=== PATIENT | female | born 1975 | race American Indian/Alaskan Native ===

== ENCOUNTER 2016-03-20 13:24 | Emergency (ER) | payer MEDICAID ==
[2016-03-20] MEDS ORDERED: BOOSTRIX IM ONE (21:13)
--- NOTE | 2016-03-20 21:45 | Cat Scan Report ---
FINAL REPORT EXAM: CT CERVICAL SPINE WO CON HISTORY: seziures, hit head on wall, c/o neck pain TECHNIQUE: CT cervical spine without contrast multiplanar reconstructions were obtained PRIORS: None. FINDINGS: There is some reversal of the normal cervical lordosis. There is disc space narrowing C5-C6 with small marginal osteophytes. No acute fracture identified. The facet joints demonstrate normal alignment. Spinous processes are intact. IMPRESSION: Reversal of the normal cervical lordosis which could be secondary to muscle spasm Mild degenerative disc changes at C5-C6.
--- NOTE | 2016-03-20 21:48 | Cat Scan Report ---
FINAL REPORT EXAM: CT HEAD/BRAIN WO CON HISTORY: hit head on concrete wall, concussed, hx of seizur TECHNIQUE: CT head without contrast PRIORS: None. FINDINGS: No acute intra-axial or extra-axial hemorrhage is identified. There is no evidence of midline shift or mass effect. The ventricles and sulci are within normal limits. Humphrey-white matter differentiation is intact. No acute parenchymal abnormalities seen. Bony calvarium is grossly intact. Visualized portions of the mastoids and paranasal sinuses are unremarkable. IMPRESSION: Negative CT head
[2016-03-20] MEDS ORDERED: KEPPRA PO ONE (23:19)
--- NOTE | 2016-03-20 23:21 | Emergency Department Report ---
HPI - General Chief Complaint: Neck Pain/Injury Time Seen by Provider: 03/20/16 20:52 - HPI HPI: 41F PMH epilepsy p/w c/o headache. Patient states she was visiting family member residential yesterday. He is bathroom and residential and as she stood up accidentally caught hair on piece of metal sticking out of concrete wall. Patient states she was startled and lost her balance and hit the front of her scalp against the concrete wall. States she was dazed for several minutes, states that since yesterday she has experienced some stiffness scalp tenderness and feels headache and haziness. Patient awake alert and oriented 3 fully ambulatory without any assistance. Denies any paresthesias in upper or lower extremities states her neck feels stiff and she states that she saw an abrasion in her right upper scalp region just her just above her hairline. ED Past Medical Hx - Past Medical History Previous Medical History?: Yes Hx Hypertension: Yes Hx Heart Attack/AMI: No Hx Congestive Heart Failure: No Hx Diabetes: Yes Hx Deep Vein Thrombosis: No Hx Pulmonary Embolism: No Hx GERD: Yes Hx Liver Disease: No Hx Renal Disease: No Hx Sickle Cell Disease: No Hx Arthritis: Yes Hx Seizures: Yes Hx Asthma: Yes Hx COPD: No Hx Tuberculosis: No Hx Dementia: No Hx HIV: No Additional medical history: neuropathy. fibromyalgia. dupuytren's - Surgical History Hx Coronary Stent: No Hx Pacemaker: No Hx Internal Defibrillator: No Additional Surgical History: heart surgery at . left hip surgery. bilateral feet and leg surgery age 5. left foot surgery, bone removed from toe - Social History Smoking Status: Current Some Day Smoker Substance Use Type: None - Medications Home Medications: Home Medications Medication Instructions Recorded Confirmed Last Taken Type ALPRAZolam [Xanax TAB] 1 mg PO QHS PRN 07/03/13 11/16/15 09/11/13 History Albuterol Sulfate [Proventil HFA] 1 - 2 puff IH Q6H PRN #1 [email or web address] 09/20/13 11/16/15 09/26/14 14:00 Rx Lisinopril [Zestril TAB] 20 mg PO QDAY #60 tablet 09/20/13 11/16/15 09/26/14 07: 00 Rx Gabapentin [Neurontin] 300 mg PO Q8HR #90 capsule 06/10/15 11/16/15 Unknown Rx Morphine Sulfate [Morphine Sulfate 30 mg PO BID 11/16/15 11/16/15 Unknown History ER] Ciprofloxacin HCl [Ciprofloxacin 500 mg PO Q12H #20 tab 11/21/15 Unknown Rx TAB] Insulin Aspart Protam & Aspart 40 unit SQ BID #1 pen 11/21/15 Unknown Rx [NovoLOG Mix 70-30 Flexpen] Sulfamethoxazole/Trimethoprim 1 each PO BID #20 tablet 11/21/15 Unknown Rx [Bactrim DS TAB] Acetaminophen [Acetaminophen TAB] 500 mg PO Q8H PRN #25 tablet 03/20/16 Unknown Rx Neomy/Baci/Polymyx Oint [Triple 10 applic TP BID #1 tube 03/20/16 Unknown Rx Antibiotic] ED Review of Systems ROS: Stated complaint: NECK/HEAD INJURY Other details as noted in HPI Constitutional: denies: chills, fever Eyes: denies: eye pain, eye discharge, vision change ENT: denies: ear pain, throat pain Respiratory: denies: cough, shortness of breath, wheezing Cardiovascular: denies: chest pain, palpitations Endocrine: no symptoms reported Gastrointestinal: denies: abdominal pain, nausea, diarrhea Genitourinary: denies: urgency, dysuria, discharge Musculoskeletal: denies: back pain, joint swelling, arthralgia Skin: denies: rash, lesions Neurological: headache. denies: weakness, paresthesias Psychiatric: denies: anxiety, depression Hematological/Lymphatic: denies: easy bleeding, easy bruising Physical Exam - Physical Exam Vital Signs: Vital Signs 03/20/16 14:24 Temperature 98.4 F Pulse Rate 112 H Blood Pressure 177/122 O2 Sat by Pulse 100 Oximetry General: General: Well appearing, well nourished, in no distress. Oriented x 3, normal mood and affect . Ambulating without difficulty. Skin: Good turgor, no rash, unusual bruising or prominent lesions HEENT: Head: Normocephalic, small 1 cm subdermal hematoma above her right side hairline and scalp forehead, small 1 cm area of abrasion below hair right upper scalp region, no visible or palpable masses, depressions, or scaring. Eyes: Visual acuity intact, conjunctiva clear, sclera non-icteric, EOM intact, PERRLA Ears: EACs clear, TMs translucent & mobile, ossicles nl appearance, hearing intact. Neck: Supple, without lesions, bruits, or adenopathy, thyroid non-enlarged and non-tender Heart: No cardiomegaly or thrills; regular rate and rhythm, no murmur or gallop Lungs: Clear to auscultation and percussion Abdomen: Bowel sounds normal, no tenderness, organomegaly, masses, or hernia Back: Spine normal without deformity or tenderness, no CVA tenderness Musculoskeletal: Normal gait and station. No misalignment, asymmetry, crepitation, defects,tenderness, masses, effusions, decreased range of motion, instability, atrophy or abnormal strength or tone in the head, neck, spine, ribs , pelvis or extremities. Neurologic: CN 2-12 normal. Sensation to pain, touch, and proprioception normal. DTRs normal in upper and lower extremities. No pathologic reflexes. Psychiatric: Oriented X3, intact recent and remote memory, judgment and insight , normal mood and affect. ED Course Vital Signs 03/20/16 14:24 Temperature 98.4 F Pulse Rate 112 H Blood Pressure 177/122 O2 Sat by Pulse 100 Oximetry ED Medical Decision Making - Medical Decision Making A/P: Minor head injury, concussion, scalp abrasion 1-CT head and neck within normal limits. Small abrasion right upper scalp region no need for any closure 2-I updated patient's tetanus today, right deltoid 3-Tylenol when necessary for pain and headache 4-patient to follow up with primary care doctor and neurologist Dr. Wood this week 5- patient's urine appeared cloudy, when I asked patient about any dysuria or increased urinary frequency she stated that she has been on ciprofloxacin this week twice a day 500 mg for UTI diagnosed by her [employer]. Patient states she is a middle of her course of treatment. Already on antibiotics. 6- I rechecked patient's vital signs, BP 137/78, T 98.8 oral, HR 79, o2sat 97% Critical care attestation.: If time is entered above; I have spent that time in minutes in the direct care of this critically ill patient, excluding procedure time. ED Disposition Clinical Impression: Concussion Qualifiers: Encounter type: initial encounter Loss of consciousness presence/duration: without LOC Qualified Code(s): S06.0X0A - Concussion without loss of consciousness, initial encounter Abrasion head Qualifiers: Encounter type: initial encounter Qualified Code(s): S00.91XA - Abrasion of unspecified part of head, initial encounter Disposition: DISCHARGED TO HOME OR SELFCARE Is pt being admited?: No Does the pt Need Aspirin: No Condition: Stable Instructions: Minor Head Injury (ED), Concussion (ED), Post Concussion Syndrome (ED) Prescriptions: Acetaminophen [Acetaminophen TAB] 500 mg PO Q8H PRN #25 tablet PRN Reason: Headache Neomy/Baci/Polymyx Oint [Triple Antibiotic] 10 applic TP BID #1 tube Referrals: PRIMARY CARE, [Primary Care Provider] - 3-5 Days [facility] [Outside] - 3-5 Days FERNANDA BILLINGSLEY MD [Staff Physician] - 3-5 Days EUGENIO WOOD MD [Staff Physician] - 3-5 Days Forms: Work/School Release Form(ED) Time of Disposition: 23:21
[2016-03-21 00:07] LABS: Bacteria,Urine 3+ /HPF (Negative); Bilirubin,Urine NEG (Negative); Blood,Urine MOD (Negative); Ketones,Urine NEG (Negative); Leukocyte Esterase,Urine MOD (Negative); Mucus,Urine FEW /HPF; Nitrite,Urine NEG (Negative); Urobilinogen,Urine < 2.0 mg/dL (<2.0)
[2016-03-21 00:09] LABS: Protein,Urine >500 mg/dL (Negative)
[2016-03-21 03:51] VITALS: BP 132/97
== END 2016-03-20 23:45 | disposition home or self-care (01) ==
LOC: ED 13:24
DX: S06.0X0A Concussion without loss of consciousness, initial encounter (principal); S00.91XA Abrasion of unspecified part of head, initial encounter; I10 Essential (primary) hypertension; E11.9 Type 2 diabetes mellitus without complications; K21.9 Gastro-esophageal reflux disease without esophagitis; J45.909 Unspecified asthma, uncomplicated; F17.200 Nicotine dependence, unspecified, uncomplicated; W22.8XXA Striking against or struck by other objects, initial encounter; Y93.9 Activity, unspecified; Y92.9 Unspecified place or not applicable; Y99.9 Unspecified external cause status
CPT/HCPCS: 70450; 72125; 81001; 81025; 87086; 90471; 90715

== ENCOUNTER 2016-09-09 14:06 | Emergency (ER) | payer MEDICAID | END 2016-09-09 14:07 | disposition left against medical advice (07) | LOC: ED 14:06 | DX: S91.312A Laceration without foreign body, left foot, initial encounter (principal); E11.319 Type 2 diabetes mellitus with unspecified diabetic retinopathy without macular edema; I10 Essential (primary) hypertension; Z72.0 Tobacco use; Z91.048 Other nonmedicinal substance allergy status; Z79.4 Long term (current) use of insulin; X58.XXXA Exposure to other specified factors, initial encounter; Y93.89 Activity, other specified; Y99.9 Unspecified external cause status; Y92.89 Other specified places as the place of occurrence of the external cause; Z53.21 Procedure and treatment not carried out due to patient leaving prior to being seen by health care provider ==

== ENCOUNTER 2016-09-10 08:30 | Inpatient (IN) | payer MEDICAID ==
--- NOTE | 2016-09-10 09:40 | XRay Report ---
LEFT FOOT, 3 views: History: Fall, injury, pain Compared to 07/09/13. The second toe is surgically absent. The second and third metatarsal heads are also absent which is presumably surgical in nature. There is moderate periosteal thickening in the distal third metatarsal. Osteomyelitis is difficult to exclude in this patient. There are degenerative changes in the midfoot and first metatarsophalangeal joint. No displaced fracture is detected. There is diffuse soft tissue swelling. IMPRESSION: No acute fracture is appreciated. Is there clinical concern for osteomyelitis?
[2016-09-10] MEDS ORDERED: NACL 0.9% 1000 ML 1,000 ML IV ONE (11:28)
--- NOTE | 2016-09-10 11:35 | Emergency Department Report ---
ED Extremity Problem HPI - General Chief complaint: Extremity Injury, Lower Stated complaint: LEFT FOOT POSS BROKEN TOE/OPEN WOUND Time Seen by Provider: 09/10/16 11:15 Source: patient Mode of arrival: Ambulatory Limitations: No Limitations - History of Present Illness Initial comments: PT states 4 days ago, she was stepping off of curb and she stepped wrong and her L foot went sideways. PT states she had her L 2nd toe removed due to infection 3 months ago. PT states the surgical site was almost healed until she twisted her foot and the surgical site opened up. PT states she has had drainage from the site. PT reports that she noticed swelling 2 days ago. PT states she has not had pain, but she does have neuropathy. PT states her surgery was in [place]. PT has not followed up with her surgeon since her foot injury. MD Complaint: other (L foot injury ) Onset/Timin -: Sudden, days(s) Location: left, lower extremity Improves with: nothing Worsens with: weight bearing, walking Associated Symptoms: fever (woke up warm, did not take temp). denies: chest pain - Related Data Home Medications Medication Instructions Recorded Confirmed Last Taken ALPRAZolam [Xanax TAB] 1 mg PO QHS PRN 07/03/13 11/16/15 09/11/13 Morphine Sulfate [Morphine Sulfate 30 mg PO BID 11/16/15 11/16/15 Unknown ER] Previous Rx's Medication Instructions Recorded Last Taken Type Albuterol Sulfate [Proventil HFA] 1 - 2 puff IH Q6H PRN #1 [email or web address] 09/20/13 09/26/14 14:00 Rx Lisinopril [Zestril TAB] 20 mg PO QDAY #60 tablet 09/20/13 09/26/14 07:00 Rx Gabapentin [Neurontin] 300 mg PO Q8HR #90 capsule 06/10/15 Unknown Rx Ciprofloxacin HCl [Ciprofloxacin 500 mg PO Q12H #20 tab 11/21/15 Unknown Rx TAB] Insulin Aspart Protam & Aspart 40 unit SQ BID #1 pen 11/21/15 Unknown Rx [NovoLOG Mix 70-30 Flexpen] Sulfamethoxazole/Trimethoprim 1 each PO BID #20 tablet 11/21/15 Unknown Rx [Bactrim DS TAB] Acetaminophen [Acetaminophen TAB] 500 mg PO Q8H PRN #25 tablet 03/20/16 Unknown Rx Neomy/Baci/Polymyx Oint [Triple 10 applic TP BID #1 tube 03/20/16 Unknown Rx Antibiotic] Allergies Allergy/AdvReac Type Severity Reaction Status Date / Time eggplant Allergy Itching Uncoded 08/25/15 15:50 ED Review of Systems ROS: Stated complaint: LEFT FOOT POSS BROKEN TOE/OPEN WOUND Other details as noted in HPI Comment: All other systems reviewed and negative Constitutional: fever (subjective ) Cardiovascular: other (has not taken her bp medication today ) Musculoskeletal: as per HPI, other (L foot swelling 2 days ago ) Skin: other (draining wound ) Neurological: numbness ED Past Medical Hx - Past Medical History Previous Medical History?: Yes Hx Hypertension: Yes Hx Heart Attack/AMI: No Hx Congestive Heart Failure: No Hx Diabetes: Yes Hx Deep Vein Thrombosis: No Hx Pulmonary Embolism: No Hx GERD: Yes Hx Liver Disease: No Hx Renal Disease: No Hx Sickle Cell Disease: No Hx Arthritis: Yes Hx Seizures: Yes Hx Asthma: Yes Hx COPD: No Hx Tuberculosis: No Hx Dementia: No Hx HIV: No Additional medical history: neuropathy. fibromyalgia. dupuytren's - Surgical History Past Surgical History?: Yes Hx Coronary Stent: No Hx Pacemaker: No Hx Internal Defibrillator: No Additional Surgical History: heart surgery at . left hip surgery. bilateral feet and leg surgery age 5. left foot surgery, bone removed from toe - Social History Smoking Status: Current Some Day Smoker Substance Use Type: None - Medications Home Medications: Home Medications Medication Instructions Recorded Confirmed Last Taken Type ALPRAZolam [Xanax TAB] 1 mg PO QHS PRN 07/03/13 11/16/15 09/11/13 History Albuterol Sulfate [Proventil HFA] 1 - 2 puff IH Q6H PRN #1 [email or web address] 09/20/13 11/16/15 09/26/14 14:00 Rx Lisinopril [Zestril TAB] 20 mg PO QDAY #60 tablet 09/20/13 11/16/15 09/26/14 07: 00 Rx Gabapentin [Neurontin] 300 mg PO Q8HR #90 capsule 06/10/15 11/16/15 Unknown Rx Morphine Sulfate [Morphine Sulfate 30 mg PO BID 11/16/15 11/16/15 Unknown History ER] Ciprofloxacin HCl [Ciprofloxacin 500 mg PO Q12H #20 tab 11/21/15 Unknown Rx TAB] Insulin Aspart Protam & Aspart 40 unit SQ BID #1 pen 11/21/15 Unknown Rx [NovoLOG Mix 70-30 Flexpen] Sulfamethoxazole/Trimethoprim 1 each PO BID #20 tablet 11/21/15 Unknown Rx [Bactrim DS TAB] Acetaminophen [Acetaminophen TAB] 500 mg PO Q8H PRN #25 tablet 03/20/16 Unknown Rx Neomy/Baci/Polymyx Oint [Triple 10 applic TP BID #1 tube 03/20/16 Unknown Rx Antibiotic] ED Physical Exam - General Limitations: No Limitations General appearance: alert, in no apparent distress - Head Head exam: Present: atraumatic, normocephalic - Eye Eye exam: Present: normal appearance. Absent: conjunctival injection - ENT ENT exam: Present: normal exam, mucous membranes moist, normal external ear exam - Neck Neck exam: Present: normal inspection, full ROM - Respiratory Respiratory exam: Absent: respiratory distress - Cardiovascular Cardiovascular Exam: Present: tachycardia - Extremities Exam Extremities exam: Present: pedal edema. Absent: calf tenderness - Expanded Lower Extremity Exam Left Lower Leg exam: Absent: normal inspection (rash noted), tenderness, swelling Foot/Toe exam: Present: swelling, laceration (wound dehescence ), ecchymosis ( left 3rd toe appears bruised, hyperpigmented and swollen ), amputation (site with 5 cm linear wound, 1 cm deep ). Absent: normal inspection, tenderness, crepidus Neuro vascular tendon exam: Present: no vascular compromise, sensory deficit ( likely related to pt's neuropathy ). Absent: foot drop - Back Exam Back exam: Present: normal inspection, full ROM - Neurological Exam Neurological exam: Present: alert, oriented X3 - Psychiatric Psychiatric exam: Present: normal affect, normal mood ED Course Vital Signs 09/10/16 09/10/16 09/10/16 08:37 12:00 12:04 Temperature 97.7 F 98.2 F Pulse Rate 126 H 104 H Respiratory 16 20 Rate Blood Pressure 147/109 Blood Pressure 180/124 [Right] O2 Sat by Pulse 100 99 Oximetry 09/10/16 09/10/16 14:07 14:27 Temperature 98.8 F Pulse Rate 109 H 112 H Respiratory 16 Rate Blood Pressure 194/110 Blood Pressure 195/110 [Right] O2 Sat by Pulse 99 Oximetry - Reevaluation(s) Reevaluation #1: 09/10/16 12:27 PT aware of XR results. PT agrees to admission - Consultations Consultation #1: 09/10/16 12:27 Dr Jimenez aware of pt and will admit - Pulse Oximetry Interpretation Digit-Finger Initial Pulse Oximetry Readin Actions Taken: none ED Medical Decision Making - Lab Data Result diagrams: 09/10/16 11:33 09/10/16 11:33 Lab Results 09/10/16 09/10/16 09/10/16 Range/Units 11:33 11:33 11:33 WBC 12.0 H (4.5-11.0) K/mm3 RBC 4.04 (3.65-5.03) M/mm3 Hgb 11.1 (10.1-14.3) gm/dl Hct 34.5 (30.3-42.9) % MCV 85 (79-97) fl MCH 27 L (28-32) pg MCHC 32 (30-34) % RDW 18.0 H (13.2-15.2) % Plt Count 378 (140-440) K/mm3 Lymph % (Auto) 24.7 (13.4-35.0) % Carlton % (Auto) 4.5 (0.0-7.3) % Eos % (Auto) 3.5 (0.0-4.3) % Baso % (Auto) 0.9 (0.0-1.8) % Lymph # 3.0 (1.2-5.4) K/mm3 Carlton # 0.5 (0.0-0.8) K/mm3 Eos # 0.4 (0.0-0.4) K/mm3 Baso # 0.1 (0.0-0.1) K/mm3 Seg Neutrophils % 66.4 (40.0-70.0) % Seg Neutrophils # 8.0 H (1.8-7.7) K/mm3 Sodium 139 (137-145) mmol/L Potassium 4.8 (3.6-5.0) mmol/L Chloride 102.3 (98-107) mmol/L Carbon Dioxide 23 (22-30) mmol/L Anion Gap 19 mmol/L BUN 18 H (7-17) mg/dL Creatinine 1.3 H (0.7-1.2) mg/dL Estimated GFR 55 ml/min BUN/Creatinine Ratio 13.84 % Glucose 157 H (65-100) mg/dL Lactic Acid 1.90 (0.7-2.0) mmol/L Calcium 9.2 (8.4-10.2) mg/dL - Radiology Data Radiology results: report reviewed XR L foot - no fx, possible OM L 3rd toe - Differential Diagnosis fracture, dislocation, dm foot infection, om Critical Care Time: No Critical care attestation.: If time is entered above; I have spent that time in minutes in the direct care of this critically ill patient, excluding procedure time. ED Disposition Clinical Impression: Diabetes Qualifiers: Diabetes mellitus type: type 1 Diabetes mellitus complication status: with skin complications Diabetes mellitus complication detail: with foot ulcer Qualified Code(s): E10.621 - Type 1 diabetes mellitus with foot ulcer Osteomyelitis of ankle or foot, acute Qualifiers: Laterality: left Qualified Code(s): M86.172 - Other acute osteomyelitis, left ankle and foot Disposition: -09 OP ADMIT IP TO THIS HOSP Is pt being admited?: Yes Does the pt Need Aspirin: No Condition: Stable Time of Disposition: 12:27
[2016-09-10 11:55] LABS: Basophils % (Auto) 0.9 % (0.0-1.8); Eosinophils % (Auto) 3.5 % (0.0-4.3); Hematocrit 34.5 % (30.3-42.9); Hemoglobin 11.1 gm/dl (10.1-14.3); Mean Corpuscular HGB Conc 32 % (30-34); Mean Corpuscular Hemoglobin 27 pg (28-32); Mean Corpuscular Volume 85 fl (79-97); Platelet Count 378 K/mm3 (140-440); Red Blood Count 4.04 M/mm3 (3.65-5.03)
[2016-09-10 12:16] LABS: BUN/Creatinine Ratio 13.84; Calcium 9.2 mg/dL (8.4-10.2); Chloride 102.3 mmol/L (98-107); Potassium 4.8 mmol/L (3.6-5.0)
[2016-09-10] MEDS ORDERED: ZOSYN/NS 3.375GM/50ML 3.375 GM/50 ML BAG IV ONE (12:29)
[2016-09-10] MEDS ORDERED: VANCOMYCIN/NS 1 GM/250 ML 1 GM/250 ML BAG IV ONE (12:30)
[2016-09-10] MEDS ORDERED: NORMODYNE IV ONE ×2 (14:11→14:23)
[2016-09-10] MEDS ORDERED: PERCOCET 5/325 ONE (14:31)
[2016-09-10] MEDS: PERCOCET 5/325 PO PRN (14:35)
[2016-09-10] MEDS ORDERED: TYLENOL PO PRN ×3 (14:43→20:09)
[2016-09-10] MEDS ORDERED: PROAIR IH PRN (14:43)
--- NOTE | 2016-09-10 14:43 | History and Physical Report ---
History of Present Illness Date of examination: 09/10/16 Date of admission: 09/10/16 12:30 Chief complaint: L foot infection and drainage of pus for 4 days. History of present illness: JENNIFER:41 y/o female with IDDM HTN Peripheral neuropathy comes in for L foot drainage of pus where her second toe was amputated.This has been happening for Pain minimal because of her lack of sensation in the foot.4 days.She attributes it to twisting her foot 4 days ago while stepping off the curb.Low grade fever present.She did not follow up with surgery in [place] where the 2 nd toe was amputated. Past Medical History Previous Medical History?: Yes Hx Hypertension: Yes Hx Diabetes: Yes Hx GERD: Yes Hx Arthritis: Yes Hx Seizures: Yes Hx Asthma: Yes Additional medical history: neuropathy. fibromyalgia. dupuytren's - Surgical History Past Surgical History?: Yes Additional Surgical History: heart surgery at . left hip surgery. bilateral feet and leg surgery age 5. left foot surgery, Second toe L foot removed recently - Social History Smoking Status: Current Some Day Smoker Substance Use Type: None - Related Data Allergies Allergy/AdvReac Type Severity Reaction Status Date / Time eggplant Allergy Itching Uncoded 08/25/15 15:50 Home Medications: Home Medications Medication Instructions Recorded Confirmed Last Taken Type ALPRAZolam [Xanax TAB] 1 mg PO QHS PRN 07/03/13 11/16/15 09/11/13 History Albuterol Sulfate [Proventil HFA] 1 - 2 puff IH Q6H PRN #1 hfa.aer.ad 09/20/13 11/16/15 09/26/14 14:00 Rx Lisinopril [Zestril TAB] 20 mg PO QDAY #60 tablet 09/20/13 11/16/15 09/26/14 07: 00 Rx Gabapentin [Neurontin] 300 mg PO Q8HR #90 capsule 06/10/15 11/16/15 Unknown Rx Morphine Sulfate [Morphine Sulfate 30 mg PO BID 11/16/15 11/16/15 Unknown History ER] Ciprofloxacin HCl [Ciprofloxacin 500 mg PO Q12H #20 tab 11/21/15 Unknown Rx TAB] Insulin Aspart Protam & Aspart 40 unit SQ BID #1 pen 11/21/15 Unknown Rx [NovoLOG Mix 70-30 Flexpen] Sulfamethoxazole/Trimethoprim 1 each PO BID #20 tablet 11/21/15 Unknown Rx [Bactrim DS TAB] Acetaminophen [Acetaminophen TAB] 500 mg PO Q8H PRN #25 tablet 03/20/16 Unknown Rx Neomy/Baci/Polymyx Oint [Triple 10 applic TP BID #1 tube 03/20/16 Unknown Rx Antibiotic] Medications and Allergies Allergies Allergy/AdvReac Type Severity Reaction Status Date / Time eggplant Allergy Itching Uncoded 08/25/15 15:50 Home Medications Medication Instructions Recorded Confirmed Last Taken Type ALPRAZolam [Xanax TAB] 1 mg PO QHS PRN 07/03/13 11/16/15 09/11/13 History Albuterol Sulfate [Proventil HFA] 1 - 2 puff IH Q6H PRN #1 hfa.aer.ad 09/20/13 11/16/15 09/26/14 14:00 Rx Lisinopril [Zestril TAB] 20 mg PO QDAY #60 tablet 09/20/13 11/16/15 09/26/14 07: 00 Rx Gabapentin [Neurontin] 300 mg PO Q8HR #90 capsule 06/10/15 11/16/15 Unknown Rx Morphine Sulfate [Morphine Sulfate 30 mg PO BID 11/16/15 11/16/15 Unknown History ER] Ciprofloxacin HCl [Ciprofloxacin 500 mg PO Q12H #20 tab 11/21/15 Unknown Rx TAB] Insulin Aspart Protam & Aspart 40 unit SQ BID #1 pen 11/21/15 Unknown Rx [NovoLOG Mix 70-30 Flexpen] Sulfamethoxazole/Trimethoprim 1 each PO BID #20 tablet 11/21/15 Unknown Rx [Bactrim DS TAB] Acetaminophen [Acetaminophen TAB] 500 mg PO Q8H PRN #25 tablet 03/20/16 Unknown Rx Neomy/Baci/Polymyx Oint [Triple 10 applic TP BID #1 tube 03/20/16 Unknown Rx Antibiotic] Active Meds: Active Medications Oxycodone/Acetaminophen (Percocet 5/325) 1 tab PO Q6H PRN PRN Reason: Pain, Moderate (4-6) Last Admin: 09/10/16 14:35 Dose: 1 tab Review of Systems All systems: negative Constitutional: fever, no weight loss, no weight gain, no chills, no sweats, no night sweats Ears, nose, mouth and throat: no nasal congestion, no nasal discharge, no dysphagia, no hoarseness, no sore throat Breasts: deferred Cardiovascular: no chest pain, no orthopnea, no palpitations, no rapid/ irregular heart beat, no edema, no syncope, no lightheadedness, no shortness of breath Respiratory: no cough, no cough with sputum, no excessive sputum, no hemoptysis , no shortness of breath, no dyspnea on exertion Gastrointestinal: no abdominal pain, no nausea, no vomiting, no diarrhea, no constipation, no change in bowel habits, no hematemesis, no coffee ground emesis Menstruation: currently menstrual Musculoskeletal: leg numbness/tingling, prior amputations (L 2nd toe), other (L foor drainage of pus near 2nd toe amputated site), no neck stiffness, no neck pain, no shooting arm pain, no low back pain Exam - Physical Exam Narrative exam: Lying Comfortably in bed - Constitutional Vitals: Temp Pulse Resp BP Pulse Ox 98.8 F 112 H 16 194/110 99 09/10/16 14:07 09/10/16 14:27 09/10/16 14:07 09/10/16 14:27 09/10/16 14:07 General appearance: Present: no acute distress, well-nourished - EENT Eyes: Present: PERRL ENT: hearing intact, clear oral mucosa - Neck Neck: Present: supple, normal ROM - Respiratory Respiratory effort: normal Respiratory: bilateral: CTA - Cardiovascular Heart rate: 76 Rhythm: regular Heart Sounds: Present: S1 & S2. Absent: rub, click - Extremities Extremities: pulses symmetrical, No edema, abnormal (Drainage of small amount of pus and small ulcer near amputated 2nd toe) Peripheral Pulses: within normal limits - Abdominal General gastrointestinal: Present: soft, non-tender, non-distended, normal bowel sounds Female genitourinary: Present: normal - Integumentary Integumentary: Present: clear, warm, dry - Musculoskeletal Musculoskeletal: gait normal, strength equal bilaterally - Psychiatric Psychiatric: appropriate mood/affect, intact judgment & insight - Neurologic Neurologic: CNII-XII intact, moves all extremities Results - Labs CBC & Chem 7: 09/10/16 11:33 09/10/16 11:33 Labs: Laboratory Last Values WBC 12.0 K/mm3 (4.5-11.0) H 09/10/16 11:33 RBC 4.04 M/mm3 (3.65-5.03) 09/10/16 11:33 Hgb 11.1 gm/dl (10.1-14.3) 09/10/16 11:33 Hct 34.5 % (30.3-42.9) 09/10/16 11:33 MCV 85 fl (79-97) 09/10/16 11:33 MCH 27 pg (28-32) L 09/10/16 11:33 MCHC 32 % (30-34) 09/10/16 11:33 RDW 18.0 % (13.2-15.2) H 09/10/16 11:33 Plt Count 378 K/mm3 (140-440) 09/10/16 11:33 Lymph % (Auto) 24.7 % (13.4-35.0) 09/10/16 11:33 Mayes % (Auto) 4.5 % (0.0-7.3) 09/10/16 11:33 Eos % (Auto) 3.5 % (0.0-4.3) 09/10/16 11:33 Baso % (Auto) 0.9 % (0.0-1.8) 09/10/16 11:33 Lymph # 3.0 K/mm3 (1.2-5.4) 09/10/16 11:33 Mayes # 0.5 K/mm3 (0.0-0.8) 09/10/16 11:33 Eos # 0.4 K/mm3 (0.0-0.4) 09/10/16 11:33 Baso # 0.1 K/mm3 (0.0-0.1) 09/10/16 11:33 Seg Neutrophils % 66.4 % (40.0-70.0) 09/10/16 11:33 Seg Neutrophils # 8.0 K/mm3 (1.8-7.7) H 09/10/16 11:33 Sodium 139 mmol/L (137-145) 09/10/16 11:33 Potassium 4.8 mmol/L (3.6-5.0) 09/10/16 11:33 Chloride 102.3 mmol/L (98-107) 09/10/16 11:33 Carbon Dioxide 23 mmol/L (22-30) 09/10/16 11:33 Anion Gap 19 mmol/L 09/10/16 11:33 BUN 18 mg/dL (7-17) H 09/10/16 11:33 Creatinine 1.3 mg/dL (0.7-1.2) H 09/10/16 11:33 Estimated GFR 55 ml/min 09/10/16 11:33 BUN/Creatinine Ratio 13.84 % 09/10/16 11:33 Glucose 157 mg/dL (65-100) H 09/10/16 11:33 Lactic Acid 1.90 mmol/L (0.7-2.0) 09/10/16 11:33 Calcium 9.2 mg/dL (8.4-10.2) 09/10/16 11:33 Short CBC 09/10/16 Range/Units 11:33 WBC 12.0 H (4.5-11.0) K/mm3 Hgb 11.1 (10.1-14.3) gm/dl Hct 34.5 (30.3-42.9) % Plt Count 378 (140-440) K/mm3 [facility] 09/10/16 11:33 Sodium 139 Potassium 4.8 Chloride 102.3 Carbon Dioxide 23 BUN 18 H Creatinine 1.3 H Glucose 157 H Calcium 9.2 - Imaging and Cardiology Imaging and Cardiology: L foot Xray -soft tissue swelling .Low suspicion for Osteomyelitis near metatarsal head of second l Metatasal. Assessment and Plan Assessment and plan: Full code Advance Directives: Yes VTE prophylaxis?: Chemical Plan of care discussed with patient/family: Yes - Patient Problems (1) Cellulitis of foot Current Visit: Yes Status: Acute Plan to address problem: Lfoot near 2nd toe amputation site.Osteomyelitis unlikely even though ED presented to me as Osteomyelitis.Started on Vancomycin and Unasyn for broad spectrum coverage including MRSA.Wound cultures ordered.Ortho consult and vascular surgery /wound consult ordered. Patient mayube discharged on oral ABX after 48 hours of IV abx (2) IDDM (insulin dependent diabetes mellitus) Current Visit: Yes Status: Chronic Plan to address problem: Cont her home insulin which was adjusted and coverage.Check A1C. (3) HTN (hypertension) Current Visit: Yes Status: Chronic Qualifiers: Hypertension type: essential hypertension Qualified Code(s): I10 - Essential (primary) hypertension Plan to address problem: Cont LISINOPRIL (4) Peripheral neuropathy Current Visit: Yes Status: Chronic Qualifiers: Peripheral neuropathy type: polyneuropathy associated with underlying disease Qualified Code(s): G63 - Polyneuropathy in diseases classified elsewhere Plan to address problem: On Gabapentin.Better control of DM (5) DVT prophylaxis Current Visit: Yes Status: Acute (6) Deep vein thrombosis (DVT) prophylaxis not tolerated by patient Current Visit: Yes Status: Acute Plan to address problem: On lovenox (7) Renal insufficiency Current Visit: Yes Status: Acute Plan to address problem: Iv fluids for now.Cr 1.3
[2016-09-10] MEDS ORDERED: INSULIN ASPART PROTAM SQ SCH (14:45)
[2016-09-10] MEDS ORDERED: ASPART SQ SCH (14:45)
[2016-09-10] MEDS ORDERED: NON-FORMULARY (Morphine Sulfate [Morphine Sulfate Er] 30 MG) PO SCH (14:45)
[2016-09-10] MEDS ORDERED: PROVENTIL IH PRN (15:02)
[2016-09-10] MEDS ORDERED: DULCOLAX PR PRN ×2 (15:07→20:09)
[2016-09-10] MEDS ORDERED: MILK OF MAGNESIA PO PRN ×2 (15:07→20:09)
[2016-09-10] MEDS ORDERED: ZOFRAN IV PRN ×2 (15:07→20:09)
[2016-09-10] MEDS ORDERED: NACL 0.45% 1000 ML 1,000 ML IV SCH (16:00)
[2016-09-10] MEDS: PEPCID IV SCH ×2 (18:18→22:00)
[2016-09-10] MEDS: NEURONTIN PO SCH ×2 (18:18→21:56)
[2016-09-10] MEDS: ZESTRIL PO SCH (18:18)
[2016-09-10] MEDS ORDERED: VANCOMYCIN PHARMACY TO DOSE IV SCH (21:00)
[2016-09-10] MEDS ORDERED: VANCOMYCIN 1,500 MG in NACL 0.9% 500 ML 500 ML IV ONE (21:00)
[2016-09-10] MEDS: MS CONTIN ER PO SCH (21:57)
[2016-09-10] MEDS: XANAX PO PRN (21:58)
[2016-09-10] MEDS: HABITROL TD SCH (22:00)
[2016-09-10] MEDS: UNASYN/NS 3 GM/100 ML 3 GM/100 ML BAG IV SCH (22:01)
[2016-09-10] MEDS: NOVOLOG SUB-Q SCH (22:03)
[2016-09-10] MEDS: DILAUDID IV PRN (23:48)
[2016-09-11] MEDS: UNASYN/NS 3 GM/100 ML 3 GM/100 ML BAG IV SCH ×4 (02:03→20:21)
--- NOTE | 2016-09-11 02:06 | Admit Criteria Form ---
Admission Criteria Documentation: OSTEOMYELITIS Clinical Indications for Admission to Inpatient Care (Place 'X' for any and all applicable criteria) Admission is indicated by 1 or more of the following (1)(2)(3)(4)(5)(6): [ ] I. Significant systemic illness indicated by 2 or more of the following: [ ]a) Core (eg rectal) temperature greater or equal [id number](37.8C) in an adult [ ]b) Oral temperature[A] greater than or equal to 99.3 degrees F ( 37.4 degrees C) in an adult [ ]c) Heart rate greater than 90 beats per minute [ ]d) Respiratory rate greater than 20 breaths per minute or PaCO2 less than 32 mm Hg (4.3 kPa) [ ]e) White blood cell count > 12,000/mm3 (12 x109/L) or < 4000/mm3 ( 4 x109/L) or > 10% band cells [ ] II. Hemodynamic instability [ ] III. Severe pain requiring acute inpatient management [ ] IV. Bacteremia [ ] V. Altered Mental status that is severe or persistent [ ] . Limb-threatening infection [ ] VII. Suspected necrotizing soft tissue infection (e.g., gas in tissue) [ ] VIII.Surgical intervention required (e.g., bone or soft tissue debridement, removal of foreign body, or revascularization procedure) not performable in outpatient or emergency department level of care(7) [X ] IX. Appropriate monitoring and therapy (IV antibiotics) cannot be immediately arranged for home or outpatient setting [ ] X. Failure of outpatient treatment [ ] XI. High-risk comorbid condition present including 1 or more of the following: [ ]a) Poorly controlled diabetes (e.g., HbA1c greater than 10% (0.1)) [ ]b) Vascular insufficiency to affected area [ ]c) Cirrhosis [ ]d) Neutropenia [ ]e) Asplenia [ ]f) Immunosuppression (e.g., chronic systemic corticosteroid use) [ ]g) Symptomatic heart failure [ ] XII. Joint involvement (e.g., septic arthritis) suspected [ ] XIII.Vertebral osteomyelitis [ ] XIV. Skull-base osteomyelitis (e.g.,"malignant external otitis")[A](8)(9)(10 ) Extended stay beyond goal length of stay may be needed for(1)(3)(4)(5)(24)(25): [ ]a) Inadequate clinical response to antibiotics (e.g., continued fever, hypotension) [ ]b) Bacteremia [ ]c) Surgical intervention needed (e.g., beyond superficial debridement)(26) [ ]d) Vertebral osteomyelitis with spinal cord compression, abscess formation, or mechanical instability [ ]e) Antibiotic-resistant organism identified (e.g., methicillin-resistant Staphylococcal aureus) [ ]f) Severe concomitant cellulitis [ ]g) Acute metabolic disorder [ ]h) Unstable comorbidities (e.g., heart failure, renal insufficiency, immunosuppressed state)(28) [ ]i) Clinically significant malnutrition [ ]j) Acute renal failure The original [facility] [employer] content created by [facility] has been revised. The portions of the content which have been revised are identified through the use of italic text or in bold, and [facility] has neither reviewed nor approved the modified material. All other unmodified content is copyright [facility].Edition 2016. Admission Criteria Met: Yes
[2016-09-11] MEDS: NEURONTIN PO SCH ×3 (05:54→21:59)
[2016-09-11] MEDS: DILAUDID IV PRN ×3 (06:00→23:21)
[2016-09-11 08:42] LABS: Basophils % (Auto) 0.6 % (0.0-1.8); Eosinophils % (Auto) 5.2 % (0.0-4.3); Hematocrit 30.9 % (30.3-42.9); Hemoglobin 9.8 gm/dl (10.1-14.3); Mean Corpuscular HGB Conc 32 % (30-34); Mean Corpuscular Hemoglobin 27 pg (28-32); Mean Corpuscular Volume 85 fl (79-97); Platelet Count 329 K/mm3 (140-440); Red Blood Count 3.66 M/mm3 (3.65-5.03); Red Cell Distribution Width 17.8 % (13.2-15.2); White Blood Count 10.8 K/mm3 (4.5-11.0)
[2016-09-11] MEDS: NOVOLOG SUB-Q SCH ×3 (08:51→18:42)
[2016-09-11 09:08] LABS: Albumin 2.8 g/dL (3.9-5); Albumin/Globulin Ratio 0.6 %; Alkaline Phosphatase 86 units/L (35-129); Anion Gap 17 mmol/L; BUN/Creatinine Ratio 13.07; Bilirubin,Total < 0.20 mg/dL (0.1-1.2); Blood Urea Nitrogen 17 mg/dL (7-17); Calcium 8.3 mg/dL (8.4-10.2); Carbon Dioxide 20 mmol/L (22-30); Chloride 107.4 mmol/L (98-107); Glucose 182 mg/dL (65-100); Potassium 4.7 mmol/L (3.6-5.0); Sodium 140 mmol/L (137-145); Total Protein 7.2 g/dL (6.3-8.2)
[2016-09-11 09:12] LABS: Alanine Aminotransferase < 5 units/L (7-56)
[2016-09-11] MEDS: MS CONTIN ER PO SCH ×2 (10:16→21:59)
[2016-09-11] MEDS: ZESTRIL PO SCH (10:16)
[2016-09-11] MEDS: VANCOMYCIN/NS 1 GM/250 ML 1 GM/250 ML BAG IV SCH (10:18)
[2016-09-11] MEDS: HABITROL TD SCH (10:28)
[2016-09-11] MEDS: PEPCID IV SCH (10:45)
--- NOTE | 2016-09-11 14:48 | Progress Note ---
Assessment and Plan Assessment and plan: Patient is a 41 y/o female with IDDM HTN Peripheral neuropathy, status post amputation of left second toe comes in for L foot drainage of pus where her second toe was amputated. This created This has been happening for Pain minimal because of her lack of sensation in the foot.4 days.She attributes it to twisting her foot 4 days ago while stepping off the curb.Low grade fever present.She did not follow up with surgery in [place] where the 2 nd toe was amputated. She'll be majoring in the ER with x-ray of the foot was unrevealing. She has very diminished sensation to the sides. * Left foot diabetic ulcer with cellulitis * Diabetes mellitus * CKD stage 3 * Hypertension * Moderate protein calorie malnutrition * Severe peripheral neuropathy * Status post second middle toe amputation on the left foot Plan * Continue IV antibiotics with vancomycin and Unasyn admission can be de- escalate that in 24 hours * Obtain ID consult * Patient may benefit from a CT scan of the foot if osteomyelitis is still a consideration. * Continue antihypertensives, and diabetics. Good diabetic control is required for good healing. * Ortho and vascular following * Nutrition consultation * Continue gabapentin * PT/OT * dvt/gi prophy * Of care discussed with the patient in detail. Hospitalist Physical - Constitutional Vitals: Temp Pulse Resp BP Pulse Ox 98 F 82 18 158/98 98 09/11/16 08:00 09/11/16 08:00 09/11/16 08:00 09/11/16 10:16 09/11/16 08:00 General appearance: Present: no acute distress, well-nourished Results - Labs CBC & Chem 7: 09/11/16 08:19 09/11/16 08:19 Labs: Laboratory Last Values WBC 10.8 K/mm3 (4.5-11.0) 09/11/16 08:19 RBC 3.66 M/mm3 (3.65-5.03) 09/11/16 08:19 Hgb 9.8 gm/dl (10.1-14.3) L 09/11/16 08:19 Hct 30.9 % (30.3-42.9) 09/11/16 08:19 MCV 85 fl (79-97) 09/11/16 08:19 MCH 27 pg (28-32) L 09/11/16 08:19 MCHC 32 % (30-34) 09/11/16 08:19 RDW 17.8 % (13.2-15.2) H 09/11/16 08:19 Plt Count 329 K/mm3 (140-440) 09/11/16 08:19 Lymph % (Auto) 30.1 % (13.4-35.0) 09/11/16 08:19 Imperial % (Auto) 5.3 % (0.0-7.3) 09/11/16 08:19 Eos % (Auto) 5.2 % (0.0-4.3) H 09/11/16 08:19 Baso % (Auto) 0.6 % (0.0-1.8) 09/11/16 08:19 Lymph # 3.2 K/mm3 (1.2-5.4) 09/11/16 08:19 Imperial # 0.6 K/mm3 (0.0-0.8) 09/11/16 08:19 Eos # 0.6 K/mm3 (0.0-0.4) H 09/11/16 08:19 Baso # 0.1 K/mm3 (0.0-0.1) 09/11/16 08:19 Seg Neutrophils % 58.8 % (40.0-70.0) 09/11/16 08:19 Seg Neutrophils # 6.3 K/mm3 (1.8-7.7) 09/11/16 08:19 Sodium 140 mmol/L (137-145) 09/11/16 08:19 Potassium 4.7 mmol/L (3.6-5.0) 09/11/16 08:19 Chloride 107.4 mmol/L (98-107) H 09/11/16 08:19 Carbon Dioxide 20 mmol/L (22-30) L 09/11/16 08:19 Anion Gap 17 mmol/L 09/11/16 08:19 BUN 17 mg/dL (7-17) 09/11/16 08:19 Creatinine 1.3 mg/dL (0.7-1.2) H 09/11/16 08:19 Estimated GFR 55 ml/min 09/11/16 08:19 BUN/Creatinine Ratio 13.07 % 09/11/16 08:19 Glucose 182 mg/dL (65-100) H 09/11/16 08:19 POC Glucose 141 (70-105) H 09/11/16 11:51 Hemoglobin A1c 9.9 % (4-6) H 09/10/16 20:41 Lactic Acid 1.90 mmol/L (0.7-2.0) 09/10/16 11:33 Calcium 8.3 mg/dL (8.4-10.2) L 09/11/16 08:19 Total Bilirubin < 0.20 mg/dL (0.1-1.2) 09/11/16 08:19 AST 9 units/L (5-40) 09/11/16 08:19 ALT < 5 units/L (7-56) L 09/11/16 08:19 Alkaline Phosphatase 86 units/L (35-129) 09/11/16 08:19 Total Protein 7.2 g/dL (6.3-8.2) 09/11/16 08:19 Albumin 2.8 g/dL (3.9-5) L 09/11/16 08:19 Albumin/Globulin Ratio 0.6 % 09/11/16 08:19
--- NOTE | 2016-09-11 14:59 | Consultation ---
History of Present Illness - Reason for Consult Consult date: 09/11/16 Left Foot Wound Requesting physician: LOYDA JACKSON - History of Present Illness This patient is a 41-year-old female, who is admitted via the emergency room on 09/10/2016 due to a left second toe amputation site infection. The toe amputation approximately 3 months ago at [facility] by Dr. Hopkins. She apparently went through some sort of revascularization procedure at the time. She followed up with his office once following surgery. The wound was doing well at that time. She stated the wound "nearly" healed up completely. However last week, she stepped off a curb awkwardly which opened the wound. She developed drainage which prompted her to go to the emergency room where she was subsequently evaluated, and has been admitted. A vascular surgery consult has been requested to further evaluate. She has been using a wraparound shoe but has not been offloading pressure from her forefoot. Past History Past Medical History: diabetes (with diabetic retinopathy and mild peripheral neuropathy), hypertension, seizures, other (mild asthma, anxiety disorder) Past Surgical History: , Other (several previous left foot surgeries as a child, open heart surgery as a child to close a PFO) Social history: (with a 12-year-old child), smoking (1.5ppd) Family history: CAD, diabetes (family history of diabetes including her mother and brother and daughter) Medications and Allergies Allergies Allergy/AdvReac Type Severity Reaction Status Date / Time eggplant Allergy Itching Uncoded 08/25/15 15:50 Home Medications Medication Instructions Recorded Confirmed Last Taken Type ALPRAZolam [Xanax TAB] 1 mg PO QHS PRN 07/03/13 11/16/15 09/11/13 History Albuterol Sulfate [Proventil HFA] 1 - 2 puff IH Q6H PRN #1 hfa.aer.ad 09/20/13 11/16/15 09/26/14 14:00 Rx Lisinopril [Zestril TAB] 20 mg PO QDAY #60 tablet 09/20/13 11/16/15 09/26/14 07: 00 Rx Gabapentin [Neurontin] 300 mg PO Q8HR #90 capsule 06/10/15 11/16/15 Unknown Rx Morphine Sulfate [Morphine Sulfate 30 mg PO BID 11/16/15 11/16/15 Unknown History ER] Ciprofloxacin HCl [Ciprofloxacin 500 mg PO Q12H #20 tab 11/21/15 Unknown Rx TAB] Insulin Aspart Protam & Aspart 40 unit SQ BID #1 pen 11/21/15 Unknown Rx [NovoLOG Mix 70-30 Flexpen] Sulfamethoxazole/Trimethoprim 1 each PO BID #20 tablet 11/21/15 Unknown Rx [Bactrim DS TAB] Acetaminophen [Acetaminophen TAB] 500 mg PO Q8H PRN #25 tablet 03/20/16 Unknown Rx Neomy/Baci/Polymyx Oint [Triple 10 applic TP BID #1 tube 03/20/16 Unknown Rx Antibiotic] Active Meds: Active Medications Acetaminophen (Tylenol) 650 mg PO Q4H PRN PRN Reason: Pain MILD(1-3)/Fever >100.5/PEREZ Albuterol (Proventil) 2.5 mg IH Q6HRT PRN PRN Reason: Wheezing Alprazolam (Xanax) 1 mg PO QHS PRN PRN Reason: Anxiety Last Admin: 09/10/16 21:58 Dose: 1 mg Bisacodyl (Dulcolax) 10 mg [place] QDAY PRN PRN Reason: Constipation unrelieved by MOM Famotidine (Pepcid) 20 mg PO BID ELADIO Gabapentin (Neurontin) 300 mg PO Q8HR ELADIO Last Admin: 09/11/16 05:54 Dose: 300 mg Hydromorphone HCl (Dilaudid) 0.5 mg IV Q3H PRN PRN Reason: Pain , Severe (7-10) Last Admin: 09/11/16 10:49 Dose: 0.5 mg Sodium Chloride (Nacl 0.45% 1000 Ml) 1,000 mls @ 42 mls/hr IV DIRECT ELADIO Last Admin: 09/11/16 07:24 Dose: 42 mls/hr Ampicillin Sodium/Sulbactam Sodium (Unasyn/Ns 3 Gm/100 Ml) 3 gm in 100 mls @ 100 mls/hr IV Q6HR ELADIO PRN Reason: Protocol Last Admin: 09/11/16 14:13 Dose: 100 mls/hr Vancomycin HCl (Vancomycin/Ns 1 Gm/250 Ml) 1 gm in 250 mls @ 166.667 mls/hr IV Q12HR ELADIO Last Admin: 09/11/16 10:18 Dose: 166 mls/hr Insulin Aspart (Novolog) 0 units SUB-Q ACHS [facility] PRN Reason: Protocol Last Admin: 09/11/16 13:25 Dose: Not Given Insulin Human Isoph/Insulin Regular (Novolin 70/30) 40 unit SUB-Q BIDDIAB [facility] Last Admin: 09/11/16 08:53 Dose: 40 unit Lisinopril (Zestril) 20 mg PO QDAY [facility] Last Admin: 09/11/16 10:16 Dose: 20 mg Magnesium Hydroxide (Milk Of Magnesia) 30 ml PO Q4H PRN PRN Reason: Constipation Morphine Sulfate (Ms Contin Er) 30 mg PO BID [facility] Last Admin: 09/11/16 10:16 Dose: 30 mg Nicotine (Habitrol) 21 mg TD QDAY [facility] Last Admin: 09/11/16 10:28 Dose: Not Given Ondansetron HCl (Zofran) 4 mg IV Q8H PRN PRN Reason: N/V unrelieved by Reglan Oxycodone/Acetaminophen (Percocet 5/325) 1 tab PO Q6H PRN PRN Reason: Pain, Moderate (4-6) Last Admin: 09/10/16 14:35 Dose: 1 tab Vancomycin HCl (Vancomycin Pharmacy To Dose) 1 each IV PKCONSULT [facility] PRN Reason: Protocol Review of Systems All systems: negative Exam - Constitutional Vitals: Temp Pulse Resp BP Pulse Ox 98 F 82 18 158/98 98 09/11/16 08:00 09/11/16 08:00 09/11/16 08:00 09/11/16 10:16 09/11/16 08:00 General appearance: Present: no acute distress - EENT Eyes: Present: EOM intact ENT: hearing intact - Neck Neck: Present: supple - Respiratory Respiratory effort: normal - Extremities Extremities: no ischemia, normal temperature, abnormal (left foot has an open macerated wound at the left second toe amputation site this extends down onto the volar aspect of the foot. I compressed the wound and was unable to express any purulence. There is no odor nor surrounding erythema appreciated. She has a palpable left dorsalis pedis, I was unable to palpate a posterior tibial pulse ) - Psychiatric Psychiatric: appropriate mood/affect, intact judgment & insight, cooperative Results - Labs CBC & Chem 7: 09/11/16 08:19 07/03/17 08:19 Labs: Abnormal lab results 09/10/16 09/10/16 09/11/16 Range/Units 17:49 20:41 05:55 Hgb (10.1-14.3) gm/dl MCH (28-32) pg RDW (13.2-15.2) % Eos % (Auto) (0.0-4.3) % Eos # (0.0-0.4) K/mm3 Chloride (98-107) mmol/L Carbon Dioxide (22-30) mmol/L Creatinine (0.7-1.2) mg/dL Glucose (65-100) mg/dL POC Glucose 147 H 221 H (70-105) Hemoglobin A1c 9.9 H (4-6) % Calcium (8.4-10.2) mg/dL ALT (7-56) units/L Albumin (3.9-5) g/dL 09/11/16 09/11/16 09/11/16 Range/Units 08:19 08:19 11:51 Hgb 9.8 L (10.1-14.3) gm/dl MCH 27 L (28-32) pg RDW 17.8 H (13.2-15.2) % Eos % (Auto) 5.2 H (0.0-4.3) % Eos # 0.6 H (0.0-0.4) K/mm3 Chloride 107.4 H (98-107) mmol/L Carbon Dioxide 20 L (22-30) mmol/L Creatinine 1.3 H (0.7-1.2) mg/dL Glucose 182 H (65-100) mg/dL POC Glucose 141 H (70-105) Hemoglobin A1c (4-6) % Calcium 8.3 L (8.4-10.2) mg/dL ALT < 5 L (7-56) units/L Albumin 2.8 L (3.9-5) g/dL Assessment and Plan Patient status post a left second toe amputation by Dr. Hopkins at [facility] approximately 3 months ago. The wound initially did well, but never completely healed. She injured her foot last week and opened up the wound. We will check an arterial duplex with and JORDAN to further assess her ability to heal distal wounds. I stressed the importance of offloading pressure from her forefoot. She likely would benefit from a [place] shoe to offload pressure of the forefoot. Agree with the ET nurse consultation. Patient will need discharge planning to follow up with the outpatient wound care clinic. - Patient Problems (1) Non-healing amputation site Current Visit: Yes Status: Acute (2) Tobacco abuse Current Visit: Yes Status: Acute (3) IDDM (insulin dependent diabetes mellitus) Current Visit: Yes Status: Acute (4) HTN (hypertension) Current Visit: Yes Status: Chronic Qualifiers: Hypertension type: essential hypertension Qualified Code(s): I10 - Essential (primary) hypertension (5) Peripheral neuropathy Current Visit: Yes Status: Chronic Qualifiers: Peripheral neuropathy type: polyneuropathy associated with underlying disease Qualified Code(s): G63 - Polyneuropathy in diseases classified elsewhere (6) Hypertension Onset Date: 07/07/13 Current Visit: No Status: Chronic Qualifiers: Hypertension type: essential hypertension Qualified Code(s): I10 - Essential (primary) hypertension (7) Diabetic retinopathy Current Visit: Yes Status: Acute Qualifiers: Diabetes mellitus type: D Diabetic retinopathy severity: D Proliferative retinopathy type: P Diabetes mellitus macular edema: D Laterality: L
--- NOTE | 2016-09-11 16:55 | Consultation ---
History of Present Illness - Reason for Consult Consult date: 09/11/16 Osteomyelitis Left Toe Requesting physician: IVAN CARREON - History of Present Illness Ms. Gutierrez is a 41-year-old woman with DM2, moderately controlled, who is admitted s/p a left 2nd toe amputation 3 months ago and now has purulent drainage from the toe. The issue has been ongoing for ~4 days. She is afebrile and denies systemic complaints. Plain film xray noted low suspicion for underlying osteomyelitis at the stump. She is prescribed empiric Vancomycin and Unasyn with blood cultures pending and wound culture requested. ID consultation is requested for further treatment recommendations. Past History Past Medical History: diabetes (with diabetic retinopathy and mild peripheral neuropathy), hypertension, seizures, other (mild asthma, anxiety disorder) Past Surgical History: , Other (several previous left foot surgeries as a child, open heart surgery as a child to close a PFO) Social history: (with a 12-year-old child), smoking (1.5ppd) Family history: CAD, diabetes (family history of diabetes including her mother and brother and daughter) Medications and Allergies Allergies Allergy/AdvReac Type Severity Reaction Status Date / Time eggplant Allergy Itching Uncoded 08/25/15 15:50 Home Medications Medication Instructions Recorded Confirmed Last Taken Type ALPRAZolam [Xanax TAB] 1 mg PO QHS PRN 07/03/13 11/16/15 09/11/13 History Albuterol Sulfate [Proventil HFA] 1 - 2 puff IH Q6H PRN #1 hfa.aer.ad 09/20/13 11/16/15 09/26/14 14:00 Rx Lisinopril [Zestril TAB] 20 mg PO QDAY #60 tablet 09/20/13 11/16/15 09/26/14 07: 00 Rx Gabapentin [Neurontin] 300 mg PO Q8HR #90 capsule 06/10/15 11/16/15 Unknown Rx Morphine Sulfate [Morphine Sulfate 30 mg PO BID 11/16/15 11/16/15 Unknown History ER] Ciprofloxacin HCl [Ciprofloxacin 500 mg PO Q12H #20 tab 11/21/15 Unknown Rx TAB] Insulin Aspart Protam & Aspart 40 unit SQ BID #1 pen 11/21/15 Unknown Rx [NovoLOG Mix 70-30 Flexpen] Sulfamethoxazole/Trimethoprim 1 each PO BID #20 tablet 11/21/15 Unknown Rx [Bactrim DS TAB] Acetaminophen [Acetaminophen TAB] 500 mg PO Q8H PRN #25 tablet 03/20/16 Unknown Rx Neomy/Baci/Polymyx Oint [Triple 10 applic TP BID #1 tube 03/20/16 Unknown Rx Antibiotic] Active Meds: Active Medications Acetaminophen (Tylenol) 650 mg PO Q4H PRN PRN Reason: Pain MILD(1-3)/Fever >100.5/PEREZ Albuterol (Proventil) 2.5 mg IH Q6HRT PRN PRN Reason: Wheezing Alprazolam (Xanax) 1 mg PO QHS PRN PRN Reason: Anxiety Last Admin: 09/10/16 21:58 Dose: 1 mg Bisacodyl (Dulcolax) 10 mg [place] QDAY PRN PRN Reason: Constipation unrelieved by MOM Famotidine (Pepcid) 20 mg PO BID ELADIO Gabapentin (Neurontin) 300 mg PO Q8HR [facility] Last Admin: 09/11/16 05:54 Dose: 300 mg Hydromorphone HCl (Dilaudid) 0.5 mg IV Q3H PRN PRN Reason: Pain , Severe (7-10) Last Admin: 09/11/16 10:49 Dose: 0.5 mg Sodium Chloride (Nacl 0.45% 1000 Ml) 1,000 mls @ 42 mls/hr IV DIRECT [facility] Last Admin: 09/11/16 07:24 Dose: 42 mls/hr Ampicillin Sodium/Sulbactam Sodium (Unasyn/Ns 3 Gm/100 Ml) 3 gm in 100 mls @ 100 mls/hr IV Q6HR ELADIO PRN Reason: Protocol Last Admin: 09/11/16 14:13 Dose: 100 mls/hr Vancomycin HCl (Vancomycin/Ns 1 Gm/250 Ml) 1 gm in 250 mls @ 166.667 mls/hr IV Q12HR [facility] Last Admin: 09/11/16 10:18 Dose: 166 mls/hr Insulin Aspart (Novolog) 0 units SUB-Q ACHS ELADIO PRN Reason: Protocol Last Admin: 09/11/16 13:25 Dose: Not Given Insulin Human Isoph/Insulin Regular (Novolin 70/30) 40 unit SUB-Q BIDDIAB [facility] Last Admin: 09/11/16 08:53 Dose: 40 unit Lisinopril (Zestril) 20 mg PO QDAY [facility] Last Admin: 09/11/16 10:16 Dose: 20 mg Magnesium Hydroxide (Milk Of Magnesia) 30 ml PO Q4H PRN PRN Reason: Constipation Morphine Sulfate (Ms Contin Er) 30 mg PO BID [facility] Last Admin: 09/11/16 10:16 Dose: 30 mg Nicotine (Habitrol) 21 mg TD QDAY [facility] Last Admin: 09/11/16 10:28 Dose: Not Given Ondansetron HCl (Zofran) 4 mg IV Q8H PRN PRN Reason: N/V unrelieved by Reglan Oxycodone/Acetaminophen (Percocet 5/325) 1 tab PO Q6H PRN PRN Reason: Pain, Moderate (4-6) Last Admin: 09/10/16 14:35 Dose: 1 tab Vancomycin HCl (Vancomycin Pharmacy To Dose) 1 each IV PKCONSULT [facility] PRN Reason: Protocol Review of Systems All systems: negative Constitutional: no fever, no chills, no sweats, no poor appetite Cardiovascular: no chest pain, no palpitations Respiratory: no cough Gastrointestinal: no abdominal pain, no nausea, no vomiting, no diarrhea Musculoskeletal: other (phantom pain left foot; abnormal movement of metatarsal bones of left foot, "cracking" sound when walking) Integumentary: no rash, no pruritis Physical Examination - Constitutional Vitals: Vital Signs Temp Pulse Resp BP Pulse Ox 98 F 82 18 158/98 98 09/11/16 08:00 09/11/16 08:00 09/11/16 08:00 09/11/16 10:16 09/11/16 08:00 Temperature -Last 24 Hours Temperature 98 F Temperature 97.9 F General appearance: Present: no acute distress, well-nourished, other (young daughter at bedside) - EENT Eyes: Absent: conjunctival injection - Neck Neck: Present: supple - Respiratory Respiratory effort: normal Respiratory: bilateral: CTA, negative: rales, rhonchi - Cardiovascular Rhythm: regular - Extremities Extremities: No edema Extremity abnormal: other (absent left 2nd tow with open wound at webspace, no significant drainage, no odor, open wound probes deeply) - Abdominal General gastrointestinal: Present: soft, non-tender, non-distended - Integumentary Integumentary: Absent: jaundice, rash - Neurologic Neurologic: no focal deficits, moves all extremities Results - Labs CBC & Chem 7: 09/11/16 08:19 09/11/16 08:19 Labs: Abnormal lab results 09/10/16 09/10/16 09/10/16 Range/Units 17:49 20:41 22:01 Hgb (10.1-14.3) gm/dl MCH (28-32) pg RDW (13.2-15.2) % Eos % (Auto) (0.0-4.3) % Eos # (0.0-0.4) K/mm3 Chloride (98-107) mmol/L Carbon Dioxide (22-30) mmol/L Creatinine (0.7-1.2) mg/dL Glucose (65-100) mg/dL POC Glucose 147 H 114 H (70-105) Hemoglobin A1c 9.9 H (4-6) % Calcium (8.4-10.2) mg/dL ALT (7-56) units/L Albumin (3.9-5) g/dL 09/11/16 09/11/16 09/11/16 Range/Units 05:55 08:19 08:19 Hgb 9.8 L (10.1-14.3) gm/dl MCH 27 L (28-32) pg RDW 17.8 H (13.2-15.2) % Eos % (Auto) 5.2 H (0.0-4.3) % Eos # 0.6 H (0.0-0.4) K/mm3 Chloride 107.4 H (98-107) mmol/L Carbon Dioxide 20 L (22-30) mmol/L Creatinine 1.3 H (0.7-1.2) mg/dL Glucose 182 H (65-100) mg/dL POC Glucose 221 H (70-105) Hemoglobin A1c (4-6) % Calcium 8.3 L (8.4-10.2) mg/dL ALT < 5 L (7-56) units/L Albumin 2.8 L (3.9-5) g/dL 09/11/16 09/11/16 Range/Units 11:51 16:30 Hgb (10.1-14.3) gm/dl MCH (28-32) pg RDW (13.2-15.2) % Eos % (Auto) (0.0-4.3) % Eos # (0.0-0.4) K/mm3 Chloride (98-107) mmol/L Carbon Dioxide (22-30) mmol/L Creatinine (0.7-1.2) mg/dL Glucose (65-100) mg/dL POC Glucose 141 H 121 H (70-105) Hemoglobin A1c (4-6) % Calcium (8.4-10.2) mg/dL ALT (7-56) units/L Albumin (3.9-5) g/dL Microbiology 09/10/16 Unknown Peripheral/Venous Blood Culture - Preliminary Culture in Progress 09/10/16 Unknown Peripheral/Venous Blood Culture - Preliminary Culture in Progress Assessment and Plan - Patient Problems (1) Cellulitis of foot Current Visit: Yes Status: Acute Plan to address problem: 1. Wound culture has been requested. Await Gram stain and culture. 2. Continue current empiric IV antibiotics. 3. Hopeful oral options with an anticipated duration of 14-21 days. 4. Recommend orthopedists assessment of patient's complaint of abnormal bone movements/ crakcing sound at left foot.
[2016-09-11] MEDS: PEPCID PO SCH (22:00)
[2016-09-12] MEDS: DILAUDID IV PRN ×2 (06:47→16:58)
[2016-09-12] MEDS: UNASYN/NS 3 GM/100 ML 3 GM/100 ML BAG IV SCH ×4 (06:54→19:08)
[2016-09-12] MEDS: NEURONTIN PO SCH ×3 (07:04→22:28)
[2016-09-12] MEDS: NOVOLOG SUB-Q SCH ×4 (09:16→22:29)
[2016-09-12] MEDS: PEPCID PO SCH ×2 (12:03→22:27)
[2016-09-12] MEDS: VANCOMYCIN/NS 1 GM/250 ML 1 GM/250 ML BAG IV SCH ×3 (12:03→22:27)
[2016-09-12] MEDS: HABITROL TD SCH (12:04)
[2016-09-12] MEDS: MS CONTIN ER PO SCH ×2 (12:06→22:27)
[2016-09-12] MEDS: ZESTRIL PO SCH (14:05)
[2016-09-12] MEDS ORDERED: NORMODYNE IV PRN (16:08)
[2016-09-12] MEDS ORDERED: AMBIEN PO PRN (16:08)
--- NOTE | 2016-09-12 16:15 | Progress Note ---
Assessment and Plan Assessment and plan: Patient is a 41-year-old woman with history of IDDM, HTN, Peripheral neuropathy , status post amputation of left second toe who presents with L foot drainage of pus where her second toe was amputated. She attributes it to twisting her foot 4 days ago while stepping off the curb. The wound split open. She did not follow up with surgery, Dr. Hopkins, in [place] where the 2nd toe was amputated. -Left foot diabetic ulcer with cellulitis: treat with iv abx, vascular is following, mri broken, unable to get ct with iv due to renal dysfunction, will get 3 phase bone scan and consulted podiatry. -Diabetes mellitus type 2: ssi -CKD stage 3: continue to monitor. -Hypertension, urgency: added iv labetalol prn. -Moderate protein calorie malnutrition -Severe peripheral neuropathy related to DM: control blood glucose -Status post second middle toe amputation on the left foot History Interval history: Patient seen and examined. Follow up on left foot pain infection. Overnight uneventful. No cp, sob, n/v or severe headaches. Imaging, old records, testing, labs, nursing notes reviewed. Hospitalist Physical - Physical exam Narrative exam: GEN: WDWN, NAD, AWAKE, ALERT, ORIENTATED x 3 CVS: Regular tachycardia, NORMAL S1S2 LUNGS/CHEST: CTA B, NORMAL CHEST EXPANSION B, GOOD AIR ENTRY B ABD: SOFT, NTND, GBS, NO REBOUND OR GUARDING EXT/SKIN: Left second toe has been amputated and there is a split at the surgical wound area with a crater on the plantar surface underneath with small amount of drainage. . MSK: FROM X 4 EXTREMITIES NEURO: CN 2-12 GROSSLY INTACT, NO FOCAL DEFICITS PSY: CALM - Constitutional Vitals: Temp Pulse Resp BP Pulse Ox 98 F 100 H 20 189/119 97 09/12/16 15:58 09/12/16 15:58 09/12/16 15:58 09/12/16 15:58 09/12/16 15:58 Results - Labs CBC & Chem 7: 09/11/16 08:19 09/11/16 08:19 Labs: Laboratory Last Values WBC 10.8 K/mm3 (4.5-11.0) 09/11/16 08:19 RBC 3.66 M/mm3 (3.65-5.03) 09/11/16 08:19 Hgb 9.8 gm/dl (10.1-14.3) L 09/11/16 08:19 Hct 30.9 % (30.3-42.9) 09/11/16 08:19 MCV 85 fl (79-97) 09/11/16 08:19 MCH 27 pg (28-32) L 09/11/16 08:19 MCHC 32 % (30-34) 09/11/16 08:19 RDW 17.8 % (13.2-15.2) H 09/11/16 08:19 Plt Count 329 K/mm3 (140-440) 09/11/16 08:19 Lymph % (Auto) 30.1 % (13.4-35.0) 09/11/16 08:19 [place] % (Auto) 5.3 % (0.0-7.3) 09/11/16 08:19 Eos % (Auto) 5.2 % (0.0-4.3) H 09/11/16 08:19 Baso % (Auto) 0.6 % (0.0-1.8) 09/11/16 08:19 Lymph # 3.2 K/mm3 (1.2-5.4) 09/11/16 08:19 [place] # 0.6 K/mm3 (0.0-0.8) 09/11/16 08:19 Eos # 0.6 K/mm3 (0.0-0.4) H 09/11/16 08:19 Baso # 0.1 K/mm3 (0.0-0.1) 09/11/16 08:19 Seg Neutrophils % 58.8 % (40.0-70.0) 09/11/16 08:19 Seg Neutrophils # 6.3 K/mm3 (1.8-7.7) 09/11/16 08:19 Sodium 140 mmol/L (137-145) 09/11/16 08:19 Potassium 4.7 mmol/L (3.6-5.0) 09/11/16 08:19 Chloride 107.4 mmol/L (98-107) H 09/11/16 08:19 Carbon Dioxide 20 mmol/L (22-30) L 09/11/16 08:19 Anion Gap 17 mmol/L 09/11/16 08:19 BUN 17 mg/dL (7-17) 09/11/16 08:19 Creatinine 1.3 mg/dL (0.7-1.2) H 09/11/16 08:19 Estimated GFR 55 ml/min 09/11/16 08:19 BUN/Creatinine Ratio 13.07 % 09/11/16 08:19 Glucose 182 mg/dL (65-100) H 09/11/16 08:19 POC Glucose 133 (70-105) H 09/12/16 11:31 Hemoglobin A1c 9.9 % (4-6) H 09/10/16 20:41 Lactic Acid 1.90 mmol/L (0.7-2.0) 09/10/16 11:33 Calcium 8.3 mg/dL (8.4-10.2) L 09/11/16 08:19 Total Bilirubin < 0.20 mg/dL (0.1-1.2) 09/11/16 08:19 AST 9 units/L (5-40) 09/11/16 08:19 ALT < 5 units/L (7-56) L 09/11/16 08:19 Alkaline Phosphatase 86 units/L (35-129) 09/11/16 08:19 Total Protein 7.2 g/dL (6.3-8.2) 09/11/16 08:19 Albumin 2.8 g/dL (3.9-5) L 09/11/16 08:19 Albumin/Globulin Ratio 0.6 % 09/11/16 08:19
[2016-09-12] MEDS: BENADRYL IV PRN (19:05)
[2016-09-13] MEDS: DILAUDID IV PRN ×2 (05:46→16:07)
[2016-09-13] MEDS: NEURONTIN PO SCH ×3 (05:46→21:42)
[2016-09-13] MEDS: UNASYN/NS 3 GM/100 ML 3 GM/100 ML BAG IV SCH (05:46)
[2016-09-13 06:32] LABS: Anion Gap 21 mmol/L; BUN/Creatinine Ratio 12.72; Blood Urea Nitrogen 14 mg/dL (7-17); Calcium 8.5 mg/dL (8.4-10.2); Carbon Dioxide 18 mmol/L (22-30); Chloride 107.9 mmol/L (98-107); Glucose 154 mg/dL (65-100); Potassium 5.1 mmol/L (3.6-5.0); Sodium 142 mmol/L (137-145)
[2016-09-13 06:40] LABS: Hematocrit 33.9 % (30.3-42.9); Mean Corpuscular HGB Conc 32 % (30-34); Mean Corpuscular Hemoglobin 27 pg (28-32); Mean Corpuscular Volume 83 fl (79-97); Red Cell Distribution Width 18.1 % (13.2-15.2); White Blood Count 10.4 K/mm3 (4.5-11.0)
[2016-09-13 06:41] LABS: Platelet Count 334 K/mm3 (140-440)
--- NOTE | 2016-09-13 07:36 | Vascular Lab Report ---
LOWER EXTREMITY ARTERIAL DUPLEX: REASON FOR EXAM: Peripheral arterial disease. COMMENTS ON THE RIGHT: Triphasic waveforms are seen proximally. Triphasic waveforms are seen distally. No significant velocity gradients are identified. No focal significant plaque is identified. Findings are consistent with normal perfusion. Findings are consistent with the ability to heal distal wounds. COMMENTS ON THE LEFT: Triphasic waveforms are seen proximally. Triphasic waveforms are seen distally. No significant velocity gradients are identified. No focal significant plaque is identified. Findings are consistent with normal perfusion. Findings are consistent with the ability to heal distal wounds. IMPRESSION: RIGHT: Essentially normal arterial flow. LEFT:Essentially normal arterial flow.
--- NOTE | 2016-09-13 07:37 | Vascular Lab Report ---
LOWER EXTREMITY ARTERIAL PHYSIOLOGIC STUDY: REASON FOR EXAM: Peripheral arterial disease. COMMENTS ON THE RIGHT: Ankle brachial index is 1.1. This value is normal. Pulse volume recording at the level of the ankle is normal. Exercise testing was not done. COMMENTS ON THE LEFT: Ankle brachial index is 1.05. This value is normal. Pulse volume recording at the level of the ankle is normal. Exercise testing was not done. IMPRESSION: RIGHT: No hemodynamically significant arterial disease. LEFT:No hemodynamically significant arterial disease.
--- NOTE | 2016-09-13 08:34 | Progress Note ---
Assessment and Plan - Patient Problems (1) Cellulitis of foot Current Visit: Yes Status: Acute Plan to address problem: 1. Will change to oral Augmentin to complete a 7-day course (last doses on September 17, 2016). 2. Patient should follow-up at wound center, perhaps at a location that is feasible for her. 3. Recommend follow-up with surgeon to determine ideal method of closure of open wound. Subjective Date of service: 09/13/16 Principal diagnosis: Left Foot Wound Interval history: Remains afebrile. No new complaints. Objective - Constitutional Vitals: Vital Signs Temp Pulse Resp BP Pulse Ox 98.0 F 109 H 20 160/106 98 09/13/16 00:40 09/13/16 00:40 09/13/16 05:46 09/13/16 00:40 09/13/16 00:40 Temperature -Last 24 Hours Temperature 98.0 F Temperature 98 F General appearance: Present: no acute distress, well-nourished - Respiratory Respiratory effort: normal Respiratory: bilateral: CTA - Cardiovascular Rhythm: regular Heart Sounds: Present: S1 & S2 Extremity abnormal: other (open left toe stump wound with surrounding hyperpigmentation, no purulence) - Gastrointestinal General gastrointestinal: Present: soft, non-distended - Integumentary Integumentary: clear, no rash - Psychiatric Psychiatric: appropriate mood/affect - Labs CBC & Chem 7: 09/13/16 05:36 09/13/16 05:36 Labs: Abnormal lab results 09/12/16 09/12/16 09/12/16 Range/Units 11:31 16:04 20:55 MCH (28-32) pg RDW (13.2-15.2) % Potassium (3.6-5.0) mmol/L Chloride (98-107) mmol/L Carbon Dioxide (22-30) mmol/L Glucose (65-100) mg/dL POC Glucose 133 H 127 H 201 H (70-105) 09/13/16 09/13/16 09/13/16 Range/Units 05:36 05:36 06:20 MCH 27 L (28-32) pg RDW 18.1 H (13.2-15.2) % Potassium 5.1 H (3.6-5.0) mmol/L Chloride 107.9 H (98-107) mmol/L Carbon Dioxide 18 L (22-30) mmol/L Glucose 154 H (65-100) mg/dL POC Glucose 176 H (70-105) Microbiology 09/10/16 Unknown Peripheral/Venous Blood Culture - Preliminary NO GROWTH AFTER 48 HOURS 09/10/16 Unknown Peripheral/Venous Blood Culture - Preliminary NO GROWTH AFTER 48 HOURS 09/11/16 Unknown Foot - Left Wound Culture - Preliminary
[2016-09-13] MEDS: NOVOLOG SUB-Q SCH ×4 (09:52→22:10)
[2016-09-13] MEDS: MS CONTIN ER PO SCH ×2 (09:53→21:41)
[2016-09-13] MEDS: PEPCID PO SCH ×2 (09:53→21:41)
[2016-09-13] MEDS: HABITROL TD SCH (09:55)
[2016-09-13] MEDS: AUGMENTIN 875 MG PO SCH ×2 (10:04→21:40)
--- NOTE | 2016-09-13 13:52 | Progress Note ---
Assessment and Plan Assessment and plan: Patient is a 41-year-old woman with history of IDDM, HTN, Peripheral neuropathy , bipolar disorder per daughter at bedside, status post amputation of left second toe who presents with L foot drainage of pus where her second toe was amputated. She attributes it to twisting her foot 4 days ago while stepping off the curb. The wound split open. She did not follow up with surgery, Dr. Hopkins , in [place] where the 2nd toe was amputated. -Left foot diabetic ulcer with cellulitis: treat with iv abx, vascular is following, mri broken? (I called the dept, no answer), unable to get ct with iv due to renal dysfunction, will get 3 phase bone scan . -Diabetes mellitus type 2: added ssi -ARF/CKD stage 3, vasomotor nephropathy, poa, improved: continue to monitor. -Hypertension, urgency: added iv labetalol prn. -Moderate protein calorie malnutrition -Severe peripheral neuropathy related to DM: control blood glucose -Status post second middle toe amputation on the left foot Spoke to Dr. Lyman, Ortho, he will see her She refusing nicotine pYes and thank you [facility], will d/c History Interval history: Patient seen and examined. Follow up on left foot pain infection. Overnight uneventful. No cp, sob, n/v or severe headaches. Imaging, old records, testing, labs, nursing notes reviewed. Hospitalist Physical - Physical exam Narrative exam: GEN: WDWN, NAD, AWAKE, ALERT, ORIENTATED x 3 CVS: Regular tachycardia, NORMAL S1S2 LUNGS/CHEST: CTA B, NORMAL CHEST EXPANSION B, GOOD AIR ENTRY B ABD: SOFT, NTND, GBS, NO REBOUND OR GUARDING EXT/SKIN: Left second toe has been amputated and there is a split at the surgical wound area with a crater on the plantar surface underneath with small amount of drainage. . MSK: FROM X 4 EXTREMITIES NEURO: CN 2-12 GROSSLY INTACT, NO FOCAL DEFICITS PSY: CALM - Constitutional Vitals: Temp Pulse Resp BP Pulse Ox 97.9 F 100 H 18 169/109 100 09/13/16 08:00 09/13/16 08:00 09/13/16 08:00 09/13/16 08:00 09/13/16 08:00 General appearance: Present: no acute distress, well-nourished Results - Labs CBC & Chem 7: 09/13/16 05:36 09/13/16 05:36 Labs: Laboratory Last Values WBC 10.4 K/mm3 (4.5-11.0) 09/13/16 05:36 RBC 4.10 M/mm3 (3.65-5.03) 09/13/16 05:36 Hgb 11.0 gm/dl (10.1-14.3) 09/13/16 05:36 Hct 33.9 % (30.3-42.9) 09/13/16 05:36 MCV 83 fl (79-97) 09/13/16 05:36 MCH 27 pg (28-32) L 09/13/16 05:36 MCHC 32 % (30-34) 09/13/16 05:36 RDW 18.1 % (13.2-15.2) H 09/13/16 05:36 Plt Count 334 K/mm3 (140-440) 09/13/16 05:36 Lymph % (Auto) 30.1 % (13.4-35.0) 09/11/16 08:19 [place] % (Auto) 5.3 % (0.0-7.3) 09/11/16 08:19 Eos % (Auto) 5.2 % (0.0-4.3) H 09/11/16 08:19 Baso % (Auto) 0.6 % (0.0-1.8) 09/11/16 08:19 Lymph # 3.2 K/mm3 (1.2-5.4) 09/11/16 08:19 Stephens # 0.6 K/mm3 (0.0-0.8) 09/11/16 08:19 Eos # 0.6 K/mm3 (0.0-0.4) H 09/11/16 08:19 Baso # 0.1 K/mm3 (0.0-0.1) 09/11/16 08:19 Seg Neutrophils % 58.8 % (40.0-70.0) 09/11/16 08:19 Seg Neutrophils # 6.3 K/mm3 (1.8-7.7) 09/11/16 08:19 Sodium 142 mmol/L (137-145) 09/13/16 05:36 Potassium 5.1 mmol/L (3.6-5.0) H 09/13/16 05:36 Chloride 107.9 mmol/L (98-107) H 09/13/16 05:36 Carbon Dioxide 18 mmol/L (22-30) L 09/13/16 05:36 Anion Gap 21 mmol/L 09/13/16 05:36 BUN 14 mg/dL (7-17) 09/13/16 05:36 Creatinine 1.1 mg/dL (0.7-1.2) 09/13/16 05:36 Estimated GFR > 60 ml/min 09/13/16 05:36 BUN/Creatinine Ratio 12.72 % 09/13/16 05:36 Glucose 154 mg/dL (65-100) H 09/13/16 05:36 POC Glucose 131 (70-105) H 09/13/16 11:51 Hemoglobin A1c 9.9 % (4-6) H 09/10/16 20:41 Lactic Acid 1.90 mmol/L (0.7-2.0) 09/10/16 11:33 Calcium 8.5 mg/dL (8.4-10.2) 09/13/16 05:36 Total Bilirubin < 0.20 mg/dL (0.1-1.2) 09/11/16 08:19 AST 9 units/L (5-40) 09/11/16 08:19 ALT < 5 units/L (7-56) L 09/11/16 08:19 Alkaline Phosphatase 86 units/L (35-129) 09/11/16 08:19 Total Protein 7.2 g/dL (6.3-8.2) 09/11/16 08:19 Albumin 2.8 g/dL (3.9-5) L 09/11/16 08:19 Albumin/Globulin Ratio 0.6 % 09/11/16 08:19
--- NOTE | 2016-09-13 15:22 | Nuclear Medicine Report ---
NUCLEAR MEDICINE BONE SCAN INFECTION 3 PHASE HISTORY: Left foot osteomyelitis. Left foot pain. FINDINGS: 25 mCi of technetium 99 MDP was administered intravenously. Perfusion, blood pool and delayed images were obtained. Comparison is made to left foot films dated 09/10/16. The perfusion images, blood pool images and delayed images demonstrate increased radiotracer accumulation overlying the left second and/or third metatarsal consistent with osteomyelitis. IMPRESSION: Positive for left foot osteomyelitis.
--- NOTE | 2016-09-13 18:59 | Consultation ---
History of Present Illness - HPI Consult date: 09/13/16 Consult reason: joint pain History of present illness: 41 y/o female with IDDM HTN Peripheral neuropathy, status post amputation of left second toe comes in for L foot drainage of pus where her second toe was amputated. This created This has been happening for Pain minimal because of her lack of sensation in the foot.4 days. She attributes it to twisting her foot 4 days ago while stepping off the curb. Low grade fever present. She did not follow up with surgery in [place] where the 2 nd toe was amputated because of transportation issues... Past History Past Medical History: diabetes (with diabetic retinopathy and mild peripheral neuropathy), hypertension, seizures, other (mild asthma, anxiety disorder) Past Surgical History: , Other (several previous left foot surgeries as a child, open heart surgery as a child to close a PFO) Social history: (with a 12-year-old child), smoking (1.5ppd) Family history: CAD, diabetes (family history of diabetes including her mother and brother and daughter) Medications and Allergies Allergies Allergy/AdvReac Type Severity Reaction Status Date / Time eggplant Allergy Itching Uncoded 08/25/15 15:50 Home Medications Medication Instructions Recorded Confirmed Last Taken Type ALPRAZolam [Xanax TAB] 1 mg PO QHS PRN 07/03/13 11/16/15 09/11/13 History Albuterol Sulfate [Proventil HFA] 1 - 2 puff IH Q6H PRN #1 hfa.aer.ad 09/20/13 11/16/15 09/26/14 14:00 Rx Lisinopril [Zestril TAB] 20 mg PO QDAY #60 tablet 09/20/13 11/16/15 09/26/14 07: 00 Rx Gabapentin [Neurontin] 300 mg PO Q8HR #90 capsule 06/10/15 11/16/15 Unknown Rx Morphine Sulfate [Morphine Sulfate 30 mg PO BID 11/16/15 11/16/15 Unknown History ER] Ciprofloxacin HCl [Ciprofloxacin 500 mg PO Q12H #20 tab 11/21/15 Unknown Rx TAB] Insulin Aspart Protam & Aspart 40 unit SQ BID #1 pen 11/21/15 Unknown Rx [NovoLOG Mix 70-30 Flexpen] Sulfamethoxazole/Trimethoprim 1 each PO BID #20 tablet 11/21/15 Unknown Rx [Bactrim DS TAB] Acetaminophen [Acetaminophen TAB] 500 mg PO Q8H PRN #25 tablet 03/20/16 Unknown Rx Neomy/Baci/Polymyx Oint [Triple 10 applic TP BID #1 tube 03/20/16 Unknown Rx Antibiotic] Active Meds: Active Medications Acetaminophen (Tylenol) 650 mg PO Q4H PRN PRN Reason: Pain MILD(1-3)/Fever >100.5/PEREZ Albuterol (Proventil) 2.5 mg IH Q6HRT PRN PRN Reason: Wheezing Alprazolam (Xanax) 1 mg PO QHS PRN PRN Reason: Anxiety Last Admin: 09/10/16 21:58 Dose: 1 mg Amoxicillin/Clavulanate Potassium (Augmentin 875 Mg) 1 each PO Q12HR [facility] Stop: 09/18/16 01:00 Last Admin: 09/13/16 10:04 Dose: 1 each Bisacodyl (Dulcolax) 10 mg NC QDAY PRN PRN Reason: Constipation unrelieved by MOM Diphenhydramine HCl (Benadryl) 25 mg IV Q6H PRN PRN Reason: Itching Last Admin: 09/12/16 19:05 Dose: 25 mg Famotidine (Pepcid) 20 mg PO BID [facility] Last Admin: 09/13/16 09:53 Dose: 20 mg Gabapentin (Neurontin) 300 mg PO Q8HR [facility] Last Admin: 09/13/16 13:54 Dose: 300 mg Hydromorphone HCl (Dilaudid) 0.5 mg IV Q3H PRN PRN Reason: Pain , Severe (7-10) Last Admin: 09/13/16 16:07 Dose: 0.5 mg Insulin Aspart (Novolog) 0 units SUB-Q ACHS [facility] PRN Reason: Protocol Last Admin: 09/13/16 18:46 Dose: 2 units Insulin Human Isoph/Insulin Regular (Novolin 70/30) 40 unit SUB-Q BIDDIAB [facility] Last Admin: 09/13/16 18:47 Dose: 40 unit Labetalol HCl (Normodyne) 10 mg IV Q4H PRN PRN Reason: HTN SBP>180 DBP>110 Morphine Sulfate (Ms Contin Er) 30 mg PO BID [facility] Last Admin: 09/13/16 09:53 Dose: 30 mg Ondansetron HCl (Zofran) 4 mg IV Q8H PRN PRN Reason: N/V unrelieved by Reglan Oxycodone/Acetaminophen (Percocet 5/325) 1 tab PO Q6H PRN PRN Reason: Pain, Moderate (4-6) Last Admin: 09/10/16 14:35 Dose: 1 tab Zolpidem Tartrate (Ambien) 5 mg PO QHS PRN PRN Reason: Sleep Physical Examination - Physical exam Narrative exam: On physical examination was limited to the left foot she was noted to have an open draining wound along the plantar surface is no odor no redness detected she had a good granulating base of healthy tissue chronic changes along the dorsal surface of the foot consistent with diabetic neuropathy Assessment and Plan Open wound left forefoot Would recommend conservative treatment with dressing changes and observation
--- NOTE | 2016-09-13 19:08 | Progress Note ---
Assessment and Plan Patient's noninvasive arterial duplex was completed. The preliminary report suggests she has triphasic flow throughout lower extremities except for the posterior tibial arteries which were monophasic. Her ankle-brachial indices she just she has adequate blood flow for distal wound healing. Discharge planning for outpatient wound care in progress. No vascular surgical intervention recommended at this point. If her wounds failed to improve then she can follow-up in our office for re-evaluation. - Patient Problems (1) Non-healing amputation site Current Visit: Yes Status: Acute (2) Tobacco abuse Current Visit: Yes Status: Acute (3) IDDM (insulin dependent diabetes mellitus) Current Visit: Yes Status: Acute (4) HTN (hypertension) Current Visit: Yes Status: Chronic Qualifiers: Hypertension type: essential hypertension Qualified Code(s): I10 - Essential (primary) hypertension (5) Peripheral neuropathy Current Visit: Yes Status: Chronic Qualifiers: Peripheral neuropathy type: polyneuropathy associated with underlying disease Qualified Code(s): G63 - Polyneuropathy in diseases classified elsewhere (6) Hypertension Onset Date: 07/07/13 Current Visit: No Status: Chronic Qualifiers: Hypertension type: essential hypertension Qualified Code(s): I10 - Essential (primary) hypertension (7) Diabetic retinopathy Current Visit: Yes Status: Acute Qualifiers: Diabetes mellitus type: D Diabetic retinopathy severity: D Proliferative retinopathy type: P Diabetes mellitus macular edema: D Laterality: L Subjective Date of service: 09/13/16 Principal diagnosis: Left Foot Wound Interval history: Patient is awake and alert with no specific complaint at present. Objective - Constitutional Vitals: Vital Signs - 12hr 09/13/16 09/13/16 08:00 15:00 Temperature 97.9 F 98.2 F Pulse Rate [ 100 H 101 H Right Radial] Respiratory 18 20 Rate Blood Pressure 169/109 171/119 [Right Arm] O2 Sat by Pulse 100 99 Oximetry General appearance: Present: no acute distress - EENT Eyes: EOM intact ENT: hearing intact - Respiratory Respiratory effort: normal Extremities: abnormal (patient's foot wound was being evaluated by the orthopedic surgeon) - Psychiatric Psychiatric: appropriate mood/affect, intact judgment & insight, cooperative - Labs CBC & Chem 7: 09/13/16 05:36 09/13/16 05:36 Labs: Abnormal lab results 09/12/16 09/13/16 09/13/16 Range/Units 20:55 05:36 05:36 MCH 27 L (28-32) pg RDW 18.1 H (13.2-15.2) % Potassium 5.1 H (3.6-5.0) mmol/L Chloride 107.9 H (98-107) mmol/L Carbon Dioxide 18 L (22-30) mmol/L Glucose 154 H (65-100) mg/dL POC Glucose 201 H (70-105) 09/13/16 09/13/16 09/13/16 Range/Units 06:20 11:51 16:09 MCH (28-32) pg RDW (13.2-15.2) % Potassium (3.6-5.0) mmol/L Chloride (98-107) mmol/L Carbon Dioxide (22-30) mmol/L Glucose (65-100) mg/dL POC Glucose 176 H 131 H 164 H (70-105)
[2016-09-13] MEDS: XANAX PO PRN (23:34)
[2016-09-14] MEDS: DILAUDID IV PRN ×2 (04:06→12:24)
[2016-09-14] MEDS: NEURONTIN PO SCH ×3 (05:38→22:17)
[2016-09-14 05:54] LABS: Hematocrit 30.1 % (30.3-42.9); Hemoglobin 9.6 gm/dl (10.1-14.3); Mean Corpuscular HGB Conc 32 % (30-34); Mean Corpuscular Hemoglobin 27 pg (28-32); Mean Corpuscular Volume 83 fl (79-97); Platelet Count 297 K/mm3 (140-440); Red Blood Count 3.62 M/mm3 (3.65-5.03); Red Cell Distribution Width 18.1 % (13.2-15.2)
[2016-09-14 06:06] LABS: Anion Gap 14 mmol/L; Blood Urea Nitrogen 17 mg/dL (7-17); Calcium 8.6 mg/dL (8.4-10.2); Carbon Dioxide 24 mmol/L (22-30); Chloride 107.5 mmol/L (98-107); Glucose 122 mg/dL (65-100); Sodium 140 mmol/L (137-145)
[2016-09-14] MEDS: NOVOLOG SUB-Q SCH ×5 (08:10→22:19)
--- NOTE | 2016-09-14 08:14 | Progress Note ---
Assessment and Plan - Patient Problems (1) Osteomyelitis of ankle or foot Current Visit: Yes Status: Acute Plan to address problem: 1. Recommendations of orthopedist were reviewed. 2. Bone scan shows evidence of osteomyelitis. The findings are difficult to interpret in the setting of recent surgery and treatment is difficult to plan with an open wound remaining at the site of supposed infection. 3. A bone biopsy WITH CULTURE wound be helpful in guiding antibiotic therapy , also a definitive plan/ timeline for wound closure. A prolonged antibiotic course is limited in eradicating a local infection if the wound will remain open. 4. Will stop Augmentin pending further plans for bone biopsy with culture and wound care plan. Subjective Date of service: 09/14/16 Principal diagnosis: Left Foot Wound Interval history: Remains afebrile, clinically stable. Continued phantom pain left foot. Objective - Constitutional Vitals: Vital Signs Temp Pulse Resp BP Pulse Ox 97.8 F 108 H 20 177/113 100 09/14/16 00:00 09/14/16 00:00 09/14/16 04:36 09/14/16 00:00 09/14/16 00:00 Temperature -Last 24 Hours Temperature 97.8 F Temperature 97.8 F Temperature 98.2 F General appearance: Present: no acute distress - Respiratory Respiratory effort: normal Respiratory: bilateral: CTA - Cardiovascular Rhythm: regular Heart Sounds: Present: S1 & S2 Extremity abnormal: other (little change of left foot, open wound remains at distal aspect of 2nd metatarsal with mild serous drainage, no expressable purulence, no erythema or increased warmth, edges of open wound have mild slough and necrotic tissue) - Gastrointestinal General gastrointestinal: Present: soft, non-distended - Integumentary Integumentary: clear, no rash - Psychiatric Psychiatric: appropriate mood/affect - Labs CBC & Chem 7: 09/14/16 05:26 09/14/16 05:26 Labs: Abnormal lab results 09/13/16 09/13/16 09/13/16 Range/Units 11:51 16:09 22:00 RBC (3.65-5.03) M/mm3 Hgb (10.1-14.3) gm/dl Hct (30.3-42.9) % MCH (28-32) pg RDW (13.2-15.2) % Glucose (65-100) mg/dL POC Glucose 131 H 164 H 66 L (70-105) 09/14/16 09/14/16 09/14/16 Range/Units 05:26 05:26 06:33 RBC 3.62 L (3.65-5.03) M/mm3 Hgb 9.6 L (10.1-14.3) gm/dl Hct 30.1 L (30.3-42.9) % MCH 27 L (28-32) pg RDW 18.1 H (13.2-15.2) % Glucose 122 H (65-100) mg/dL POC Glucose 199 H (70-105) Microbiology 09/10/16 Unknown Peripheral/Venous Blood Culture - Preliminary NO GROWTH AFTER 72 HOURS 09/10/16 Unknown Peripheral/Venous Blood Culture - Preliminary NO GROWTH AFTER 72 HOURS 09/11/16 Unknown Foot - Left Wound Culture - Preliminary - Imaging and cardiology Other: report reviewed (Bone Scan (09/13/16) - evidence of osteomyelitis at left 2nd and/or 3rd metatarsal)
[2016-09-14] MEDS: PERCOCET 5/325 PO PRN ×2 (09:21→21:00)
[2016-09-14] MEDS: NORVASC PO SCH (09:22)
[2016-09-14] MEDS: MS CONTIN ER PO SCH ×2 (09:23→22:18)
[2016-09-14] MEDS: PEPCID PO SCH ×2 (09:23→22:18)
--- NOTE | 2016-09-14 11:12 | Progress Note ---
Assessment and Plan Assessment and plan: Patient is a 41-year-old woman with history of IDDM, HTN, Peripheral neuropathy , bipolar disorder per daughter at bedside, status post amputation of left second toe who presents with L foot drainage of pus where her second toe was amputated. She attributes it to twisting her foot 4 days ago while stepping off the curb. The wound split open. She did not follow up with surgery, Dr. Hopkins , in [place] where the 2nd toe was amputated. -Left foot diabetic ulcer with cellulitis and Osteomyelitis: treat with iv abx, vascular is following, mri broken? (I called the dept, no answer), unable to get ct with iv due to renal dysfunction, 3 phase bone scan reviewed and reported as left foot osteomyelitis. -Diabetes mellitus type 2: added ssi -ARF/CKD stage 3, vasomotor nephropathy, poa, improved: continue to monitor. -Hypertension, urgency: added iv labetalol prn. -Moderate protein calorie malnutrition -Severe peripheral neuropathy related to DM: control blood glucose -Status post second middle toe amputation on the left foot Spoke to Dr. Lyman, Ortho regarding +finding of osteomyeltis left foot, he will re-evaluate. ?bone biopsy She refusing nicotine patch, will d/c History Interval history: Patient seen and examined. Follow up on left foot pain infection. Overnight uneventful. No cp, sob, n/v or severe headaches. Imaging, old records, testing, labs, nursing notes reviewed. Hospitalist Physical - Physical exam Narrative exam: GEN: WDWN, NAD, AWAKE, ALERT, ORIENTATED x 3 CVS: Regular tachycardia, NORMAL S1S2 LUNGS/CHEST: CTA B, NORMAL CHEST EXPANSION B, GOOD AIR ENTRY B ABD: SOFT, NTND, GBS, NO REBOUND OR GUARDING EXT/SKIN: Left second toe has been amputated and there is a split at the surgical wound area with a crater on the plantar surface underneath with small amount of drainage. . MSK: FROM X 4 EXTREMITIES NEURO: CN 2-12 GROSSLY INTACT, NO FOCAL DEFICITS PSY: CALM - Constitutional Vitals: Temp Pulse Resp BP Pulse Ox 97.6 F 99 H 20 139/94 98 09/14/16 07:00 09/14/16 09:22 09/14/16 07:00 09/14/16 09:22 09/14/16 07:00 General appearance: Present: no acute distress Results - Labs CBC & Chem 7: 09/14/16 05:26 09/14/16 05:26 Labs: Laboratory Last Values WBC 11.0 K/mm3 (4.5-11.0) 09/14/16 05:26 RBC 3.62 M/mm3 (3.65-5.03) L 09/14/16 05:26 Hgb 9.6 gm/dl (10.1-14.3) L 09/14/16 05:26 Hct 30.1 % (30.3-42.9) L 09/14/16 05:26 MCV 83 fl (79-97) 09/14/16 05:26 MCH 27 pg (28-32) L 09/14/16 05:26 MCHC 32 % (30-34) 09/14/16 05:26 RDW 18.1 % (13.2-15.2) H 09/14/16 05:26 Plt Count 297 K/mm3 (140-440) 09/14/16 05:26 Lymph % (Auto) 30.1 % (13.4-35.0) 09/11/16 08:19 [place] % (Auto) 5.3 % (0.0-7.3) 09/11/16 08:19 Eos % (Auto) 5.2 % (0.0-4.3) H 09/11/16 08:19 Baso % (Auto) 0.6 % (0.0-1.8) 09/11/16 08:19 Lymph # 3.2 K/mm3 (1.2-5.4) 09/11/16 08:19 [place] # 0.6 K/mm3 (0.0-0.8) 09/11/16 08:19 Eos # 0.6 K/mm3 (0.0-0.4) H 09/11/16 08:19 Baso # 0.1 K/mm3 (0.0-0.1) 09/11/16 08:19 Seg Neutrophils % 58.8 % (40.0-70.0) 09/11/16 08:19 Seg Neutrophils # 6.3 K/mm3 (1.8-7.7) 09/11/16 08:19 Sodium 142 mmol/L (137-145) 09/13/16 05:36 Potassium 5.1 mmol/L (3.6-5.0) H 09/13/16 05:36 Chloride 107.9 mmol/L (98-107) H 09/13/16 05:36 Carbon Dioxide 24 mmol/L (22-30) 09/14/16 05:26 Anion Gap 21 mmol/L 09/13/16 05:36 BUN 17 mg/dL (7-17) 09/14/16 05:26 Creatinine 1.0 mg/dL (0.7-1.2) 09/14/16 05:26 Estimated GFR > 60 ml/min 09/14/16 05:26 BUN/Creatinine Ratio 17.00 % 09/14/16 05:26 Glucose 122 mg/dL (65-100) H 09/14/16 05:26 POC Glucose 199 (70-105) H 09/14/16 06:33 Hemoglobin A1c 9.9 % (4-6) H 09/10/16 20:41 Lactic Acid 1.90 mmol/L (0.7-2.0) 09/10/16 11:33 Calcium 8.6 mg/dL (8.4-10.2) 09/14/16 05:26 Total Bilirubin < 0.20 mg/dL (0.1-1.2) 09/11/16 08:19 AST 9 units/L (5-40) 09/11/16 08:19 ALT < 5 units/L (7-56) L 09/11/16 08:19 Alkaline Phosphatase 86 units/L (35-129) 09/11/16 08:19 Total Protein 7.2 g/dL (6.3-8.2) 09/11/16 08:19 Albumin 2.8 g/dL (3.9-5) L 09/11/16 08:19 Albumin/Globulin Ratio 0.6 % 09/11/16 08:19
[2016-09-15] MEDS: NEURONTIN PO SCH ×3 (05:14→22:31)
[2016-09-15] MEDS: DILAUDID IV PRN ×2 (05:15→22:31)
[2016-09-15] MEDS: NOVOLOG SUB-Q SCH ×3 (08:28→16:58)
[2016-09-15 08:39] LABS: Hematocrit 30.2 % (30.3-42.9); Hemoglobin 9.6 gm/dl (10.1-14.3); Mean Corpuscular HGB Conc 32 % (30-34); Mean Corpuscular Hemoglobin 27 pg (28-32); Mean Corpuscular Volume 84 fl (79-97); Platelet Count 315 K/mm3 (140-440); Red Blood Count 3.59 M/mm3 (3.65-5.03); Red Cell Distribution Width 17.6 % (13.2-15.2); White Blood Count 12.1 K/mm3 (4.5-11.0)
[2016-09-15] MEDS: PEPCID PO SCH ×3 (08:56→22:31)
[2016-09-15] MEDS: NORVASC PO SCH ×2 (08:57→19:51)
[2016-09-15] MEDS: MS CONTIN ER PO SCH ×2 (08:57→10:00)
[2016-09-15 08:58] LABS: BUN/Creatinine Ratio 13.33; Calcium 8.5 mg/dL (8.4-10.2); Chloride 108.3 mmol/L (98-107); Potassium 4.9 mmol/L (3.6-5.0)
--- NOTE | 2016-09-15 12:21 | Discharge Summary ---
Providers - Providers Date of Admission: 09/10/16 12:30 Date of discharge: 09/16/16 Attending physician: BOY BERMAN 09/10/16 15:07 Consult to Physician [CONS] Routine Consulting Provider: HUGH KELLER Reason For Exam: L Foot ulcer Place consult to:: dr. keller Notified:: answering service Phone number called:: [phone] Was contact made?: Yes If yes, spoke with:: gary Time called:: 15:54 09/10/16 20:19 Consult to Physician [CONS] Routine Consulting Provider: ADAM VILLALOBOS Reason For Exam: Osteomyelitis Place consult to:: dr. villalobos Notified:: dr. villalobos Phone number called:: [phone] Was contact made?: Yes If yes, spoke with:: dr. villalobos Time called:: 09:10 Comment:: will see patient on w Consult to Wound/ET Nurse [CONS] Routine Reason For Exam: wound eval 09/11/16 09:39 Consult to Physician [CONS] Routine Consulting Provider: TIA COTTON Reason For Exam: ?OSTEOMYLITIS Place consult to:: dr. cotton Notified:: dr. cotton Phone number called:: [phone] Was contact made?: Yes If yes, spoke with:: dr. 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 She attributes it to twisting her foot 4 days ago while stepping off the curb. The wound split open. She did not follow up with surgery, Dr. Hopkins , in [place] where the 2nd toe was amputated. -Left foot diabetic ulcer with cellulitis and Osteomyelitis: treat with iv abx, vascular is following, mri broken? (I called the dept, no answer), unable to get ct with iv due to renal dysfunction, 3 phase bone scan reviewed and reported as left foot osteomyelitis. -Diabetes mellitus type 2: added ssi -ARF/CKD stage 3, vasomotor nephropathy, poa, improved: continue to monitor. -Hypertension, urgency: added iv labetalol prn. -Moderate protein calorie malnutrition -Severe peripheral neuropathy related to DM: control blood glucose -Status post second middle toe amputation on the left foot -Tobacco dependency:She refusing nicotine patch, will d/c nicotine patch 09/14/[address] Villalobos, Ortho regarding +finding of osteomyeltis left foot, he will re-evaluate. ?bone biopsy=> per ID, Dr. Cotton: " (1) Osteomyelitis of ankle or foot Current Visit: Yes Status: Acute Plan to address problem: 1. Recommendations of orthopedist were reviewed. 2. Bone scan shows evidence of osteomyelitis. The findings are difficult to interpret in the setting of recent surgery and treatment is difficult to plan with an open wound remaining at the site of supposed infection. 3. A bone biopsy WITH CULTURE wound be helpful in guiding antibiotic therapy , also a definitive plan/ timeline for wound closure. A prolonged antibiotic course is limited in eradicating a local infection if the wound will remain open. 4. Will stop Augmentin pending further plans for bone biopsy with culture and wound care plan." 09/15/[address] Villalobos, no need for inpt bone bx, bone scan difficult to interpret due to recent surgery and trauma, he recommends wound care and follow up with him as outpatient. I spoke with microbiology, wound ctx needed to be repeated. Will not be available until tomorrow (spoke with Tristin) 09/16/16: ID recommended levaquin 750mg po q48 x 6 weeks, I called [facility] in [place], [place] [phone] and left script info. Disposition: DC-01 TO HOME OR SELFCARE Time spent for discharge: 34 minutes Core Measure Documentation - Palliative Care Palliative Care/ Comfort Measures: Not Applicable - Core Measures Any of the following diagnoses?: none - VTE Discharge Requirements Deep Vein Thrombosis/Pulmonary Embolism Present on Admission: No Has pt received <5 days of overlap therapy or INR<2.0: No Anticoagulant overlap therapy prescribed at discharge: No Contraindication No Overlap Therapy order at DC: Not Indicated Exam - Physical Exam Narrative exam: GEN: WDWN, NAD, AWAKE, ALERT, ORIENTATED x 3 CVS: Regular tachycardia, NORMAL S1S2 LUNGS/CHEST: CTA B, NORMAL CHEST EXPANSION B, GOOD AIR ENTRY B ABD: SOFT, NTND, GBS, NO REBOUND OR GUARDING EXT/SKIN: Left second toe has been amputated and there is a split at the surgical wound area with a crater on the plantar surface underneath with small amount of drainage. . MSK: FROM X 4 EXTREMITIES NEURO: CN 2-12 GROSSLY INTACT, NO FOCAL DEFICITS PSY: CALM - Constitutional Vitals: Temp Pulse Resp BP Pulse Ox 97.8 F 99 H 20 119/81 100 09/15/16 08:00 09/15/16 08:00 09/15/16 08:00 09/15/16 08:00 09/15/16 08:00 Plan Activity: other (no strenous activites until cleared by PCP. ) Diet: low salt Follow up with: PRIMARY CAREMD [Primary Care Provider] - 3-5 Days Prescriptions: Levofloxacin [Levaquin] 750 mg PO Q48H #6 wk
--- NOTE | 2016-09-15 12:24 | Progress Note ---
Assessment and Plan Assessment and plan: Patient is a 41-year-old woman with history of IDDM, HTN, Peripheral neuropathy , bipolar disorder per daughter at bedside, status post amputation of left second toe who presents with L foot drainage of pus where her second toe was amputated. She attributes it to twisting her foot 4 days ago while stepping off the curb. The wound split open. She did not follow up with surgery, Dr. Hopkins , in [place] where the 2nd toe was amputated. -Left foot diabetic ulcer with cellulitis and Osteomyelitis: treat with iv abx, vascular is following, mri broken? (I called the dept, no answer), unable to get ct with iv due to renal dysfunction, 3 phase bone scan reviewed and reported as left foot osteomyelitis. -Diabetes mellitus type 2: added ssi -ARF/CKD stage 3, vasomotor nephropathy, poa, improved: continue to monitor. -Hypertension, urgency: added iv labetalol prn. -Moderate protein calorie malnutrition -Severe peripheral neuropathy related to DM: control blood glucose -Status post second middle toe amputation on the left foot -Tobacco dependency:She refusing nicotine patch, will d/c nicotine patch 09/14/[address] Lyman, Ortho regarding +finding of osteomyeltis left foot, he will re-evaluate. ?bone biopsy=> per ID, Dr. Cotton: " (1) Osteomyelitis of ankle or foot Current Visit: Yes Status: Acute Plan to address problem: 1. Recommendations of orthopedist were reviewed. 2. Bone scan shows evidence of osteomyelitis. The findings are difficult to interpret in the setting of recent surgery and treatment is difficult to plan with an open wound remaining at the site of supposed infection. 3. A bone biopsy WITH CULTURE wound be helpful in guiding antibiotic therapy , also a definitive plan/ timeline for wound closure. A prolonged antibiotic course is limited in eradicating a local infection if the wound will remain open. 4. Will stop Augmentin pending further plans for bone biopsy with culture and wound care plan." 09/15/[address] Lyman, no need for inpt bone bx, bone scan difficult to interpret due to recent surgery and trauma, he recommends wound care and follow up with him as outpatient. I spoke with microbiology, wound ctx needed to be repeated. Will not be available until tomorrow (spoke with Tristin). Anticipate discharge tomorrow, wound culture should be finalized tomorrow per Tristin. History Interval history: Patient seen and examined. Follow up on left foot pain infection. Overnight uneventful. No cp, sob, n/v or severe headaches. Imaging, old records, testing, labs, nursing notes reviewed. Hospitalist Physical - Physical exam Narrative exam: GEN: WDWN, NAD, AWAKE, ALERT, ORIENTATED x 3 CVS: Regular tachycardia, NORMAL S1S2 LUNGS/CHEST: CTA B, NORMAL CHEST EXPANSION B, GOOD AIR ENTRY B ABD: SOFT, NTND, GBS, NO REBOUND OR GUARDING EXT/SKIN: Left second toe has been amputated and there is a split at the surgical wound area with a crater on the plantar surface underneath with small amount of drainage. . MSK: FROM X 4 EXTREMITIES NEURO: CN 2-12 GROSSLY INTACT, NO FOCAL DEFICITS PSY: CALM - Constitutional Vitals: Temp Pulse Resp BP Pulse Ox 97.8 F 99 H 20 119/81 100 09/15/16 08:00 09/15/16 08:00 09/15/16 08:00 09/15/16 08:00 09/15/16 08:00 General appearance: Present: no acute distress Results - Labs CBC & Chem 7: 09/15/16 08:26 09/15/16 08:26 Labs: Laboratory Last Values WBC 12.1 K/mm3 (4.5-11.0) H 09/15/16 08:26 RBC 3.59 M/mm3 (3.65-5.03) L 09/15/16 08:26 Hgb 9.6 gm/dl (10.1-14.3) L 09/15/16 08:26 Hct 30.2 % (30.3-42.9) L 09/15/16 08:26 MCV 84 fl (79-97) 09/15/16 08:26 MCH 27 pg (28-32) L 09/15/16 08:26 MCHC 32 % (30-34) 09/15/16 08:26 RDW 17.6 % (13.2-15.2) H 09/15/16 08:26 Plt Count 315 K/mm3 (140-440) 09/15/16 08:26 Lymph % (Auto) 30.1 % (13.4-35.0) 09/11/16 08:19 [place] % (Auto) 5.3 % (0.0-7.3) 09/11/16 08:19 Eos % (Auto) 5.2 % (0.0-4.3) H 09/11/16 08:19 Baso % (Auto) 0.6 % (0.0-1.8) 09/11/16 08:19 Lymph # 3.2 K/mm3 (1.2-5.4) 09/11/16 08:19 [place] # 0.6 K/mm3 (0.0-0.8) 09/11/16 08:19 Eos # 0.6 K/mm3 (0.0-0.4) H 09/11/16 08:19 Baso # 0.1 K/mm3 (0.0-0.1) 09/11/16 08:19 Seg Neutrophils % 58.8 % (40.0-70.0) 09/11/16 08:19 Seg Neutrophils # 6.3 K/mm3 (1.8-7.7) 09/11/16 08:19 Sodium 140 mmol/L (137-145) 09/15/16 08:26 Potassium 4.9 mmol/L (3.6-5.0) 09/15/16 08:26 Chloride 108.3 mmol/L (98-107) H 09/15/16 08:26 Carbon Dioxide 21 mmol/L (22-30) L 09/15/16 08:26 Anion Gap 16 mmol/L 09/15/16 08:26 BUN 20 mg/dL (7-17) H 09/15/16 08:26 Creatinine 1.5 mg/dL (0.7-1.2) H 09/15/16 08:26 Estimated GFR 46 ml/min 09/15/16 08:26 BUN/Creatinine Ratio 13.33 % 09/15/16 08:26 Glucose 159 mg/dL (65-100) H 09/15/16 08:26 POC Glucose 65 (70-105) L 09/15/16 12:01 Hemoglobin A1c 9.9 % (4-6) H 09/10/16 20:41 Lactic Acid 1.90 mmol/L (0.7-2.0) 09/10/16 11:33 Calcium 8.5 mg/dL (8.4-10.2) 09/15/16 08:26 Total Bilirubin < 0.20 mg/dL (0.1-1.2) 09/11/16 08:19 AST 9 units/L (5-40) 09/11/16 08:19 ALT < 5 units/L (7-56) L 09/11/16 08:19 Alkaline Phosphatase 86 units/L (35-129) 09/11/16 08:19 Total Protein 7.2 g/dL (6.3-8.2) 09/11/16 08:19 Albumin 2.8 g/dL (3.9-5) L 09/11/16 08:19 Albumin/Globulin Ratio 0.6 % 09/11/16 08:19
[2016-09-16] MEDS: NOVOLOG SUB-Q SCH ×4 (02:32→17:10)
[2016-09-16] MEDS: BENADRYL IV PRN (02:37)
[2016-09-16] MEDS: MS CONTIN ER PO SCH ×3 (02:45→21:15)
[2016-09-16] MEDS: NEURONTIN PO SCH ×3 (05:33→21:15)
[2016-09-16 08:34] VITALS: BP 124/88
[2016-09-16] MEDS: PEPCID PO SCH ×2 (10:02→21:15)
[2016-09-16] MEDS: NORVASC PO SCH (10:02)
--- NOTE | 2016-09-16 11:16 | Progress Note ---
Assessment and Plan Assessment and plan: Patient is a 41-year-old woman with history of IDDM, HTN, Peripheral neuropathy , bipolar disorder per daughter at bedside, status post amputation of left second toe who presents with L foot drainage of pus where her second toe was amputated. She attributes it to twisting her foot 4 days ago while stepping off the curb. The wound split open. She did not follow up with surgery, Dr. Hopkins , in [place] where the 2nd toe was amputated. -Left foot diabetic ulcer with cellulitis and Osteomyelitis: treat with iv abx, vascular is following, mri broken? (I called the dept, no answer), unable to get ct with iv due to renal dysfunction, 3 phase bone scan reviewed and reported as left foot osteomyelitis. -Diabetes mellitus type 2: added ssi -ARF/CKD stage 3, vasomotor nephropathy, poa, improved: continue to monitor. -Hypertension, urgency: added iv labetalol prn. -Moderate protein calorie malnutrition -Severe peripheral neuropathy related to DM: control blood glucose -Status post second middle toe amputation on the left foot -Tobacco dependency:She refusing nicotine patch, will d/c nicotine patch 09/14/[address] Lyman, Ortho regarding +finding of osteomyeltis left foot, he will re-evaluate. ?bone biopsy=> per ID, Dr. Cotton: " (1) Osteomyelitis of ankle or foot Current Visit: Yes Status: Acute Plan to address problem: 1. Recommendations of orthopedist were reviewed. 2. Bone scan shows evidence of osteomyelitis. The findings are difficult to interpret in the setting of recent surgery and treatment is difficult to plan with an open wound remaining at the site of supposed infection. 3. A bone biopsy WITH CULTURE wound be helpful in guiding antibiotic therapy , also a definitive plan/ timeline for wound closure. A prolonged antibiotic course is limited in eradicating a local infection if the wound will remain open. 4. Will stop Augmentin pending further plans for bone biopsy with culture and wound care plan." 09/15/[address] Lyman, no need for inpt bone bx, he recommends wound care and follow up with him as outpatient. I spoke with microbiology, wound ctx needed to be repeated. Will not be available until tomorrow (spoke with Amy) . Anticipate discharge tomorrow, wound culture should be finalized tomorrow per Amy Shaver 09/16/16: No one in micro to read wound culture per Sylvia in Microbiology department, pt is upset because she wants to go home. D/w administration. History Interval history: Patient seen and examined. Follow up on left foot pain infection. Overnight uneventful. No cp, sob, n/v or severe headaches. Imaging, old records, testing, labs, nursing notes reviewed. Hospitalist Physical - Physical exam Narrative exam: GEN: WDWN, NAD, AWAKE, ALERT, ORIENTATED x 3 CVS: Regular tachycardia, NORMAL S1S2 LUNGS/CHEST: CTA B, NORMAL CHEST EXPANSION B, GOOD AIR ENTRY B ABD: SOFT, NTND, GBS, NO REBOUND OR GUARDING EXT/SKIN: Left second toe has been amputated and there is a split at the surgical wound area with a crater on the plantar surface underneath with small amount of drainage. . MSK: FROM X 4 EXTREMITIES NEURO: CN 2-12 GROSSLY INTACT, NO FOCAL DEFICITS PSY: CALM - Constitutional Vitals: Temp Pulse Resp BP Pulse Ox 99.0 F 107 H 20 124/88 99 09/16/16 07:00 09/16/16 07:00 09/16/16 07:00 09/16/16 07:00 09/16/16 07:00 General appearance: Present: no acute distress Results - Labs CBC & Chem 7: 09/15/16 08:26 09/15/16 08:26 Labs: Laboratory Last Values WBC 12.1 K/mm3 (4.5-11.0) H 09/15/16 08:26 RBC 3.59 M/mm3 (3.65-5.03) L 09/15/16 08:26 Hgb 9.6 gm/dl (10.1-14.3) L 09/15/16 08:26 Hct 30.2 % (30.3-42.9) L 09/15/16 08:26 MCV 84 fl (79-97) 09/15/16 08:26 MCH 27 pg (28-32) L 09/15/16 08:26 MCHC 32 % (30-34) 09/15/16 08:26 RDW 17.6 % (13.2-15.2) H 09/15/16 08:26 Plt Count 315 K/mm3 (140-440) 09/15/16 08:26 Lymph % (Auto) 30.1 % (13.4-35.0) 09/11/16 08:19 Wilkinson % (Auto) 5.3 % (0.0-7.3) 09/11/16 08:19 Eos % (Auto) 5.2 % (0.0-4.3) H 09/11/16 08:19 Baso % (Auto) 0.6 % (0.0-1.8) 09/11/16 08:19 Lymph # 3.2 K/mm3 (1.2-5.4) 09/11/16 08:19 Wilkinson # 0.6 K/mm3 (0.0-0.8) 09/11/16 08:19 Eos # 0.6 K/mm3 (0.0-0.4) H 09/11/16 08:19 Baso # 0.1 K/mm3 (0.0-0.1) 09/11/16 08:19 Seg Neutrophils % 58.8 % (40.0-70.0) 09/11/16 08:19 Seg Neutrophils # 6.3 K/mm3 (1.8-7.7) 09/11/16 08:19 Sodium 140 mmol/L (137-145) 09/15/16 08:26 Potassium 4.9 mmol/L (3.6-5.0) 09/15/16 08:26 Chloride 108.3 mmol/L (98-107) H 09/15/16 08:26 Carbon Dioxide 21 mmol/L (22-30) L 09/15/16 08:26 Anion Gap 16 mmol/L 09/15/16 08:26 BUN 20 mg/dL (7-17) H 09/15/16 08:26 Creatinine 1.5 mg/dL (0.7-1.2) H 09/15/16 08:26 Estimated GFR 46 ml/min 09/15/16 08:26 BUN/Creatinine Ratio 13.33 % 09/15/16 08:26 Glucose 159 mg/dL (65-100) H 09/15/16 08:26 POC Glucose 136 (70-105) H 09/16/16 06:46 Hemoglobin A1c 9.9 % (4-6) H 09/10/16 20:41 Lactic Acid 1.90 mmol/L (0.7-2.0) 09/10/16 11:33 Calcium 8.5 mg/dL (8.4-10.2) 09/15/16 08:26 Total Bilirubin < 0.20 mg/dL (0.1-1.2) 09/11/16 08:19 AST 9 units/L (5-40) 09/11/16 08:19 ALT < 5 units/L (7-56) L 09/11/16 08:19 Alkaline Phosphatase 86 units/L (35-129) 09/11/16 08:19 Total Protein 7.2 g/dL (6.3-8.2) 09/11/16 08:19 Albumin 2.8 g/dL (3.9-5) L 09/11/16 08:19 Albumin/Globulin Ratio 0.6 % 09/11/16 08:19
[2016-09-16] MEDS: DILAUDID IV PRN (15:19)
--- NOTE | 2016-09-16 18:30 | Progress Note ---
Assessment and Plan - Patient Problems (1) Osteomyelitis of ankle or foot Current Visit: Yes Status: Acute Plan to address problem: 1. Conservative management is recommended by ortho. 2. Will treat empirically with Levaquin or Avelox (NOT CIPRO) to complete 6 weeks of therapy. 3. Continue aggressive wound management. 4. Patient may follow-up with me at my office. I have provided contact information and she is instructed to call for an appointment. Subjective Date of service: 09/16/16 Principal diagnosis: Left Foot Wound Interval history: Remains stable. No new clinical issues. Objective - Constitutional Vitals: Vital Signs Temp Pulse Resp BP Pulse Ox 99.0 F 107 H 20 124/88 99 09/16/16 07:00 09/16/16 07:00 09/16/16 07:00 09/16/16 07:00 09/16/16 07:00 Temperature -Last 24 Hours Temperature 99.0 F Temperature 98.1 F General appearance: Present: no acute distress - Respiratory Respiratory effort: normal Respiratory: bilateral: CTA - Cardiovascular Rhythm: regular Heart Sounds: Present: S1 & S2 Extremity abnormal: other (unchanged left foot, serous drainage from open wound) - Gastrointestinal General gastrointestinal: Present: soft, non-distended - Integumentary Integumentary: clear, no rash - Neurologic Neurologic: no focal deficits, moves all extremities - Labs CBC & Chem 7: 09/15/16 08:26 09/15/16 08:26 Labs: Abnormal lab results 09/15/16 09/16/16 09/16/16 Range/Units 21:04 05:11 06:46 POC Glucose 125 H 63 L 136 H (70-105) 09/16/16 Range/Units 11:25 POC Glucose 152 H (70-105) Microbiology 09/10/16 Unknown Peripheral/Venous Blood Culture - Final NO GROWTH AFTER 5 DAYS 09/10/16 Unknown Peripheral/Venous Blood Culture - Final NO GROWTH AFTER 5 DAYS 09/11/16 Unknown Foot - Left Wound Culture - Preliminary Gram Negative Bill Beta Hemolytic Strep Group B
[2016-09-16] MEDS ORDERED: LEVAQUIN PO SCH (19:00)
== END 2016-09-16 21:30 | disposition home or self-care (01) | DRG 919 ==
LOC: ED 08:30 → 3A 12:30
PROVIDERS: ADMIT Internal Medicine; ATTEND Internal Medicine
DX: T81.89XA Other complications of procedures, not elsewhere classified, initial encounter (principal); N17.0 Acute kidney failure with tubular necrosis; E11.69 Type 2 diabetes mellitus with other specified complication; M86.179 Other acute osteomyelitis, unspecified ankle and foot; L03.116 Cellulitis of left lower limb; E44.0 Moderate protein-calorie malnutrition; E11.42 Type 2 diabetes mellitus with diabetic polyneuropathy; F31.9 Bipolar disorder, unspecified; E11.621 Type 2 diabetes mellitus with foot ulcer; N18.3 Chronic kidney disease, stage 3 (moderate); E11.319 Type 2 diabetes mellitus with unspecified diabetic retinopathy without macular edema; I12.9 Hypertensive chronic kidney disease with stage 1 through stage 4 chronic kidney disease, or unspecified chronic kidney disease; F17.210 Nicotine dependence, cigarettes, uncomplicated; Z53.29 Procedure and treatment not carried out because of patient's decision for other reasons; K21.9 Gastro-esophageal reflux disease without esophagitis; J45.909 Unspecified asthma, uncomplicated; M19.90 Unspecified osteoarthritis, unspecified site; M79.7 Fibromyalgia; Z79.4 Long term (current) use of insulin; Z89.422 Acquired absence of other left toe(s); Z79.899 Other long term (current) drug therapy; Z82.49 Family history of ischemic heart disease and other diseases of the circulatory system; Z83.3 Family history of diabetes mellitus; Z68.34 Body mass index [BMI] 34.0-34.9, adult
CPT/HCPCS: 36415; 78315; 80048; 80053; 82140; 82962; 83036; 85025; 85027; 87040; 87076; 87116; 87186; 93922; 93925; 96374; 99406; A9503; J0295; J1170; J1200; J1815; J3370; J7030; J7040

== ENCOUNTER 2016-09-29 11:11 | Outpatient (CLI) | payer MEDICAID ==
[2016-09-29] MEDS ORDERED: XYLOCAINE TOPICAL 4% TP ONE ×2 (13:00)
== END 2016-09-29 11:12 | disposition home or self-care (01) ==
LOC: WOUND 11:11
PROVIDERS: ATTEND Podiatrist
DX: T87.89 Other complications of amputation stump (principal); E11.621 Type 2 diabetes mellitus with foot ulcer; L97.523 Non-pressure chronic ulcer of other part of left foot with necrosis of muscle; E11.40 Type 2 diabetes mellitus with diabetic neuropathy, unspecified; E11.69 Type 2 diabetes mellitus with other specified complication; M86.172 Other acute osteomyelitis, left ankle and foot; K21.9 Gastro-esophageal reflux disease without esophagitis; M19.90 Unspecified osteoarthritis, unspecified site; J45.909 Unspecified asthma, uncomplicated; I10 Essential (primary) hypertension; F17.200 Nicotine dependence, unspecified, uncomplicated; Z89.422 Acquired absence of other left toe(s); Y83.5 Amputation of limb(s) as the cause of abnormal reaction of the patient, or of later complication, without mention of misadventure at the time of the procedure
CPT/HCPCS: 11043; G0463

== ENCOUNTER 2016-10-13 09:12 | Outpatient (CLI) | payer MEDICAID ==
[2016-10-13] MEDS ORDERED: XYLOCAINE TOPICAL 4% TP ONE ×2 (09:24→09:51)
== END 2016-10-13 09:13 | disposition home or self-care (01) ==
LOC: WOUND 09:12
PROVIDERS: ATTEND Podiatrist
DX: T87.89 Other complications of amputation stump (principal); E11.621 Type 2 diabetes mellitus with foot ulcer; L97.523 Non-pressure chronic ulcer of other part of left foot with necrosis of muscle; E11.40 Type 2 diabetes mellitus with diabetic neuropathy, unspecified; E11.69 Type 2 diabetes mellitus with other specified complication; M86.172 Other acute osteomyelitis, left ankle and foot; I10 Essential (primary) hypertension; K21.9 Gastro-esophageal reflux disease without esophagitis; M19.90 Unspecified osteoarthritis, unspecified site; J45.909 Unspecified asthma, uncomplicated; F17.200 Nicotine dependence, unspecified, uncomplicated; Y83.5 Amputation of limb(s) as the cause of abnormal reaction of the patient, or of later complication, without mention of misadventure at the time of the procedure
CPT/HCPCS: 71020

== ENCOUNTER 2016-10-13 12:06 | Outpatient (CLI) | payer MEDICAID ==
--- NOTE | 2016-10-13 12:48 | XRay Report ---
CHEST 2 VIEWS INDICATION: Hypertension. COMPARISON: 07/22/2013. FINDINGS: PA and lateral chest radiographs demonstrate normal cardiomediastinal silhouette. Clear lungs. Lower thoracic spondylosis. Stable bridging/partial fusion of left fourth and fifth posterior ribs. Interval right PICC removal. CONCLUSION: No acute disease in the chest. Thank you for the opportunity to participate in this patient's care.
== END 2016-10-13 12:07 | disposition home or self-care (01) ==
LOC: XRAY 12:06
PROVIDERS: ATTEND Podiatrist
DX: I10 Essential (primary) hypertension (principal); M47.894 Other spondylosis, thoracic region; E11.9 Type 2 diabetes mellitus without complications; F41.9 Anxiety disorder, unspecified; J45.909 Unspecified asthma, uncomplicated; F17.200 Nicotine dependence, unspecified, uncomplicated
CPT/HCPCS: 71020

== ENCOUNTER 2016-10-16 07:57 | Outpatient (CLI) | payer MEDICAID | END 2016-10-16 07:58 | disposition home or self-care (01) | LOC: WOUND 07:57 | PROVIDERS: ATTEND Internal Medicine | DX: E11.621 Type 2 diabetes mellitus with foot ulcer (principal); L97.523 Non-pressure chronic ulcer of other part of left foot with necrosis of muscle; E11.69 Type 2 diabetes mellitus with other specified complication; M86.172 Other acute osteomyelitis, left ankle and foot; E11.40 Type 2 diabetes mellitus with diabetic neuropathy, unspecified; Z89.422 Acquired absence of other left toe(s); I10 Essential (primary) hypertension; K21.9 Gastro-esophageal reflux disease without esophagitis; J45.909 Unspecified asthma, uncomplicated; M19.90 Unspecified osteoarthritis, unspecified site; F17.200 Nicotine dependence, unspecified, uncomplicated | CPT/HCPCS: 82962; G0277; 99183 ==

== ENCOUNTER 2016-11-03 11:03 | Outpatient (CLI) | payer MEDICAID ==
[2016-11-03] MEDS ORDERED: XYLOCAINE TOPICAL 4% TP ONE (11:45)
== END 2016-11-03 11:04 | disposition home or self-care (01) ==
LOC: WOUND 11:03
PROVIDERS: ATTEND Podiatrist
DX: T87.89 Other complications of amputation stump (principal); E11.621 Type 2 diabetes mellitus with foot ulcer; L97.412 Non-pressure chronic ulcer of right heel and midfoot with fat layer exposed; E11.40 Type 2 diabetes mellitus with diabetic neuropathy, unspecified; L97.523 Non-pressure chronic ulcer of other part of left foot with necrosis of muscle; E11.69 Type 2 diabetes mellitus with other specified complication; M86.172 Other acute osteomyelitis, left ankle and foot; K21.9 Gastro-esophageal reflux disease without esophagitis; M19.90 Unspecified osteoarthritis, unspecified site; J45.909 Unspecified asthma, uncomplicated; I10 Essential (primary) hypertension; F17.200 Nicotine dependence, unspecified, uncomplicated; Z89.422 Acquired absence of other left toe(s); Y83.5 Amputation of limb(s) as the cause of abnormal reaction of the patient, or of later complication, without mention of misadventure at the time of the procedure

== ENCOUNTER 2016-11-10 10:16 | Outpatient (CLI) | payer MEDICAID ==
[2016-11-10] MEDS ORDERED: XYLOCAINE TOPICAL 4% TP ONE ×2 (10:26→10:36)
== END 2016-11-10 10:17 | disposition home or self-care (01) ==
LOC: WOUND 10:16
PROVIDERS: ATTEND Podiatrist
DX: T87.89 Other complications of amputation stump (principal); E11.621 Type 2 diabetes mellitus with foot ulcer; L97.412 Non-pressure chronic ulcer of right heel and midfoot with fat layer exposed; L97.523 Non-pressure chronic ulcer of other part of left foot with necrosis of muscle; E11.40 Type 2 diabetes mellitus with diabetic neuropathy, unspecified; E11.69 Type 2 diabetes mellitus with other specified complication; M86.172 Other acute osteomyelitis, left ankle and foot; K21.9 Gastro-esophageal reflux disease without esophagitis; M19.90 Unspecified osteoarthritis, unspecified site; J45.909 Unspecified asthma, uncomplicated; I10 Essential (primary) hypertension; F17.210 Nicotine dependence, cigarettes, uncomplicated; Y83.5 Amputation of limb(s) as the cause of abnormal reaction of the patient, or of later complication, without mention of misadventure at the time of the procedure

== ENCOUNTER 2016-11-14 10:06 | Outpatient (CLI) | payer MEDICAID ==
[2016-11-14] MEDS ORDERED: XYLOCAINE TOPICAL 4% TP ONE ×2 (10:28→10:53)
== END 2016-11-14 10:07 | disposition home or self-care (01) ==
LOC: WOUND 10:06
PROVIDERS: ATTEND Surgery
DX: T87.89 Other complications of amputation stump (principal); E11.621 Type 2 diabetes mellitus with foot ulcer; L97.523 Non-pressure chronic ulcer of other part of left foot with necrosis of muscle; L97.412 Non-pressure chronic ulcer of right heel and midfoot with fat layer exposed; E11.40 Type 2 diabetes mellitus with diabetic neuropathy, unspecified; E11.69 Type 2 diabetes mellitus with other specified complication; M86.172 Other acute osteomyelitis, left ankle and foot; K21.9 Gastro-esophageal reflux disease without esophagitis; M19.90 Unspecified osteoarthritis, unspecified site; I10 Essential (primary) hypertension; F17.200 Nicotine dependence, unspecified, uncomplicated; Y83.5 Amputation of limb(s) as the cause of abnormal reaction of the patient, or of later complication, without mention of misadventure at the time of the procedure

== ENCOUNTER 2016-11-28 11:35 | Outpatient (CLI) | payer MEDICAID ==
[2016-11-28] MEDS ORDERED: XYLOCAINE TOPICAL 4% TP ONE ×2 (12:28→12:33)
[2016-11-28] MEDS ORDERED: DAKIN'S FULL STRENGTH ONE (13:08)
== END 2016-11-28 11:36 | disposition home or self-care (01) ==
LOC: WOUND 11:35
PROVIDERS: ATTEND Surgery
DX: T87.89 Other complications of amputation stump (principal); E11.621 Type 2 diabetes mellitus with foot ulcer; L97.521 Non-pressure chronic ulcer of other part of left foot limited to breakdown of skin; L97.411 Non-pressure chronic ulcer of right heel and midfoot limited to breakdown of skin; E11.40 Type 2 diabetes mellitus with diabetic neuropathy, unspecified; K21.9 Gastro-esophageal reflux disease without esophagitis; I10 Essential (primary) hypertension; M19.90 Unspecified osteoarthritis, unspecified site; F17.200 Nicotine dependence, unspecified, uncomplicated; Y83.5 Amputation of limb(s) as the cause of abnormal reaction of the patient, or of later complication, without mention of misadventure at the time of the procedure

== ENCOUNTER 2016-12-01 12:51 | Outpatient (CLI) | payer MEDICAID ==
--- NOTE | 2016-12-01 13:55 | XRay Report ---
Right calcaneum 2 views: History: Diabetes right heel ulcer. Findings: There is soft tissue ulceration noted at the posterior inferior aspect of calcaneum. No lytic or blastic lesion or osteopenia in the adjacent calcaneum. Spur identified the posterior superior inferior calcaneum. Impression: Soft tissue abnormality identified at the posterior inferior aspect of calcaneum suggestive of ulceration/cellulitis.
== END 2016-12-01 12:52 | disposition home or self-care (01) ==
LOC: XRAY 12:51
PROVIDERS: ATTEND Surgery
DX: E11.621 Type 2 diabetes mellitus with foot ulcer (principal); L97.519 Non-pressure chronic ulcer of other part of right foot with unspecified severity; L97.529 Non-pressure chronic ulcer of other part of left foot with unspecified severity
CPT/HCPCS: 36415; 83036

== ENCOUNTER 2016-12-05 11:54 | Outpatient (CLI) | payer MEDICAID ==
[2016-12-05] MEDS ORDERED: XYLOCAINE TOPICAL 4% TP ONE ×2 (13:18→13:41)
== END 2016-12-05 11:55 | disposition home or self-care (01) ==
LOC: WOUND 11:54
PROVIDERS: ATTEND Surgery
DX: E11.621 Type 2 diabetes mellitus with foot ulcer (principal); L97.411 Non-pressure chronic ulcer of right heel and midfoot limited to breakdown of skin; L97.523 Non-pressure chronic ulcer of other part of left foot with necrosis of muscle; L89.613 Pressure ulcer of right heel, stage 3; E11.40 Type 2 diabetes mellitus with diabetic neuropathy, unspecified; I10 Essential (primary) hypertension; K21.9 Gastro-esophageal reflux disease without esophagitis; M19.90 Unspecified osteoarthritis, unspecified site; J45.909 Unspecified asthma, uncomplicated; E11.69 Type 2 diabetes mellitus with other specified complication; M86.172 Other acute osteomyelitis, left ankle and foot; F17.200 Nicotine dependence, unspecified, uncomplicated; Z89.422 Acquired absence of other left toe(s)

== ENCOUNTER 2017-11-27 14:20 | Emergency (ER) | payer MEDICAID ==
[2017-11-27] MEDS ORDERED: PERCOCET 5/325 PO PRN (15:13)
--- NOTE | 2017-11-27 15:20 | Emergency Department Report ---
ED General Adult HPI - General Chief complaint: Fall Stated complaint: PAIN HEAD NECK AND BACK Time Seen by Provider: 11/27/17 15:13 Source: patient, EMS Mode of arrival: Stretcher Limitations: Physical Limitation - History of Present Illness Initial comments: 42-year-old female with a history of diabetes, neuropathy, and a right BKA presents after eating brought to the emergency department after having a fall while in her primary care physician's office today. Patient states she was going to refill her medications and went to the bathroom. Patient states that he had no assistance in the bathroom and fell backwards and hit her head and her back region. Patient denies any LOC. Patient denies any extremity pain. Patient was brought by EMS for evaluation and treatment. Patient states that she's having pain in her neck and back which is a 10 out of 10. Patient denies any lacerations or abrasions. Patient denies any seizure activity. Patient denies any incontinence. Patient was brought in on a c-collar and backboard via EMS. - Related Data Previous Rx's Medication Instructions Recorded Last Taken Type Albuterol Sulfate [Proventil HFA] 1 - 2 puff IH Q6H PRN #1 hfa.aer.ad 09/20/13 09/09/16 Rx ALPRAZolam [Xanax TAB] 1 mg PO QHS PRN #30 tablet 01/02/17 Unknown Rx Bisacodyl [Dulcolax tab] 10 mg PO QDAY PRN #30 tablet 01/02/17 Unknown Rx Doxycycline [Vibramycin CAP] 100 mg PO Q12HR #6 capsule 01/02/17 Unknown Rx Insulin NPH/Regular [NovoLIN 70/30] 12 unit SUB-Q BIDDIAB 30 Days 01/02/17 Unknown Rx units Keppra TAB 750 mg PO BID #60 01/02/17 Unknown Rx Lisinopril [Zestril TAB] 20 mg PO QDAY #60 tablet 01/02/17 Unknown Rx Ondansetron [Zofran TAB] 4 mg PO Q8HR PRN #20 tablet 01/02/17 Unknown Rx Sevelamer Carbonate [Renvela] 1,600 mg PO TIDWM #180 tablet 01/02/17 Unknown Rx amLODIPine [Norvasc] 10 mg PO QDAY #30 tablet 01/02/17 Unknown Rx hydrALAZINE [Apresoline TAB] 25 mg PO Q8HR #90 tablet 01/02/17 Unknown Rx levoFLOXacin [Levaquin TAB] 750 mg PO QDAY #3 tablet 01/02/17 Unknown Rx oxyCODONE /ACETAMINOPHEN [Percocet 1 tab PO Q6H PRN #14 tablet 01/02/17 Unknown Rx 5/325 mg] Cyclobenzaprine [Flexeril] 10 mg PO TID PRN #21 tablet 11/27/17 Unknown Rx amLODIPine [Norvasc] 10 mg PO DAILY #30 tab 11/27/17 Unknown Rx oxyCODONE /ACETAMINOPHEN [Percocet 1 tab PO Q6HR PRN #14 tablet 11/27/17 Unknown Rx 5/325] Allergies Allergy/AdvReac Type Severity Reaction Status Date / Time eggplant Allergy Itching Uncoded 11/27/17 15:07 ED Review of Systems ROS: Stated complaint: PAIN HEAD NECK AND BACK Other details as noted in HPI Constitutional: denies: chills, fever Eyes: denies: eye pain, eye discharge, vision change ENT: denies: ear pain, throat pain Respiratory: denies: cough, shortness of breath, wheezing Cardiovascular: denies: chest pain, palpitations Endocrine: no symptoms reported Gastrointestinal: denies: abdominal pain, nausea, diarrhea Genitourinary: denies: urgency, dysuria, discharge Musculoskeletal: back pain. denies: joint swelling, arthralgia Skin: denies: rash, lesions Neurological: denies: headache, weakness, paresthesias Psychiatric: denies: anxiety, depression Hematological/Lymphatic: denies: easy bleeding, easy bruising ED Past Medical Hx - Past Medical History Previous Medical History?: Yes Hx Hypertension: Yes Hx Heart Attack/AMI: No Hx Congestive Heart Failure: No Hx Diabetes: Yes Hx Deep Vein Thrombosis: No Hx Pulmonary Embolism: No Hx GERD: Yes Hx Liver Disease: No Hx Renal Disease: No Hx Sickle Cell Disease: No Hx Arthritis: Yes Hx Seizures: Yes Hx Asthma: Yes Hx COPD: No Hx Tuberculosis: No Hx Dementia: No Hx HIV: No Additional medical history: neuropathy. fibromyalgia. dupuytren's - Surgical History Past Surgical History?: Yes Hx Coronary Stent: No Hx Pacemaker: No Hx Internal Defibrillator: No Additional Surgical History: heart surgery at . left hip surgery. bilateral feet and leg surgery age 5. left foot surgery, bone removed from toe. R BKA - Social History Smoking Status: Current Every Day Smoker Substance Use Type: None - Medications Home Medications: Home Medications Medication Instructions Recorded Confirmed Last Taken Type Albuterol Sulfate [Proventil HFA] 1 - 2 puff IH Q6H PRN #1 hfa.aer.ad 09/20/13 12/10/16 09/09/16 Rx ALPRAZolam [Xanax TAB] 1 mg PO QHS PRN #30 tablet 01/02/17 Unknown Rx Bisacodyl [Dulcolax tab] 10 mg PO QDAY PRN #30 tablet 01/02/17 Unknown Rx Doxycycline [Vibramycin CAP] 100 mg PO Q12HR #6 capsule 01/02/17 Unknown Rx Insulin NPH/Regular [NovoLIN 70/30] 12 unit SUB-Q BIDDIAB 30 Days 01/02/17 Unknown Rx units Keppra TAB 750 mg PO BID #60 01/02/17 Unknown Rx Lisinopril [Zestril TAB] 20 mg PO QDAY #60 tablet 01/02/17 Unknown Rx Ondansetron [Zofran TAB] 4 mg PO Q8HR PRN #20 tablet 01/02/17 Unknown Rx Sevelamer Carbonate [Renvela] 1,600 mg PO TIDWM #180 tablet 01/02/17 Unknown Rx amLODIPine [Norvasc] 10 mg PO QDAY #30 tablet 01/02/17 Unknown Rx hydrALAZINE [Apresoline TAB] 25 mg PO Q8HR #90 tablet 01/02/17 Unknown Rx levoFLOXacin [Levaquin TAB] 750 mg PO QDAY #3 tablet 01/02/17 Unknown Rx oxyCODONE /ACETAMINOPHEN [Percocet 1 tab PO Q6H PRN #14 tablet 01/02/17 Unknown Rx 5/325 mg] Cyclobenzaprine [Flexeril] 10 mg PO TID PRN #21 tablet 11/27/17 Unknown Rx amLODIPine [Norvasc] 10 mg PO DAILY #30 tab 11/27/17 Unknown Rx oxyCODONE /ACETAMINOPHEN [Percocet 1 tab PO Q6HR PRN #14 tablet 11/27/17 Unknown Rx 5/325] ED Physical Exam - General Limitations: Physical Limitation General appearance: alert, other (uncomfortable; awake) - Head Head exam: Present: atraumatic, normocephalic - Eye Eye exam: Present: normal appearance - ENT ENT exam: Present: mucous membranes dry - Neck Neck exam: Present: normal inspection, tenderness (tender in C5 region), other ( patient in C Collar) - Respiratory Respiratory exam: Present: normal lung sounds bilaterally. Absent: respiratory distress - Cardiovascular Cardiovascular Exam: Present: regular rate, normal rhythm. Absent: systolic murmur, diastolic murmur, rubs, gallop - GI/Abdominal GI/Abdominal exam: Present: soft, normal bowel sounds - Extremities Exam Extremities exam: Present: other (patient has BKA present) - Back Exam Back exam: Present: normal inspection, vertebral tenderness (tender in L4 and T10 region with no stepoff deformity) - Neurological Exam Neurological exam: Present: alert, oriented X3 - Psychiatric Psychiatric exam: Present: normal affect, normal mood - Skin Skin exam: Present: warm, dry, intact, normal color. Absent: rash ED Course Vital Signs 11/27/17 11/27/17 11/27/17 15:02 15:45 17:15 Temperature 98 F Pulse Rate 87 Respiratory 16 16 16 Rate Blood Pressure 207/121 183/127 Blood Pressure [Right] O2 Sat by Pulse 100 98 Oximetry 11/27/17 11/27/17 11/27/17 17:45 18:15 18:20 Temperature Pulse Rate Respiratory 16 16 Rate Blood Pressure 206/133 Blood Pressure 210/132 [Right] O2 Sat by Pulse 98 Oximetry 11/27/17 19:02 Temperature Pulse Rate Respiratory 16 Rate Blood Pressure Blood Pressure [Right] O2 Sat by Pulse Oximetry ED Medical Decision Making - Radiology Data Radiology results: image reviewed - Medical Decision Making She received Percocet therapy which helped to improve her pain. Patient has a CT which shows no acute pathology and radiologic images of her thoracic, cervical and lumbar spine region show no evidence of any acute pathology either. Patient was given clonidine as well as by mouth labetalol and her blood pressure improved. Patient also received a dose of IM morphine which helped improve her pain. Patient to be discharged to follow-up with PCP we'll give Percocet as well as Flexeril therapy upon discharge as well as add Norvasc 10 mg po qdaily to her antihypertensive regimen. - Differential Diagnosis Fracture; Contusion; Dislocation; Critical care attestation.: If time is entered above; I have spent that time in minutes in the direct care of this critically ill patient, excluding procedure time. ED Disposition Clinical Impression: Fall, Back pain, Acute cervical myofascial strain, Acute lumbar myofascial strain Disposition: TO HOME OR SELFCARE Is pt being admited?: No Condition: Stable Prescriptions: amLODIPine [Norvasc] 10 mg PO DAILY #30 tab Cyclobenzaprine [Flexeril] 10 mg PO TID PRN #21 tablet PRN Reason: Muscle Spasm oxyCODONE /ACETAMINOPHEN [Percocet 5/325] 1 tab PO Q6HR PRN #14 tablet PRN Reason: Pain Referrals: PRIMARY CARE, [Primary Care Provider] - 3-5 Days Time of Disposition: 19:32
[2017-11-27] MEDS ORDERED: CATAPRES PO ONE (15:22)
--- NOTE | 2017-11-27 15:48 | Cat Scan Report ---
CT HEAD WITHOUT CONTRAST: HISTORY: Blunt head trauma. TECHNIQUE: Sequential 2.5mm CT images. COMPARISON: 03/20/16. FINDINGS: Cerebral Parenchyma: Within normal limits. Cerebellum: Within normal limits. Brainstem: Within normal limits. Ventricles: Normal. Sella: Normal. Extra-axial spaces: Normal. Basal Cisterns: Normal. Intracranial Hemorrhage: None. Midline Shift: None. Calvarium: Normal. Sinuses: Normal. Mastoid Air Cells: Normal. Visualized Orbits: Normal. IMPRESSION: Cranial CT scan within normal limits.
[2017-11-27] MEDS ORDERED: NORMODYNE PO ONE (17:58)
--- NOTE | 2017-11-27 17:59 | XRay Report ---
FINAL REPORT EXAM: XR SPINE LUMBOSACRAL 2-3V HISTORY: back pain TECHNIQUE: Frontal and lateral views lumbar spine and coned-down lateral view lumbosacral junction Comparison: CT pelvis dated September 14, 2013 and x-ray thoracic spine also performed today FINDINGS: Bony alignment is normal. The vertebral heights are maintained. There is slight loss of height of the L5-S1 disc. There is no evidence of fracture or subluxation. The paraspinous soft tissues are unremarkable. IMPRESSION: 1. Evidence of degenerative disc change L5-S1 level. 2. No plain film evidence of fracture or subluxation in the lumbar spine. However, lumbar spine fractures can be missed with plain film imaging. If there is a clinical concern for fracture, CT imaging would be helpful.
--- NOTE | 2017-11-27 18:04 | XRay Report ---
FINAL REPORT EXAM: XR SPINE CERVICAL 2-3V HISTORY: neck pain TECHNIQUE: Frontal, lateral, cross-table lateral, swimmer's and odontoid views of the cervical spine. FINDINGS: Visualization detail of the lower cervical spine on the lateral views is limited by overlapping structures. Bony alignment is normal. The vertebral height appear to be maintained. The disc spaces appear to be maintained. There is no plain film evidence of fracture or subluxation. The paraspinous soft tissues are unremarkable. IMPRESSION: 1. Evaluation of the lower cervical spine on the lateral views is significantly limited by overlapping structures. Abnormality in this region cannot entirely be excluded. 2. No evidence of subluxation and no definite evidence of fracture. However, cervical spine fractures can be missed with plain film imaging. If there is a clinical concern for fracture, CT would be helpful.
--- NOTE | 2017-11-27 18:12 | XRay Report ---
FINAL REPORT EXAM: XR SPINE THORACIC 2V HISTORY: back apin TECHNIQUE: Frontal and lateral views thoracic spine Comparison: X-ray cervical spine and lumbar spine also performed today FINDINGS: Bony alignment is normal. The vertebral heights are maintained. There ossification of the anterior longitudinal ligament and enthesophyte formation at multiple levels in the mid and lower thoracic spine. There is no evidence of fracture or subluxation. The paraspinous soft tissues are unremarkable. IMPRESSION: 1. Findings suggestive of DISH in the mid and lower thoracic spine. 2. No evidence of fracture or subluxation. If there is a clinical concern for fracture, CT imaging may be helpful.
[2017-11-27] MEDS ORDERED: MORPHINE IM ONE (18:37)
[2017-11-27] MEDS ORDERED: ZOFRAN IM ONE (18:38)
[2017-11-27] MEDS ORDERED: ZOFRAN PO STA (18:41)
[2017-11-27 20:22] VITALS: BP 130/91
== END 2017-11-27 20:21 | disposition home or self-care (01) ==
LOC: ED 14:20
DX: S16.1XXA Strain of muscle, fascia and tendon at neck level, initial encounter (principal); S39.012A Strain of muscle, fascia and tendon of lower back, initial encounter; E11.40 Type 2 diabetes mellitus with diabetic neuropathy, unspecified; I10 Essential (primary) hypertension; E11.9 Type 2 diabetes mellitus without complications; K21.9 Gastro-esophageal reflux disease without esophagitis; M19.90 Unspecified osteoarthritis, unspecified site; J45.909 Unspecified asthma, uncomplicated; M79.7 Fibromyalgia; Z89.511 Acquired absence of right leg below knee; Z91.012 Allergy to eggs; F17.200 Nicotine dependence, unspecified, uncomplicated; Z79.4 Long term (current) use of insulin; W18.12XA Fall from or off toilet with subsequent striking against object, initial encounter; Y93.89 Activity, other specified; Y92.091 Bathroom in other non-institutional residence as the place of occurrence of the external cause; Y99.8 Other external cause status
CPT/HCPCS: 70450; 72040; 72070; 72100; 96372; 99284; J2270; J2405; Q0162

== ENCOUNTER 2018-04-29 20:36 | Inpatient (IN) | payer MEDICAID ==
[2018-04-29] MEDS ORDERED: ZOFRAN IV ONE (20:56)
[2018-04-29] MEDS ORDERED: MORPHINE IV ONE (20:56)
[2018-04-29] MEDS ORDERED: NACL 0.9% 1000 ML 1,000 ML IV ONE (20:56)
--- NOTE | 2018-04-29 21:06 | Emergency Department Report ---
HPI - General Chief Complaint: Abdominal Pain Time Seen by Provider: 04/29/18 20:43 - HPI HPI: 43-year-old female presents to the emergency department via EMS from home with complaint of some right-sided abdominal pain, right lower rib pain, shortness breath, that has been going on since she had a fall at home 2 days ago. The patient is in a wheelchair secondary to a right below-knee amputation. She says that she was trying to get into bed and fell between the bed, the wheelchair, and therefore, with pressure on that right side. She had to get assistance to get up and into bed. Secondary to her current symptoms she has been having some difficulty doing her usual ADLs. She says that a friend tried to help clean her up today and says that she noticed some possible blood in the urine. She has a past medical history of diabetes, hypertension, seizures, kidney disease, previous osteomyelitis. She goes to [facility] for her primary care needs. She has not taken anything for her symptoms prior to presentation. ED Past Medical Hx - Past Medical History Hx Hypertension: Yes Hx Heart Attack/AMI: No Hx Congestive Heart Failure: No Hx Diabetes: Yes Hx Deep Vein Thrombosis: No Hx Pulmonary Embolism: No Hx GERD: Yes Hx Liver Disease: No Hx Renal Disease: No Hx Sickle Cell Disease: No Hx Arthritis: Yes Hx Seizures: Yes Hx Asthma: Yes Hx COPD: No Hx Tuberculosis: No Hx Dementia: No Hx HIV: No Additional medical history: neuropathy. fibromyalgia. dupuytren's - Surgical History Hx Coronary Stent: No Hx Pacemaker: No Hx Internal Defibrillator: No Additional Surgical History: heart surgery at . left hip surgery. bilateral feet and leg surgery age 5. left foot surgery, bone removed from toe. R BKA - Social History Smoking Status: Current Every Day Smoker Substance Use Type: None - Medications Home Medications: Home Medications Medication Instructions Recorded Confirmed Last Taken Type amLODIPine [Norvasc] 10 mg PO DAILY #30 tab 11/27/17 04/30/18 Unknown Rx ALBUTEROL NEB's [Proventil] 2.5 mg IH TID PRN 04/30/18 04/30/18 Unknown History Albuterol Sulfate [Proventil Hfa] 1 puff IH Q8H 04/30/18 04/30/18 Unknown History AtorvaSTATin [Lipitor] 40 mg PO QHS 04/30/18 04/30/18 Unknown History Hydralazine HCl 50 mg PO TID 04/30/18 04/30/18 Unknown History Insulin Glargine [Lantus] 25 units SUB-Q QHS 04/30/18 04/30/18 Unknown History Insulin Lispro Prot/Lispro 25 units SUB-Q HS 04/30/18 04/30/18 Unknown History [HumaLOG MIX 75/25] Insulin Lispro Protamin/Lispro 30 units SUB-Q QAM 04/30/18 04/30/18 Unknown History [Humalog Mix 75-25 Vial] Losartan [Cozaar] 100 mg PO QDAY 04/30/18 04/30/18 Unknown History Metoprolol Tartrate 25 mg PO BID 04/30/18 04/30/18 Unknown History ED Review of Systems ROS: Stated complaint: RIGHT FLANK PAIN Other details as noted in HPI Comment: All other systems reviewed and negative Constitutional: denies: chills, fever Eyes: denies: eye pain, vision change ENT: denies: ear pain, throat pain Respiratory: shortness of breath. denies: cough Cardiovascular: denies: palpitations, edema Gastrointestinal: abdominal pain, nausea, vomiting Genitourinary: denies: dysuria, discharge Musculoskeletal: denies: back pain, arthralgia Skin: denies: rash, lesions Neurological: denies: headache, weakness Physical Exam - Physical Exam Vital Signs: Vital Signs 04/29/18 20:47 Temperature 98.8 F Pulse Rate 115 H Blood Pressure 151/103 O2 Sat by Pulse 115 H Oximetry Physical Exam: GENERAL: The patient is well-developed well-nourished. HEENT: Normocephalic. Atraumatic. Patient has moist mucous membranes. EYES: Extraocular motions are intact. Pupils are equal and reactive to light bilaterally. NECK: Supple. Trachea is midline. CHEST/LUNGS: Clear to auscultation. There is no respiratory distress noted. There is some reproducible tenderness to palpation of the right lateral lower chest and rib cage HEART/CARDIOVASCULAR: Regular. There is mild tachycardia. There is no obvious murmur. ABDOMEN: Abdomen is soft. There is tenderness to palpation along the right side of the abdomen. No guarding. Patient has normal bowel sounds. There is no abdominal distention. SKIN: Skin is warm and dry. Patient has a diabetic ulcer to the distal left third toe. NEURO: The patient is awake, alert, and oriented. The patient is cooperative. The patient has no focal neurologic deficits. The patient has normal speech. MUSCULOSKELETAL: There is no tenderness or acute deformity. Chronic right BKA. ED Course Vital Signs 04/29/18 20:47 Temperature 98.8 F Pulse Rate 115 H Blood Pressure 151/103 O2 Sat by Pulse 115 H Oximetry ED Medical Decision Making - Lab Data Result diagrams: 05/02/18 05:43 05/02/18 05:43 - EKG Data -: EKG Interpreted by Me EKG shows normal: sinus rhythm, axis, intervals, QRS complexes, ST-T waves Rate: tachycardia (112 bpm) - EKG Data When compared to previous EKG there are: no significant change Interpretation: unchanged when compared t (08/15/14) - Radiology Data Radiology results: report reviewed, image reviewed interpreted by me: Chest x-ray does not show any pneumothorax, pleural effusion, pneumonia or obvious focal consolidation. PROCEDURE: US OB TRANSVAGINAL TECHNIQUE: Real-time transvaginal sonography of the uterus, placenta, amniotic fluid, adnexa, and fetus was performed with image documentation. Measurements were obtained to determine age/size. M-mode Doppler was used to document heartbeat. CPT 37453 HISTORY: pelvic pain, COMPARISON: No prior studies are available for comparison. FINDINGS: No intrauterine or ectopic is identified. There is fluid in the endometrial cavity. There is no myometrial mass. Ovaries are not identified. There is no free pelvic fluid. IMPRESSION: There is no evidence of intrauterine or ectopic . Transcribed By: CO Dictated By: KEELY BAUMAN MD Electronically Authenticated By: KEELY BAUMAN MD Signed Date/Time: 04/30/18 5226 PROCEDURE: CT ABDOMEN PELVIS WO CON TECHNIQUE: Computerized axial tomography of the abdomen and pelvis was performed without intravenous contrast. This study is performed without intravascular contrast ma terial and its sensitivity for abdominal and pelvic pathology, including neoplasms, inflammation, abscess, free fluid, thrombosis, arterial dissection and infarction, is reduced compared with a contrast enhanced study. HISTORY: fall, abd pain COMPARISON: No prior studies are available for comparison. FINDINGS: Visualized lower thorax: No significant abnormality. Liver: The liver is enlarged. There is no obvious mass.. There is no evidence of laceration. Spleen: Normal size and attenuation. There is no splenic laceration. Gallbladder and biliary system: Normal. Pancreas: Normal. Adrenals: Normal. Kidneys: There are no kidney stones or ureteral stones. There is no hydrone phrosis.. GI tract: There is no bowel obstruction, colitis or enteritis. The appendix is normal. Lymph nodes and mesentery: Normal. Vasculature: Abdominal aorta is normal in caliber. There is mild calcified atherosclerosis.. Bladder: Urinary bladder wall is thickened. There is air in the bladder wall consistent with emphysematous cystitis. Clinical correlation suggested.. Reproductive organs: Normal. Peritoneum: There is no hemoperitoneum, ascites or free air.. Musculoskeletal structures: There is no acute bony abnormality.. Other: None. IMPRESSION: The liver is enlarged. There is no obvious mass.. There is no evidence of laceration. There is no splenic laceration. There are no kidney stones or ureteral stones. There is no hydronephrosis.. There is no bowel obstruction, colitis or enteritis. The appendix is normal. Abdominal aorta is normal in caliber. There is mild calcified atherosclerosis.. Urinary bladder wall is thickened. There is air in the bladder wall consistent with emphysematous cystitis. Clinical correlation suggested.. There is no hemoperitoneum, ascites or free air.. There is no acute bony abnormality.. . Transcribed By: CO Dictated By: KEELY BAUMAN MD Electronically Authenticated By: KEELY BAUMAN MD Signed Date/Time: 04/30/18 0647 - Medical Decision Making Patient presents to the emergency department with 2 day history of some right- sided lower chest and abdominal pain. The patient had a fall from her wheelchair and was wedged between the chair in her bed and since that time his been having discomfort in worsening difficulty doing her ADLs. She has chronic right below-knee amputation. At first the patient's workup came back positive for urine test. However the patient says that she has not been intimate with her in a few months and has not been with anyone else. A quantitative test was done and came back with a normal level of about 6. Just to be certain, an ultrasound was done transvaginally that does not show any sign of intrauterine or extrauterine . An abdominal ultrasound was also done that did not show any acute process including no signs of any blood or fluid in the abdomen. A CT scan was done of the abdomen and pelvis and also did not show any acute process. Patient's labs show some mild anemia, some mild renal insufficiency that is actually better than her previous visit and an elevated troponin level. Patient will be admitted to the hospital for continued pain, elevated troponin level, further evaluation and treatment. She was accepted for admission by the hospitalist service. - Differential Diagnosis NSTEMI, Rib Fracture, Dysrythmia, abdominal contusion Critical Care Time: No Critical care attestation.: If time is entered above; I have spent that time in minutes in the direct care of this critically ill patient, excluding procedure time. ED Disposition Clinical Impression: Elevated troponin, Right-sided chest pain CKD (chronic kidney disease) Qualifiers: Chronic kidney disease stage: unspecified stage Qualified Code(s): N18.9 - Chronic kidney disease, unspecified Abdominal pain Qualifiers: Abdominal location: unspecified location Qualified Code(s): R10.9 - Unspecified abdominal pain Disposition: 09 OP ADMIT IP TO THIS HOSP Is pt being admited?: Yes Condition: Serious
[2018-04-29 21:41] LABS: Basophils # (Auto) 0.1 K/mm3 (0.0-0.1); Basophils % (Auto) 0.5 % (0.0-1.8); Eosinophils # (Auto) 0.2 K/mm3 (0.0-0.4); Eosinophils % (Auto) 1.2 % (0.0-4.3); Hematocrit 34.4 % (30.3-42.9); Hemoglobin 11.2 gm/dl (10.1-14.3); Lymphocytes # (Auto) 1.1 K/mm3 (1.2-5.4); Lymphocytes % (Auto) 8.3 % (13.4-35.0); Mean Corpuscular HGB Conc 32 % (30-34); Mean Corpuscular Volume 87 fl (79-97); Monocytes # (Auto) 0.7 K/mm3 (0.0-0.8); Monocytes % (Auto) 4.8 % (0.0-7.3); Platelet Count 296 K/mm3 (140-440); Red Blood Count 3.94 M/mm3 (3.65-5.03); Red Cell Distribution Width 17.5 % (13.2-15.2)
[2018-04-29 22:11] LABS: Albumin 2.8 g/dL (3.9-5); BUN/Creatinine Ratio 13; Bilirubin,Direct 0.2 mg/dL (0-0.2); Blood Urea Nitrogen 20 mg/dL (7-17); Calcium 8.6 mg/dL (8.4-10.2); Hemolysis Index 28
[2018-04-29 22:19] LABS: Alanine Aminotransferase < 5 units/L (7-56)
[2018-04-29 22:35] LABS: Chol/HDL Ratio 2.39 %
--- NOTE | 2018-04-30 03:28 | XRay Report ---
FINAL REPORT PROCEDURE: XR CHEST ROUTINE 2V TECHNIQUE: PA and lateral chest radiographs were obtained. CPT 00346 HISTORY: right sided rib pain COMPARISON: No prior studies are available for comparison. FINDINGS: Heart: Heart is enlarged. Mediastinum/Vessels: Normal. Lungs/Pleural space: Lungs are expanded. There are mild fibrotic changes. There are no infiltrates, e ffusions or pneumothoraces.. Bony thorax: There are old left-sided rib fractures. There is no acute bony abnormality.. Other: IMPRESSION: Heart is enlarged. Lungs are expanded. There are mild fibrotic changes. There are no infiltrates, effusions or pneumotho races.. There are old left-sided rib fractures. There is no acute bony abnormality.. .
[2018-04-30] MEDS ORDERED: MORPHINE IV ONE (04:28)
[2018-04-30] MEDS ORDERED: NORMODYNE IV ONE (04:29)
--- NOTE | 2018-04-30 06:47 | Cat Scan Report ---
FINAL REPORT PROCEDURE: CT ABDOMEN PELVIS WO CON TECHNIQUE: Computerized axial tomography of the abdomen and pelvis was performed without intravenous contrast. This study is performed without intravascular contrast material and its sensitivity for ab dominal and pelvic pathology, including neoplasms, inflammation, abscess, free fluid, thrombosis, art erial dissection and infarction, is reduced compared with a contrast enhanced study. HISTORY: fall, abd pain COMPARISON: No prior studies are available for comparison. FINDINGS: Visualized lower thorax: No significant abnormality. Liver: The liver is enlarged. There is no obvious mass.. There is no evidence of laceration. Spleen: Normal size and attenuation. There is no splenic laceration. Gallbladder and biliary system: Normal. Pancreas: Normal. Adrenals: Normal. Kidneys: There are no kidney stones or ureteral stones. There is no hydronephrosis.. GI tract: There is no bowel obstruction, colitis or enteritis. The appendix is normal. Lymph nodes and mesentery: Normal. Vasculature: Abdominal aorta is normal in caliber. There is mild calcified atherosclerosis.. Bladder: Urinary bladder wall is thickened. There is air in the bladder wall consistent with emphysem atous cystitis. Clinical correlation suggested.. Reproductive organs: Normal. Peritoneum: There is no hemoperitoneum, ascites or free air.. Musculoskeletal structures: There is no acute bony abnormality.. Other: None. IMPRESSION: The liver is enlarged. There is no obvious mass.. There is no evidence of laceration. There is no splenic laceration. There are no kidney stones or ureteral stones. There is no hydronephrosis.. There is no bowel obstruction, colitis or enteritis. The appendix is normal. Abdominal aorta is normal in caliber. There is mild calcified atherosclerosis.. Urinary bladder wall is thickened. There is air in the bladder wall consistent with emphysematous cys titis. Clinical correlation suggested.. There is no hemoperitoneum, ascites or free air.. There is no acute bony abnormality.. .
[2018-04-30] MEDS ORDERED: NACL 0.9% 1000 ML 1,000 ML IV ONE (07:19)
[2018-04-30] MEDS ORDERED: BABY ASPIRIN PO ONE (07:21)
[2018-04-30 07:32] LABS: Bacteria,Urine 4+ /HPF (Negative); Bilirubin,Urine NEG (Negative); Blood,Urine SM (Negative); Color,Urine Amber (Yellow); Mucus,Urine FEW /HPF; Urobilinogen,Urine < 2.0 mg/dL (<2.0)
[2018-04-30 07:40] LABS: Protein,Urine >2000 mg dL mg/dL (Negative)
[2018-04-30 07:41] LABS: WBC,Urine > 182.0 /HPF (0.0-6.0)
--- NOTE | 2018-04-30 08:16 | Nuclear Medicine Report ---
LUNG SCAN, VENTILATION AND PERFUSION: History: Chest pain, elevated d-dimer. Technique: 5mci of Tc99m MAA was infused for the perfusion images. 15mci XE 133 gas was inhaled for the ventilatory images. Correlation is made with a chest x-ray dated 04/30/18. Findings: Inhalation of Xenon gas demonstrates a normal distribution of the activity throughout both lungs. The wash out phases show mild retention of the radiotracer bilaterally suggesting mild obstructive pulmonary disease. After injection of Technetium 99m macroaggregated albumin gamma camera imaging of the lungs in multiple projections demonstrates normal pulmonary contours with a homogeneous distribution of activity. No focal areas of perfusion deficiency are identified. IMPRESSION: Low probability for pulmonary embolus.
--- NOTE | 2018-04-30 08:48 | History and Physical Report ---
History of Present Illness Date of examination: 04/30/18 Date of admission: 04/30/18 Chief complaint: Abdominal pain/right sided chest pain History of present illness: Very pleasant 43-year-old female presents to the emergency room with complaint of right-sided abdominal pain, and worsening shortness breath, intermittent for the last 2-3 days patient also complains of some difficulty urinating and some hematuria . Patient has history of diabetes mellitus hypertension peripheral vascular disease status post BKA and history of osteomyelitis in the past Patient also complains of some vague chest discomfort Denies nausea vomiting, denies headache dizziness Initial workup is consistent with elevated d-dimer, VQ scan negative for pain Patient also complains of right-sided chest pain, positive cardiac troponins, cardiology was consulted by ED Patient also complains of some rib cage pain, chest x-ray revealed old left sided fractures no new abnormality noted Past History Past Medical History: diabetes, hypertension, hyperlipidemia Past Surgical History: Other (right BKA) Social history: lives with family, smoking, full code. denies: alcohol abuse, prescription drug abuse Family history: hypertension Medications and Allergies Allergies Allergy/AdvReac Type Severity Reaction Status Date / Time codeine AdvReac Hives Verified 04/29/18 21:53 eggplant Allergy Itching Uncoded 11/27/17 15:07 Home Medications Medication Instructions Recorded Confirmed Last Taken Type amLODIPine [Norvasc] 10 mg PO DAILY #30 tab 11/27/17 04/30/18 Unknown Rx ALBUTEROL NEB's [Proventil] 2.5 mg IH TID PRN 04/30/18 04/30/18 Unknown History Albuterol Sulfate [Proventil Hfa] 1 puff IH Q8H 04/30/18 04/30/18 Unknown History AtorvaSTATin [Lipitor] 40 mg PO QHS 04/30/18 04/30/18 Unknown History Hydralazine HCl 50 mg PO TID 04/30/18 04/30/18 Unknown History Insulin Glargine [Lantus] 25 units SUB-Q QHS 04/30/18 04/30/18 Unknown History Insulin Lispro Prot/Lispro 25 units SUB-Q HS 04/30/18 04/30/18 Unknown History [HumaLOG MIX 75/25] Insulin Lispro Protamin/Lispro 30 units SUB-Q QAM 04/30/18 04/30/18 Unknown History [Humalog Mix 75-25 Vial] Losartan [Cozaar] 100 mg PO QDAY 04/30/18 04/30/18 Unknown History Metoprolol Tartrate 25 mg PO BID 04/30/18 04/30/18 Unknown History Review of Systems Constitutional: no weight loss, no weight gain, no fever, no chills Ears, nose, mouth and throat: no nasal congestion, no nasal discharge Cardiovascular: chest pain, no orthopnea, no palpitations, no syncope, no lightheadedness Respiratory: no cough with sputum, no shortness of breath Gastrointestinal: abdominal pain, nausea, vomiting, no diarrhea, no constipation Genitourinary Female: flank pain, no dysuria Musculoskeletal: no myalgias, no arthritis Integumentary: no rash, no lesions Neurological: weakness, no numbness, no tingling, no seizures Psychiatric: no anxiety, no depression Endocrine: no cold intolerance, no heat intolerance, no polydipsia, no polyuria Hematologic/Lymphatic: no easy bruising, no easy bleeding Allergic/Immunologic: no urticaria, no allergic rhinitis Exam - Constitutional Vitals: Temp Pulse Resp BP Pulse Ox 98.8 F 85 19 88/52 95 04/29/18 20:47 04/30/18 06:00 04/30/18 06:00 04/30/18 06:00 04/30/18 00:00 General appearance: Present: no acute distress, well-nourished - EENT Eyes: Present: PERRL, EOM intact - Neck Neck: Present: supple, normal ROM - Respiratory Respiratory effort: normal Respiratory: bilateral: diminished, negative: rales, rhonchi, wheezing - Cardiovascular Rhythm: regular Heart Sounds: Present: S1 & S2 - Extremities Extremities: abnormal (right BKA) Extremity abnormal: other (left foot s/p amputation toe, wound infection ) - Abdominal General gastrointestinal: Present: soft, non-tender, non-distended, normal bowel sounds - Integumentary Integumentary: Present: clear, warm - Musculoskeletal Musculoskeletal: strength equal bilaterally - Psychiatric Psychiatric: appropriate mood/affect, cooperative - Neurologic Neurologic: moves all extremities Results - Labs CBC & Chem 7: 04/29/18 19:35 04/30/18 13:06 Labs: Abnormal lab results 04/29/18 04/29/18 04/29/18 Range/Units 19:35 19:35 19:35 WBC 13.8 H (4.5-11.0) K/mm3 RDW 17.5 H (13.2-15.2) % Lymph % (Auto) 8.3 L (13.4-35.0) % Lymph # 1.1 L (1.2-5.4) K/mm3 Seg Neutrophils % 85.2 H (40.0-70.0) % Seg Neutrophils # 11.8 H (1.8-7.7) K/mm3 D-Dimer (0-234) ng/mlDDU Carbon Dioxide 21 L (22-30) mmol/L BUN 20 H (7-17) mg/dL Creatinine 1.6 H (0.7-1.2) mg/dL Glucose 147 H (65-100) mg/dL POC Glucose (70-105) ALT < 5 L (7-56) units/L Troponin T 0.140 H* (0.00-0.029) ng/mL Albumin 2.8 L (3.9-5) g/dL Lipase 6 L (13-60) units/L HCG, Quant (0-4) mIU/mL Urine WBC (Auto) (0.0-6.0) /HPF 04/29/18 04/29/18 04/30/18 Range/Units 19:35 22:38 03:57 WBC (4.5-11.0) K/mm3 RDW (13.2-15.2) % Lymph % (Auto) (13.4-35.0) % Lymph # (1.2-5.4) K/mm3 Seg Neutrophils % (40.0-70.0) % Seg Neutrophils # (1.8-7.7) K/mm3 D-Dimer (0-234) ng/mlDDU Carbon Dioxide (22-30) mmol/L BUN (7-17) mg/dL Creatinine (0.7-1.2) mg/dL Glucose (65-100) mg/dL POC Glucose 136 H (70-105) ALT (7-56) units/L Troponin T 0.083 H D (0.00-0.029) ng/mL Albumin (3.9-5) g/dL Lipase (13-60) units/L HCG, Quant 6.94 H (0-4) mIU/mL Urine WBC (Auto) (0.0-6.0) /HPF 04/30/18 04/30/18 Range/Units 04:25 07:15 WBC (4.5-11.0) K/mm3 RDW (13.2-15.2) % Lymph % (Auto) (13.4-35.0) % Lymph # (1.2-5.4) K/mm3 Seg Neutrophils % (40.0-70.0) % Seg Neutrophils # (1.8-7.7) K/mm3 D-Dimer 3598.04 H (0-234) ng/mlDDU Carbon Dioxide (22-30) mmol/L BUN (7-17) mg/dL Creatinine (0.7-1.2) mg/dL Glucose (65-100) mg/dL POC Glucose (70-105) ALT (7-56) units/L Troponin T (0.00-0.029) ng/mL Albumin (3.9-5) g/dL Lipase (13-60) units/L HCG, Quant (0-4) mIU/mL Urine WBC (Auto) > 182.0 H (0.0-6.0) /HPF Assessment and Plan --Non-ST elevation FL; atypical chest pain positive cardiac enzymes, aspirin and beta blockers and erasmo inhibitors nitrates statins Echocardiogram for LV function ejection fraction, cardiology already consulted by ED Procedures cardiac enzymes and EKG --Elevated D dimers; negative PE, evaluate for lower extremity DVT --Acute kidney injury; TOMMIE; Vasomotor nephropathy Gentle hydration, monitor renal function, avoid nephrotoxins --2 diabetes mellitus; moderate control, Accu-Chek sliding scale coverage and ADA diet and long-acting insulin , check A1c, diabetic education if needed --Diabetic neuropathy; continue gabapentin -- Lt Diabetic foot ulcer; wound care, empiric antibiotics, supportive care --Hypertension; resume home antihypertensives and when necessary medications --DVT prophylaxis; Lovenox Closely monitor the patient and adjust management as needed Plan of care reviewed with the patient and her nurse
[2018-04-30] MEDS: HumaLOG SUB-Q SCH ×3 (11:46→21:33)
--- NOTE | 2018-04-30 11:58 | Ultrasound Report ---
FINAL REPORT PROCEDURE: US OB TRANSVAGINAL TECHNIQUE: Real-time transvaginal sonography of the uterus, placenta, amniotic fluid, adnexa, and fe tus was performed with image documentation. Measurements were obtained to determine age/size. M -mode Doppler was used to document heartbeat. CPT 26729 HISTORY: pelvic pain, COMPARISON: No prior studies are available for comparison. FINDINGS: No intrauterine or ectopic is identified. There is fluid in the endometrial cavity. There is no myometrial mass. Ovaries are not identified. There is no free pelvic fluid. IMPRESSION: There is no evidence of intrauterine or ectopic .
--- NOTE | 2018-04-30 11:58 | Ultrasound Report ---
FINAL REPORT PROCEDURE: US ABDOMEN COMPLETE TECHNIQUE: Real-time sonography in multiple planes of the abdomen was performed with image documenta tion. CPT 74895 HISTORY: abd pain COMPARISON: No prior studies are available for comparison. FINDINGS: Liver: Normal size and echotexture with no evidence of cystic or solid mass lesions. Gallbladder: Fluid filled. No gallstones, wall thickening, pericholecystic fluid, or sonographic Murp hy's sign. Intrahepatic bile ducts: Normal caliber . Extrahepatic bile ducts: Normal caliber. Pancreas: Normal as visualized with suboptimal depiction of the pancreatic tail. Aorta: Visualized portions appear normal. IVC: Visualized portions appear normal. RIGHT kidney: Normal echotexture. No focal renal mass, calculus, or hydronephrosis. Length: 11.3cm. LEFT kidney: Normal echotexture. No focal renal mass, calculus, or hydronephrosis . Length: 10.1cm. Spleen: Normal size and echotexture. No focal lesions. Intraperitoneal fluid: None . Other: None . IMPRESSION: There is no cholelithiasis, cholecystitis or biliary ductal dilatation..
--- NOTE | 2018-04-30 11:58 | Ultrasound Report ---
FINAL REPORT PROCEDURE: US OB < = 14 WEEKS FETUS TECHNIQUE: Real-time transabdominal sonography of the uterus, placenta, amniotic fluid, adnexa, and fetus was performed with image documentation. Measurements were obtained to determine age/size. M-mode Doppler was used to document heartbeat. HISTORY: pelvic pain, COMPARISON: No prior studies are available for comparison. FINDINGS: No intrauterine or ectopic is identified. There is fluid in the endometrial cavity. There is no myometrial mass. Ovaries are not identified. There is no free pelvic fluid. IMPRESSION: There is no evidence of intrauterine or ectopic .
--- NOTE | 2018-04-30 14:09 | Vascular Lab Report ---
FINAL REPORT EXAM: VL VENOUS DUPLEX LE BILAT HISTORY: elevated d dimers, r/o DVT TECHNIQUE: Grayscale and color and spectral Doppler ultrasound imaging of the bilateral lower extrem ities was performed for the purposes of assessing for deep venous thrombosis. PRIORS: None. FINDINGS: No evidence of deep venous thrombosis is seen within the common femoral through posterior tibial and peroneal veins. Normal compression and color flow is seen throughout the venous system of the bilater al lower extremities. Normal augmentation was seen. IMPRESSION: Negative for bilateral lower extremity deep venous thrombosis.
--- NOTE | 2018-04-30 14:10 | Consultation ---
History of Present Illness Consult date: 04/30/18 Requesting physician: KELLEY CASTRO Consult reason: elevated troponin History of present illness: The pt is a 43-year-old female with a past medical history of HTN, DM, seizures, previous osteomyelitis s/p RLE BKA and left toe amputations. She is previously unknown to our practice. She presented to the emergency department via EMS from home with complaint of some right-sided abdominal pain and right lower rib pain that has been going on since she had a fall at home 2 days ago. The patient is in a wheelchair secondary to a right below-knee amputation. She says that she was trying to get into bed and fell between the bed, the wheelchair, and was "stuck" inbetween the bed and wheelchair for approx 20 minutes with pressure on her right side. Since the fall, she has been experiencing right-sided rib pain, particularly with movement and deep inspiration. She denies any prior cardiac issues, including CAD, AMI or HF. Past History Past Medical History: diabetes, hypertension Past Surgical History: Other (right BKA) Social history: lives with family, smoking, full code. denies: alcohol abuse, prescription drug abuse Family history: hypertension Medications and Allergies Allergies Allergy/AdvReac Type Severity Reaction Status Date / Time codeine AdvReac Hives Verified 04/29/18 21:53 eggplant Allergy Itching Uncoded 11/27/17 15:07 Home Medications Medication Instructions Recorded Confirmed Last Taken Type amLODIPine [Norvasc] 10 mg PO DAILY #30 tab 11/27/17 04/30/18 Unknown Rx ALBUTEROL NEB's [Proventil] 2.5 mg IH TID PRN 04/30/18 04/30/18 Unknown History Albuterol Sulfate [Proventil Hfa] 1 puff IH Q8H 04/30/18 04/30/18 Unknown History AtorvaSTATin [Lipitor] 40 mg PO QHS 04/30/18 04/30/18 Unknown History Hydralazine HCl 50 mg PO TID 04/30/18 04/30/18 Unknown History Insulin Glargine [Lantus] 25 units SUB-Q QHS 04/30/18 04/30/18 Unknown History Insulin Lispro Prot/Lispro 25 units SUB-Q HS 04/30/18 04/30/18 Unknown History [HumaLOG MIX 75/25] Insulin Lispro Protamin/Lispro 30 units SUB-Q QAM 04/30/18 04/30/18 Unknown History [Humalog Mix 75-25 Vial] Losartan [Cozaar] 100 mg PO QDAY 04/30/18 04/30/18 Unknown History Metoprolol Tartrate 25 mg PO BID 04/30/18 04/30/18 Unknown History Active Meds: Active Medications Alprazolam (Xanax) 1 mg PO QHS PRN PRN Reason: Anxiety Hydralazine HCl (Apresoline) 25 mg PO Q8HR ELADIO Insulin Human Isoph/Insulin Regular (Humulin 70/30) 12 unit SUB-Q BIDDIAB ELADIO Insulin Human Lispro (Humalog) 0 unit SUB-Q ACHS ELADIO; Protocol Last Admin: 04/30/18 11:46 Dose: 2 unit Documented by: Levetiracetam (Keppra) 750 mg PO BID ELADIO Review of Systems Constitutional: no weight loss, no weight gain, no fever, no chills, no sweats Ears, nose, mouth and throat: no ear pain, no nose pain, no sinus pressure, no sinus pain Cardiovascular: no chest pain, no orthopnea, no palpitations, no rapid/irregular heart beat, no edema, no syncope, no lightheadedness, no shortness of breath, no dyspnea on exertion Respiratory: no cough, no shortness of breath, no dyspnea on exertion, no jefry estion, no wheezing, no pain on inspiration Gastrointestinal: no abdominal pain, no nausea, no vomiting, no diarrhea, no constipation, no change in bowel habits Genitourinary Female: no pelvic pain, no flank pain, no dysuria, no urinary frequency, no urgency Musculoskeletal: other (right rib pain), no neck stiffness, no neck pain, no shooting arm pain, no arm numbness/tingling, no low back pain, no shooting leg pain Integumentary: no rash, no pruritis, no redness, no sores, no wounds Neurological: no head injury, no paralysis, no weakness, no parathesias, no numbness, no tingling, no seizures, no syncope Psychiatric: no anxiety Endocrine: no cold intolerance, no heat intolerance Hematologic/Lymphatic: no easy bruising, no easy bleeding Allergic/Immunologic: no urticaria, no wheezing Physical Examination Vital Signs Temp Pulse BP Pulse Ox 98.8 F 115 H 151/103 115 H 04/29/18 20:47 04/29/18 20:47 04/29/18 20:47 04/29/18 20:47 General appearance: no acute distress HEENT: Positive: PERRL, Normocephaly, Mucus Membranes Moist Neck: Positive: neck supple, trachea midline Cardiac: Positive: Reg Rate and Rhythm, S1/S2 Lungs: Positive: clear to auscultation Neuro: Positive: Grossly Intact Abdomen: Positive: Soft. Negative: Tender Skin: Negative: Rash Musculoskeletal: No Pain Extremities: Absent: edema Results 04/29/18 19:35 04/30/18 13:06 Cardiac Enzymes 04/29/18 Range/Units 19:35 AST 9 (5-40) units/L Lipids 04/29/18 Range/Units 19:35 Triglycerides 99 (2-149) mg/dL Cholesterol 134 (50-199) mg/dL HDL Cholesterol 56 (40-59) mg/dL Cholesterol/HDL Ratio 2.39 % CBC 04/29/18 Range/Units 19:35 WBC 13.8 H (4.5-11.0) K/mm3 RBC 3.94 (3.65-5.03) M/mm3 Hgb 11.2 (10.1-14.3) gm/dl Hct 34.4 (30.3-42.9) % Plt Count 296 (140-440) K/mm3 Lymph # 1.1 L (1.2-5.4) K/mm3 [place] # 0.7 (0.0-0.8) K/mm3 Eos # 0.2 (0.0-0.4) K/mm3 Baso # 0.1 (0.0-0.1) K/mm3 Comprehensive Metabolic Panel 04/29/18 Range/Units 19:35 Sodium 142 (137-145) mmol/L Potassium 4.6 (3.6-5.0) mmol/L Chloride 106.4 (98-107) mmol/L Carbon Dioxide 21 L (22-30) mmol/L BUN 20 H (7-17) mg/dL Creatinine 1.6 H (0.7-1.2) mg/dL Glucose 147 H (65-100) mg/dL Calcium 8.6 (8.4-10.2) mg/dL Direct Bilirubin 0.2 (0-0.2) mg/dL Indirect Bilirubin 0.5 mg/dL AST 9 (5-40) units/L ALT < 5 L (7-56) units/L Alkaline Phosphatase 116 (35-129) units/L Total Protein 7.4 (6.3-8.2) g/dL Albumin 2.8 L (3.9-5) g/dL - Imaging and Cardiology Echo: report reviewed (12/2016: EF 50-55%, impaired relaxation) EKG: report reviewed, image reviewed EKG interpretations - Telemetry EKG Rhythm: Sinus Rhythm - EKG Sinus rhythms and dysrhythmias: sinus rhythm Assessment and Plan DDimer elevated - V/Q low prob for PE. Pt with c/o right-rib pain, likely musculoskeletal 2/2 recent mechanical fall. CXR with NAF. Troponin elevation currently nonspecific, likely 2/2 UTI, dehydration, TOMMIE. Cont to trend [place] and repeat EKG in AM. No plans for inpatient ischemic evaluation at this time. Pt reports h/o seizures (last seizure was 7 days ago) and has BLE amputations. She would be unable to complete treadmill stress test due to amputations and lexiscan should be used cautiously as it can lower seizure threshold. F/u echo. The patient has been seen in conjunction with Dr. Pritchard who agrees with the assessment and plan of care. - Patient Problems (1) Rib pain on right side Current Visit: Yes Status: Acute (2) Elevated troponin Current Visit: Yes Status: Acute (3) TOMMIE (acute kidney injury) Current Visit: No Status: Acute (4) UTI (urinary tract infection) Onset Date: 09/14/13 Current Visit: Yes Status: Acute (5) Seizure disorder Current Visit: Yes Status: Chronic (6) History of osteomyelitis Current Visit: Yes Status: Chronic (7) Diabetes Onset Date: 09/15/13 Current Visit: Yes Status: Chronic Qualifiers: Diabetes mellitus type: type 1 Diabetes mellitus complication status: with skin complications Diabetes mellitus complication detail: with foot ulcer Qualified Code(s): E10.621 - Type 1 diabetes mellitus with foot ulcer; L97.509 - Non-pressure chronic ulcer of other part of unspecified foot with unspecified severity (8) Hypertension Onset Date: 07/07/13 Current Visit: Yes Status: Chronic Qualifiers: Hypertension type: essential hypertension Qualified Code(s): I10 - Essential (primary) hypertension
[2018-04-30 14:20] LABS: Calcium 7.9 mg/dL (8.4-10.2)
[2018-04-30] MEDS: APRESOLINE PO SCH ×2 (15:39→21:32)
[2018-04-30] MEDS ORDERED: TYLENOL PO PRN (17:20)
[2018-04-30] MEDS: KEPPRA PO SCH (21:32)
[2018-04-30] MEDS: PERCOCET 5/325 PO PRN (21:32)
[2018-04-30] MEDS: XANAX PO PRN (21:32)
[2018-04-30] MEDS ORDERED: KEPPRA 750 MG PO SCH (22:00)
[2018-05-01] MEDS: APRESOLINE PO SCH ×3 (05:23→21:43)
[2018-05-01] MEDS: PERCOCET 5/325 PO PRN ×3 (05:23→21:42)
[2018-05-01 06:27] LABS: Basophils # (Auto) 0.1 K/mm3 (0.0-0.1); Basophils % (Auto) 0.9 % (0.0-1.8); Eosinophils # (Auto) 0.8 K/mm3 (0.0-0.4); Eosinophils % (Auto) 7.5 % (0.0-4.3); Hematocrit 29.3 % (30.3-42.9); Lymphocytes # (Auto) 1.5 K/mm3 (1.2-5.4); Mean Corpuscular HGB Conc 31 % (30-34); Mean Corpuscular Volume 89 fl (79-97); Monocytes # (Auto) 0.8 K/mm3 (0.0-0.8); Monocytes % (Auto) 7.4 % (0.0-7.3); Platelet Count 270 K/mm3 (140-440); Red Cell Distribution Width 17.4 % (13.2-15.2)
[2018-05-01] MEDS: HumaLOG SUB-Q SCH ×4 (07:30→21:44)
[2018-05-01 07:48] LABS: Calcium 7.7 mg/dL (8.4-10.2)
--- NOTE | 2018-05-01 08:41 | Progress Note ---
Assessment and Plan Assessment and plan: -- Lt Diabetic foot ulcer; wound care, empiric antibiotics, Surgical evaluation and recommendation noted and appreciated, possible Partial amputation tomorrow --Diabetic neuropathy; continue gabapentin --History of osteomyelitis of right ankle/status post right BKA in 2017 --2 diabetes mellitus; moderate control, Accu-Chek sliding scale coverage and ADA diet and long-acting insulin , check A1c, diabetic education if needed --Non-ST elevation ND; atypical chest pain positive cardiac enzymes, aspirin and beta blockers and erasmo inhibitors nitrates statins Echocardiogram for LV function ejection fraction, cardiology already consulted by ED Procedures cardiac enzymes and EKG --Elevated D dimers; negative PE, evaluate for lower extremity DVT --Acute kidney injury; TOMMIE; worsening renal function,Vasomotor nephropathy IV hydration monitor renal function, avoid nephrotoxins --Urinary tract infection; empiric antibiotics with Rocephin, follow cultures --Hypertension; resume home antihypertensives and when necessary medications --Obesity; BMI 34.4, advised weight reduction when medically stable --DVT prophylaxis; Lovenox --Physical therapy/occupational therapy Closely monitor the patient and adjust management as needed Plan of care reviewed with the patient and her nurse History Interval history: Patient seen and examined medical records from rebound Patient feels slightly better no new complaints Vital signs noted Hospitalist Physical - Constitutional Vitals: Temp Pulse Resp BP Pulse Ox 98.2 F 96 H 18 156/98 99 05/01/18 04:58 05/01/18 05:23 05/01/18 06:23 05/01/18 05:23 05/01/18 04:58 General appearance: Present: no acute distress, well-nourished - EENT Eyes: Present: PERRL, EOM intact - Neck Neck: Present: supple, normal ROM - Respiratory Respiratory effort: normal Respiratory: bilateral: diminished, negative: rales, rhonchi, wheezing - Cardiovascular Rhythm: regular Heart Sounds: Present: S1 & S2 - Extremities Extremities: no ischemia, abnormal (status post right BKA) Extremity abnormal: other (cellulitis nonhealing ulcers toes left foot) - Abdominal General gastrointestinal: soft, non-tender, non-distended, normal bowel sounds - Integumentary Integumentary: Present: clear, warm - Psychiatric Psychiatric: appropriate mood/affect, cooperative - Neurologic Neurologic: CNII-XII intact, moves all extremities Results - Labs CBC & Chem 7: 05/01/18 05:54 05/01/18 05:54 Labs: Laboratory Last Values WBC 10.2 K/mm3 (4.5-11.0) 05/01/18 05:54 RBC 3.30 M/mm3 (3.65-5.03) L 05/01/18 05:54 Hgb 9.0 gm/dl (10.1-14.3) L 05/01/18 05:54 Hct 29.3 % (30.3-42.9) L 05/01/18 05:54 MCV 89 fl (79-97) 05/01/18 05:54 MCH 27 pg (28-32) L 05/01/18 05:54 MCHC 31 % (30-34) 05/01/18 05:54 RDW 17.4 % (13.2-15.2) H 05/01/18 05:54 Plt Count 270 K/mm3 (140-440) 05/01/18 05:54 Lymph % (Auto) 15.0 % (13.4-35.0) 05/01/18 05:54 [place] % (Auto) 7.4 % (0.0-7.3) H 05/01/18 05:54 Eos % (Auto) 7.5 % (0.0-4.3) H 05/01/18 05:54 Baso % (Auto) 0.9 % (0.0-1.8) 05/01/18 05:54 Lymph # 1.5 K/mm3 (1.2-5.4) 05/01/18 05:54 [place] # 0.8 K/mm3 (0.0-0.8) 05/01/18 05:54 Eos # 0.8 K/mm3 (0.0-0.4) H 05/01/18 05:54 Baso # 0.1 K/mm3 (0.0-0.1) 05/01/18 05:54 Seg Neutrophils % 69.2 % (40.0-70.0) 05/01/18 05:54 Seg Neutrophils # 7.0 K/mm3 (1.8-7.7) 05/01/18 05:54 D-Dimer 3598.04 ng/mlDDU (0-234) H 04/30/18 04:25 Sodium 140 mmol/L (137-145) 05/01/18 05:54 Potassium 4.3 mmol/L (3.6-5.0) 05/01/18 05:54 Chloride 108.5 mmol/L (98-107) H 05/01/18 05:54 Carbon Dioxide 18 mmol/L (22-30) L 05/01/18 05:54 Anion Gap 18 mmol/L 05/01/18 05:54 BUN 28 mg/dL (7-17) H 05/01/18 05:54 Creatinine 2.0 mg/dL (0.7-1.2) H 05/01/18 05:54 Estimated GFR 33 ml/min 05/01/18 05:54 BUN/Creatinine Ratio 14 % 05/01/18 05:54 Glucose 100 mg/dL (65-100) 05/01/18 05:54 POC Glucose 89 (70-105) 05/01/18 05:11 Calcium 7.7 mg/dL (8.4-10.2) L 05/01/18 05:54 Magnesium 1.70 mg/dL (1.7-2.3) 05/01/18 05:54 Total Bilirubin 0.70 mg/dL (0.1-1.2) 04/29/18 19:35 Direct Bilirubin 0.2 mg/dL (0-0.2) 04/29/18 19:35 Indirect Bilirubin 0.5 mg/dL 04/29/18 19:35 AST 9 units/L (5-40) 04/29/18 19:35 ALT < 5 units/L (7-56) L 04/29/18 19:35 Alkaline Phosphatase 116 units/L (35-129) 04/29/18 19:35 Troponin T 0.081 ng/mL (0.00-0.029) H 05/01/18 05:54 Total Protein 7.4 g/dL (6.3-8.2) 04/29/18 19:35 Albumin 2.8 g/dL (3.9-5) L 04/29/18 19:35 Albumin/Globulin Ratio 0.6 % 04/29/18 19:35 Triglycerides 99 mg/dL (2-149) 04/29/18 19:35 Cholesterol 134 mg/dL (50-199) 04/29/18 19:35 LDL Cholesterol Direct 65 mg/dL (50-130) 04/29/18 19:35 HDL Cholesterol 56 mg/dL (40-59) 04/29/18 19:35 Cholesterol/HDL Ratio 2.39 % 04/29/18 19:35 Lipase 6 units/L (13-60) L 04/29/18 19:35 HCG, Qual Positive (Negative) 04/29/18 19:35 HCG, Quant 6.94 mIU/mL (0-4) H 04/29/18 19:35 Urine Color Shayla (Yellow) 04/30/18 07:15 Urine Turbidity Cloudy (Clear) 04/30/18 07:15 Urine pH 5.0 (5.0-7.0) 04/30/18 07:15 Ur Specific [place] 1.017 (1.003-1.030) 04/30/18 07:15 Urine Protein >2000 mg dl mg/dL (Negative) 04/30/18 07:15 Urine Glucose (UA) 50 mg/dL (Negative) 04/30/18 07:15 Urine Ketones Tr mg/dL (Negative) 04/30/18 07:15 Urine Blood Sm (Negative) 04/30/18 07:15 Urine Nitrite Neg (Negative) 04/30/18 07:15 Urine Bilirubin Neg (Negative) 04/30/18 07:15 Urine Urobilinogen < 2.0 mg/dL (<2.0) 04/30/18 07:15 Ur Leukocyte Esterase Mod (Negative) 04/30/18 07:15 Urine WBC (Auto) > 182.0 /HPF (0.0-6.0) H 04/30/18 07:15 Urine RBC (Auto) 149.0 /HPF (0.0-6.0) 04/30/18 07:15 U Epithel Cells (Auto) 4.0 /HPF (0-13.0) 04/30/18 07:15 Urine Bacteria (Auto) 4+ /HPF (Negative) 04/30/18 07:15 Urine WBC Clumps 3+ /HPF 04/30/18 07:15 Urine Mucus Few /HPF 04/30/18 07:15
[2018-05-01] MEDS: KEPPRA PO SCH ×2 (11:44→21:42)
--- NOTE | 2018-05-01 11:51 | Progress Note ---
Assessment and Plan Echo reviewed - EF 40-45%, impaired relaxation, evidence of atrial septal aneurysm, trace TR. Currently stable cardiac status. Cont present cardiac management. Recommend nephrology consultation per primary in setting of worsening renal indices. f/u CBC and BMP in AM. The patient has been seen in conjunction with Dr. Pritchard who agrees with the assessment and plan of care. - Patient Problems (1) Rib pain on right side Current Visit: Yes Status: Acute (2) Elevated troponin Current Visit: Yes Status: Acute (3) TOMMIE (acute kidney injury) Current Visit: No Status: Acute (4) UTI (urinary tract infection) Onset Date: 09/14/13 Current Visit: Yes Status: Acute (5) Seizure disorder Current Visit: Yes Status: Chronic (6) History of osteomyelitis Current Visit: Yes Status: Chronic (7) Diabetes Onset Date: 09/15/13 Current Visit: Yes Status: Chronic Qualifiers: Diabetes mellitus type: type 1 Diabetes mellitus complication status: with skin complications Diabetes mellitus complication detail: with foot ulcer Qualified Code(s): E10.621 - Type 1 diabetes mellitus with foot ulcer; L97.509 - Non-pressure chronic ulcer of other part of unspecified foot with unspecified severity (8) Hypertension Onset Date: 07/07/13 Current Visit: Yes Status: Chronic Qualifiers: Hypertension type: essential hypertension Qualified Code(s): I10 - Essential (primary) hypertension (9) Anemia Current Visit: No Status: Acute Subjective Date of service: 05/01/18 Principal diagnosis: rib pain Interval history: pt resting in bed, states she is feeling a little better today. in SR on telemetry. Objective Last Vital Signs Temp 98.2 F 05/01/18 04:58 Pulse 96 H 05/01/18 05:23 Resp 18 05/01/18 06:23 BP 156/98 05/01/18 05:23 Pulse Ox 99 05/01/18 04:58 - Physical Examination General: No Apparent Distress HEENT: Positive: PERRL, Normocephaly, Mucus Membranes Moist Neck: Positive: neck supple, trachea midline Cardiac: Positive: Reg Rate and Rhythm, S1/S2 Lungs: Positive: Decreased Breath Sounds Neuro: Positive: Grossly Intact Abdomen: Positive: Soft. Negative: Tender Skin: Negative: Rash Musculoskeletal: No Pain Extremities: Absent: edema - Labs and Meds CBC 05/01/18 Range/Units 05:54 WBC 10.2 (4.5-11.0) K/mm3 RBC 3.30 L (3.65-5.03) M/mm3 Hgb 9.0 L (10.1-14.3) gm/dl Hct 29.3 L (30.3-42.9) % Plt Count 270 (140-440) K/mm3 Lymph # 1.5 (1.2-5.4) K/mm3 [place] # 0.8 (0.0-0.8) K/mm3 Eos # 0.8 H (0.0-0.4) K/mm3 Baso # 0.1 (0.0-0.1) K/mm3 Comprehensive Metabolic Panel 04/30/18 05/01/18 Range/Units 13:06 05:54 Sodium 141 140 (137-145) mmol/L Potassium 4.0 4.3 (3.6-5.0) mmol/L Chloride 108.0 H 108.5 H (98-107) mmol/L Carbon Dioxide 21 L 18 L (22-30) mmol/L BUN 22 H 28 H (7-17) mg/dL Creatinine 1.7 H 2.0 H (0.7-1.2) mg/dL Glucose 147 H 100 (65-100) mg/dL Calcium 7.9 L 7.7 L (8.4-10.2) mg/dL - Imaging and Cardiology EKG: report reviewed, image reviewed Echo: report reviewed (12/2016: EF 50-55%, impaired relaxation) - EKG Sinus rhythms and dysrhythmias: sinus rhythm
[2018-05-01] MEDS ORDERED: AFLURIA QUAD 2018-2019 SYRINGE IM ONE (12:00)
[2018-05-01] MEDS: ROCEPHIN/NS 2 GM/100 ML 2 GM/100 ML BAG IV SCH (13:41)
--- NOTE | 2018-05-01 14:01 | Consultation ---
History of Present Illness Consult date: 05/01/18 Reason for consult: wound care Requesting physician: JOSSELYN ROTH Chief complaint: open wound on toe - History of present illness History of present illness: 43yo F with diabetes, neuropathy, partial blindness was admitted from the emergency room after a fall at home. Admission workup revealed an open wound on the left 3rd toe. Wound care was consult. When she was found to have exposed bone, general surgery was consult. Patient reports that she has no idea what the wound looks like due to her partial blindness. Although she was aware of was that it was discolored. She has no sensation in that toe. Her main complaint is for thorax pain from her recent fall. Past History Past Medical History: diabetes, hypertension, hyperlipidemia Past Surgical History: Other (right BKA) Social history: lives with family, smoking, full code. denies: alcohol abuse, prescription drug abuse Family history: hypertension Medications and Allergies Allergies Allergy/AdvReac Type Severity Reaction Status Date / Time codeine AdvReac Hives Verified 04/29/18 21:53 eggplant Allergy Itching Uncoded 11/27/17 15:07 Home Medications Medication Instructions Recorded Confirmed Last Taken Type amLODIPine [Norvasc] 10 mg PO DAILY #30 tab 11/27/17 04/30/18 Unknown Rx ALBUTEROL NEB's [Proventil] 2.5 mg IH TID PRN 04/30/18 04/30/18 Unknown History Albuterol Sulfate [Proventil Hfa] 1 puff IH Q8H 04/30/18 04/30/18 Unknown History AtorvaSTATin [Lipitor] 40 mg PO QHS 04/30/18 04/30/18 Unknown History Hydralazine HCl 50 mg PO TID 04/30/18 04/30/18 Unknown History Insulin Glargine [Lantus] 25 units SUB-Q QHS 04/30/18 04/30/18 Unknown History Insulin Lispro Prot/Lispro 25 units SUB-Q HS 04/30/18 04/30/18 Unknown History [HumaLOG MIX 75/25] Insulin Lispro Protamin/Lispro 30 units SUB-Q QAM 04/30/18 04/30/18 Unknown History [Humalog Mix 75-25 Vial] Losartan [Cozaar] 100 mg PO QDAY 04/30/18 04/30/18 Unknown History Metoprolol Tartrate 25 mg PO BID 04/30/18 04/30/18 Unknown History Active Meds: Active Medications Acetaminophen (Tylenol) 650 mg PO Q4H PRN PRN Reason: Pain, Mild (1-3) Last Admin: 04/30/18 17:51 Dose: 650 mg Documented by: Alprazolam (Xanax) 1 mg PO QHS PRN PRN Reason: Anxiety Last Admin: 04/30/18 21:32 Dose: 1 mg Documented by: Hydralazine HCl (Apresoline) 25 mg PO Q8HR [facility] Last Admin: 05/01/18 05:23 Dose: 25 mg Documented by: Ceftriaxone Sodium (Rocephin/Ns 2 Gm/100 Ml) 2 gm in 100 mls @ 200 mls/hr IV Q24HR [facility]; Protocol Last Admin: 05/01/18 13:41 Dose: 200 mls/hr Documented by: Sodium Chloride (Nacl 0.9% 1000 Ml) 1,000 mls @ 100 mls/hr IV DIRECT [facility] Insulin Human Isoph/Insulin Regular (Humulin 70/30) 12 unit SUB-Q BIDDIAB [facility] Last Admin: 05/01/18 08:00 Dose: Not Given Documented by: Insulin Human Lispro (Humalog) 0 unit SUB-Q ACHS [facility]; Protocol Last Admin: 05/01/18 11:30 Dose: Not Given Documented by: Levetiracetam (Keppra) 750 mg PO BID [facility] Last Admin: 05/01/18 11:44 Dose: 750 mg Documented by: Metoprolol Tartrate (Lopressor) 25 mg PO BID [facility] Oxycodone/Acetaminophen (Percocet 5/325) 1 tab PO Q4H PRN PRN Reason: Pain, Moderate (4-6) Last Admin: 05/01/18 05:23 Dose: 1 tab Documented by: Review of Systems - Constitutional no fever, no chills, no chronic pain - Cardiovascular chest pain, no shortness of breath - Respiratory no cough - Gastrointestinal abdominal pain, no nausea, no vomiting - Genitourinary Genitourinary: no dysuria - Integumentary color changes Exam Vital Signs Temp Pulse BP Pulse Ox 98.8 F 115 H 151/103 115 H 04/29/18 20:47 04/29/18 20:47 04/29/18 20:47 02/18/19 20:47 - General physical appearance Positive: no distress, no pain, obese, other (pleasant) - Eyes Positive: deviation - Respiratory Positive: normal expansion, normal respiratory effort - Extremities Extremity abnormal: other (Right BKA. Left 3rd toe has joint exposed at IP joint. No pus. No erythema. chronic skin changes at edge of wound. no sensation. ) - Neurologic Neurologic: alert and oriented to time, place and person - Psychiatric Psychiatric: appropriate mood/affect, intact judgment & insight Results - Labs 05/01/18 05:54 05/01/18 05:54 Abnormal lab results 04/30/18 04/30/18 04/30/18 Range/Units 13:06 15:54 17:44 RBC (3.65-5.03) M/mm3 Hgb (10.1-14.3) gm/dl Hct (30.3-42.9) % MCH (28-32) pg RDW (13.2-15.2) % [place] % (Auto) (0.0-7.3) % Eos % (Auto) (0.0-4.3) % Eos # (0.0-0.4) K/mm3 Chloride 108.0 H (98-107) mmol/L Carbon Dioxide 21 L (22-30) mmol/L BUN 22 H (7-17) mg/dL Creatinine 1.7 H (0.7-1.2) mg/dL Glucose 147 H (65-100) mg/dL POC Glucose 186 H 183 H (70-105) Calcium 7.9 L (8.4-10.2) mg/dL Troponin T (0.00-0.029) ng/mL 04/30/18 05/01/18 05/01/18 Range/Units 21:03 05:54 05:54 RBC 3.30 L (3.65-5.03) M/mm3 Hgb 9.0 L (10.1-14.3) gm/dl Hct 29.3 L (30.3-42.9) % MCH 27 L (28-32) pg RDW 17.4 H (13.2-15.2) % [place] % (Auto) 7.4 H (0.0-7.3) % Eos % (Auto) 7.5 H (0.0-4.3) % Eos # 0.8 H (0.0-0.4) K/mm3 Chloride 108.5 H (98-107) mmol/L Carbon Dioxide 18 L (22-30) mmol/L BUN 28 H (7-17) mg/dL Creatinine 2.0 H (0.7-1.2) mg/dL Glucose (65-100) mg/dL POC Glucose 175 H (70-105) Calcium 7.7 L (8.4-10.2) mg/dL Troponin T 0.081 H (0.00-0.029) ng/mL Diabetes panel 04/30/18 05/01/18 Range/Units 13:06 05:54 Sodium 141 140 (137-145) mmol/L Potassium 4.0 4.3 (3.6-5.0) mmol/L Chloride 108.0 H 108.5 H (98-107) mmol/L Carbon Dioxide 21 L 18 L (22-30) mmol/L BUN 22 H 28 H (7-17) mg/dL Creatinine 1.7 H 2.0 H (0.7-1.2) mg/dL Glucose 147 H 100 (65-100) mg/dL Calcium 7.9 L 7.7 L (8.4-10.2) mg/dL Calcium panel 04/30/18 05/01/18 Range/Units 13:06 05:54 Calcium 7.9 L 7.7 L (8.4-10.2) mg/dL Pituitary panel 04/30/18 05/01/18 Range/Units 13:06 05:54 Sodium 141 140 (137-145) mmol/L Potassium 4.0 4.3 (3.6-5.0) mmol/L Chloride 108.0 H 108.5 H (98-107) mmol/L Carbon Dioxide 21 L 18 L (22-30) mmol/L BUN 22 H 28 H (7-17) mg/dL Creatinine 1.7 H 2.0 H (0.7-1.2) mg/dL Glucose 147 H 100 (65-100) mg/dL Calcium 7.9 L 7.7 L (8.4-10.2) mg/dL Adrenal panel 04/30/18 05/01/18 Range/Units 13:06 05:54 Sodium 141 140 (137-145) mmol/L Potassium 4.0 4.3 (3.6-5.0) mmol/L Chloride 108.0 H 108.5 H (98-107) mmol/L Carbon Dioxide 21 L 18 L (22-30) mmol/L BUN 22 H 28 H (7-17) mg/dL Creatinine 1.7 H 2.0 H (0.7-1.2) mg/dL Glucose 147 H 100 (65-100) mg/dL Calcium 7.9 L 7.7 L (8.4-10.2) mg/dL Assessment and Plan - Patient Problems (1) Diabetic foot ulcer Current Visit: Yes Status: Acute Qualifiers: Diabetic foot ulcer location: toe Laterality: left Non-pressure ulcer stage: with bone involvement without evidence of necrosis Plan to address problem: Pt stable. Has chronic wound involving the toe joint. This is not salvagable. Wound recommend partial amputation. Procedure, risks, benefits discussed. Questions answered. Will add to tomorrow's OR schedule. Please call with questions. time=30min
[2018-05-01] MEDS: LOPRESSOR PO SCH ×2 (14:15→21:43)
[2018-05-01] MEDS ORDERED: ZOFRAN IV PRN (21:38)
[2018-05-01] MEDS: XANAX PO PRN (21:46)
[2018-05-01] MEDS: NACL 0.9% 1000 ML 1,000 ML IV SCH (21:46)
[2018-05-02] MEDS: PERCOCET 5/325 PO PRN (02:59)
[2018-05-02 06:04] LABS: Hematocrit 26.1 % (30.3-42.9); Hemoglobin 8.5 gm/dl (10.1-14.3); Mean Corpuscular HGB Conc 33 % (30-34); Mean Corpuscular Volume 87 fl (79-97); Platelet Count 260 K/mm3 (140-440); Red Blood Count 3.02 M/mm3 (3.65-5.03); Red Cell Distribution Width 17.3 % (13.2-15.2)
[2018-05-02 06:24] LABS: Calcium 7.2 mg/dL (8.4-10.2)
[2018-05-02] MEDS: APRESOLINE PO SCH (06:37)
[2018-05-02] MEDS: NACL 0.9% 1000 ML 1,000 ML IV SCH (08:27)
[2018-05-02] MEDS: HumaLOG SUB-Q SCH (08:28)
[2018-05-02] MEDS: LOPRESSOR PO SCH (10:48)
[2018-05-02] MEDS: KEPPRA PO SCH (10:48)
[2018-05-02] MEDS: ROCEPHIN/NS 2 GM/100 ML 2 GM/100 ML BAG IV SCH (10:48)
--- NOTE | 2018-05-02 11:28 | Progress Note ---
Assessment and Plan Currently stable cardiac status. Cont present cardiac management. General surgery recs noted - pt has chronic wound involving the toe joint, partial amputation recommended, pt added to today's OR schedule. H/H trending down and renal indices trending upwards. Recommend nephrology consultation per primary in setting of worsening renal i ndices. IVF per primary. f/u CBC and BMP in AM. The patient has been seen in conjunction with Dr. Pritchard who agrees with the assessment and plan of care. - Patient Problems (1) Rib pain on right side Current Visit: Yes Status: Acute (2) Elevated troponin Current Visit: Yes Status: Acute (3) TOMMIE (acute kidney injury) Current Visit: No Status: Acute (4) UTI (urinary tract infection) Onset Date: 09/14/13 Current Visit: Yes Status: Acute (5) Seizure disorder Current Visit: Yes Status: Chronic (6) History of osteomyelitis Current Visit: Yes Status: Chronic (7) Diabetes Onset Date: 09/15/13 Current Visit: Yes Status: Chronic Qualifiers: Diabetes mellitus type: type 1 Diabetes mellitus complication status: with skin complications Diabetes mellitus complication detail: with foot ulcer Qualified Code(s): E10.621 - Type 1 diabetes mellitus with foot ulcer; L97.509 - Non-pressure chronic ulcer of other part of unspecified foot with unspecified severity (8) Hypertension Onset Date: 07/07/13 Current Visit: Yes Status: Chronic Qualifiers: Hypertension type: essential hypertension Qualified Code(s): I10 - Essential (primary) hypertension (9) Anemia Current Visit: No Status: Acute Subjective Date of service: 05/02/18 Principal diagnosis: rib pain Interval history: pt resting in bed, no current cardiac complaints. in SR on telemetry. Objective Last Vital Signs Temp 97.3 F L 05/02/18 08:00 Pulse 85 05/02/18 10:48 Resp 20 05/02/18 08:00 BP 110/73 05/02/18 08:00 Pulse Ox 99 05/02/18 08:00 - Physical Examination General: No Apparent Distress HEENT: Positive: PERRL, Normocephaly, Mucus Membranes Moist Neck: Positive: neck supple, trachea midline Cardiac: Positive: Reg Rate and Rhythm, S1/S2 Lungs: Positive: Decreased Breath Sounds Neuro: Positive: Grossly Intact Abdomen: Positive: Soft. Negative: Tender Skin: Negative: Rash Musculoskeletal: No Pain Extremities: Absent: edema - Labs and Meds CBC 05/02/18 Range/Units 05:43 WBC 9.4 (4.5-11.0) K/mm3 RBC 3.02 L (3.65-5.03) M/mm3 Hgb 8.5 L (10.1-14.3) gm/dl Hct 26.1 L (30.3-42.9) % Plt Count 260 (140-440) K/mm3 Comprehensive Metabolic Panel 05/02/18 Range/Units 05:43 Sodium 141 (137-145) mmol/L Potassium 4.5 (3.6-5.0) mmol/L Chloride 109.7 H (98-107) mmol/L Carbon Dioxide 19 L (22-30) mmol/L BUN 34 H (7-17) mg/dL Creatinine 2.4 H (0.7-1.2) mg/dL Glucose 143 H (65-100) mg/dL Calcium 7.2 L (8.4-10.2) mg/dL - Imaging and Cardiology EKG: report reviewed, image reviewed Echo: report reviewed (04/2018: EF 40-45%, impaired relaxation, evidence of atrial septal aneurysm, trace TR. 12/2016: EF 50-55%, impaired relaxation) - EKG Sinus rhythms and dysrhythmias: sinus rhythm
--- NOTE | 2018-05-02 14:20 | Event Note ---
Date: 05/02/18 There was a concern about a positive test. HCG level would indicate a very early . Recent US was neg for intrauterine . Discussed with patient. The last time she was sexually active was 2-3 months ago. She is not trying to have a family at this time. She would like to proceed with surgery. She understands that there is a risk to a possible fetus if she was truly . I do not think that she is . The history, US, and level of HCG don't fit with an active at this time. Staff checking with risk management. Will proceed once cleared by risk management.
--- NOTE | 2018-05-02 14:24 | Anesthesia Consultation ---
Anesthesia Consult and Med Hx Date of service: 05/02/18 - Airway Anesthetic Teeth Evaluation: Poor ROM Head & Neck: Adequate Mental/Hyoid Distance: Adequate Mallampati Class: Class II Intubation Access Assessment: Probably Good - Pulmonary Exam CTA: Yes - Cardiac Exam Cardiac Exam: RRR Anesthetic Concerns: Multiple missing and broken teeth. None loose per patient. - Pre-Operative Health Status ASA Pre-Surgery Classification: ASA4 - Pulmonary Hx Smoking: Yes Hx Asthma: Yes SOB: Yes (cannot lie flat) - Cardiovascular System Hx Hypertension: Yes - Central Nervous System Hx Neuromuscular Disorder: Yes (fibromyalgia, neuropathy both legs (numbness/tingling/burning)) Hx Seizures: Yes CVA: No Hx Back Pain: Yes (DJD and multiple old compression fractures in neck and back) Hx Psychiatric Problems: Yes - Gastrointestinal Hx Ulcer: No Hx Gastroesophageal Reflux Disease: Yes (denies current complaints) - Endocrine Hx Renal Disease: Yes ( TOMMIE creatinine 2.4) Hx Insulin Dependent Diabetes: Yes - Hematic Hx Anemia: No (H&H ) - Other Systems Hx Obesity: Yes - Additional Comments Anesthesia Medical History Comments: Echo shows EF 40-45 %. Possible atrial septat aneurysm.
--- NOTE | 2018-05-02 14:27 | Anesthesia Day of Surgery ---
Anesthesia Day of Surgery - Day of Surgery Patient Examined: Yes Patient H&P Reviewed: Yes Patient is NPO: Yes
[2018-05-02] MEDS ORDERED: DIPRIVAN 10 MG/ML IV ONE (14:53)
[2018-05-02] MEDS ORDERED: XYLOCAINE MPF 2% ONE (14:53)
[2018-05-02] MEDS ORDERED: DILAUDID ONE (14:53)
[2018-05-02] MEDS ORDERED: PEPCID IV NR (15:00)
[2018-05-02] MEDS ORDERED: VERSED IV NR (15:00)
[2018-05-02] MEDS ORDERED: VERSED IV ONE (15:33)
[2018-05-02] MEDS ORDERED: LEVOPHED DRIP 4 MG/NS 250 ML 4 MG/250 ML BAG IV SCH (16:00)
[2018-05-02] MEDS ORDERED: LEVOPHED DRIP 4 MG/NS 250 ML 4 MG/250 ML BAG IV ONE (16:05)
--- NOTE | 2018-05-02 16:13 | Progress Note ---
Assessment and Plan Assessment and plan: --Status post multiple events of cardiac arrest; Status post CPR, continue current medications, patient is on vent support,multiple pressors severe distress, Critically ill, very poor prognosis Continue the current management, pulmonary critical following --Acute respiratory failure; continue ventilatory support, nebulizers, pulmonary following --Shock/possible septic shock; continue pressors, IV antibiotics, supportive care --History of diabetic foot ulcer; wound care and antibiotics, --Chronic kidney disease continue current management, nephrology consult as needed; --Lactic acidosis; secondary to sepsis --Non-ST elevation [place]/cardiology following, continue current management --Diabetic neuropathy; on Neurontin --Moderate to severe malnutrition; supportive care --DO NOT RESUSCITATE status[ per NOK ] Patient is critically ill with very poor prognosis, the patient's cousin Gerson Valladares is aware. Continue to contact the family members Consults and recommendations noted Critical care time 35 minutes History Interval history: Patient was scheduled for partial amputation of left third toe. Patient was taken to the OR for surgical procedure As per medical records, patient went into cardiac arrest even before the surgery was started Francisco moon was called, CPR was done per ACLS protocol in OR, patient was intubated and transferred to ICU. As the patient was being wheeled in to ICU , patient had another cardiac arrest, FRANCISCO BLUE was called CPR per ACLS protocol was run by zigzag machine operator Dr. Escobar. The patient revived briefly Patient subsequently had cardiac arrests multiple times requiring CPR per ACLS protocol ,Refer to code records Patient was hypotensive requiring multiple pressors, septic shock, ARDS, possible pulmonary edema with very poor prognosis Family was not available,could not be contacted and multiple physicians, administrators tried to contact family And finally could contact NOK Mr.Ronald Gerson Valladares, a cousin of the patient from [place]. Patient's critical condition, Multiple cardiac arrests and resuscitation efforts, poor prognosis discussed with the cousin from [place] Cousin who is a medical person, requested DO NOT RESUSCITATE on further events of cardiac arrest. Patient was made DO NOT RESUSCITATE status. Patient is critically ill hypotensive, on pressors Intubated on ventilatory support, in severe distress Hospitalist Physical - Constitutional Vitals: Temp Pulse Resp BP Pulse Ox 98.2 F 75 14 136/95 96 05/02/18 12:45 05/02/18 12:45 05/02/18 12:45 05/02/18 12:45 05/02/18 12:45 General appearance: Present: severe distress, well-nourished, obese, other (intubated on ventilatory support, hypotensive) - EENT Eyes: Present: PERRL - Neck Neck: Present: supple - Respiratory Respiratory effort: labored Respiratory: bilateral: diminished, rhonchi, negative: rales, wheezing - Cardiovascular Rhythm: regular (tachycardia) Heart Sounds: Present: S1 & S2 - Extremities Extremities: No edema, abnormal ( s/p BKA) Extremity abnormal: other (diabetic foot ulcer left) - Abdominal General gastrointestinal: soft, non-tender, non-distended, normal bowel sounds - Integumentary Integumentary: Present: clear, warm - Psychiatric Psychiatric: other (intubated on vent) - Neurologic Neurologic: other (intubated on vent) Results - Labs CBC & Chem 7: 05/02/18 17:00 05/02/18 17:00 Labs: Laboratory Last Values WBC 9.4 K/mm3 (4.5-11.0) 05/02/18 05:43 RBC 3.02 M/mm3 (3.65-5.03) L 05/02/18 05:43 Hgb 8.5 gm/dl (10.1-14.3) L 05/02/18 05:43 Hct 26.1 % (30.3-42.9) L 05/02/18 05:43 MCV 87 fl (79-97) 05/02/18 05:43 MCH 28 pg (28-32) 05/02/18 05:43 MCHC 33 % (30-34) 05/02/18 05:43 RDW 17.3 % (13.2-15.2) H 05/02/18 05:43 Plt Count 260 K/mm3 (140-440) 05/02/18 05:43 Lymph % (Auto) 15.0 % (13.4-35.0) 05/01/18 05:54 [place] % (Auto) 7.4 % (0.0-7.3) H 05/01/18 05:54 Eos % (Auto) 7.5 % (0.0-4.3) H 05/01/18 05:54 Baso % (Auto) 0.9 % (0.0-1.8) 05/01/18 05:54 Lymph # 1.5 K/mm3 (1.2-5.4) 05/01/18 05:54 [place] # 0.8 K/mm3 (0.0-0.8) 05/01/18 05:54 Eos # 0.8 K/mm3 (0.0-0.4) H 05/01/18 05:54 Baso # 0.1 K/mm3 (0.0-0.1) 05/01/18 05:54 Seg Neutrophils % 69.2 % (40.0-70.0) 05/01/18 05:54 Seg Neutrophils # 7.0 K/mm3 (1.8-7.7) 05/01/18 05:54 D-Dimer 3598.04 ng/mlDDU (0-234) H 04/30/18 04:25 Sodium 141 mmol/L (137-145) 05/02/18 05:43 Potassium 4.5 mmol/L (3.6-5.0) 05/02/18 05:43 Chloride 109.7 mmol/L (98-107) H 05/02/18 05:43 Carbon Dioxide 19 mmol/L (22-30) L 05/02/18 05:43 Anion Gap 17 mmol/L 05/02/18 05:43 BUN 34 mg/dL (7-17) H 05/02/18 05:43 Creatinine 2.4 mg/dL (0.7-1.2) H 05/02/18 05:43 Estimated GFR 27 ml/min 05/02/18 05:43 BUN/Creatinine Ratio 14 % 05/02/18 05:43 Glucose 143 mg/dL (65-100) H 05/02/18 05:43 POC Glucose 125 (70-105) H 05/02/18 13:04 Calcium 7.2 mg/dL (8.4-10.2) L 05/02/18 05:43 Magnesium 1.70 mg/dL (1.7-2.3) 05/01/18 05:54 Total Bilirubin 0.70 mg/dL (0.1-1.2) 04/29/18 19:35 Direct Bilirubin 0.2 mg/dL (0-0.2) 04/29/18 19:35 Indirect Bilirubin 0.5 mg/dL 04/29/18 19:35 AST 9 units/L (5-40) 04/29/18 19:35 ALT < 5 units/L (7-56) L 04/29/18 19:35 Alkaline Phosphatase 116 units/L (35-129) 04/29/18 19:35 Troponin T 0.081 ng/mL (0.00-0.029) H 05/01/18 05:54 Total Protein 7.4 g/dL (6.3-8.2) 04/29/18 19:35 Albumin 2.8 g/dL (3.9-5) L 04/29/18 19:35 Albumin/Globulin Ratio 0.6 % 04/29/18 19:35 Triglycerides 99 mg/dL (2-149) 04/29/18 19:35 Cholesterol 134 mg/dL (50-199) 04/29/18 19:35 LDL Cholesterol Direct 65 mg/dL (50-130) 04/29/18 19:35 HDL Cholesterol 56 mg/dL (40-59) 04/29/18 19:35 Cholesterol/HDL Ratio 2.39 % 04/29/18 19:35 Lipase 6 units/L (13-60) L 04/29/18 19:35 HCG, Qual Positive (Negative) 04/29/18 19:35 HCG, Quant 6.94 mIU/mL (0-4) H 04/29/18 19:35 Urine Color Shayla (Yellow) 04/30/18 07:15 Urine Turbidity Cloudy (Clear) 04/30/18 07:15 Urine pH 5.0 (5.0-7.0) 04/30/18 07:15 Ur Specific [place] 1.017 (1.003-1.030) 04/30/18 07:15 Urine Protein >2000 mg dl mg/dL (Negative) 04/30/18 07:15 Urine Glucose (UA) 50 mg/dL (Negative) 04/30/18 07:15 Urine Ketones Tr mg/dL (Negative) 04/30/18 07:15 Urine Blood Sm (Negative) 04/30/18 07:15 Urine Nitrite Neg (Negative) 04/30/18 07:15 Urine Bilirubin Neg (Negative) 04/30/18 07:15 Urine Urobilinogen < 2.0 mg/dL (<2.0) 04/30/18 07:15 Ur Leukocyte Esterase Mod (Negative) 04/30/18 07:15 Urine WBC (Auto) > 182.0 /HPF (0.0-6.0) H 04/30/18 07:15 Urine RBC (Auto) 149.0 /HPF (0.0-6.0) 04/30/18 07:15 U Epithel Cells (Auto) 4.0 /HPF (0-13.0) 04/30/18 07:15 Urine Bacteria (Auto) 4+ /HPF (Negative) 04/30/18 07:15 Urine WBC Clumps 3+ /HPF 04/30/18 07:15 Urine Mucus Few /HPF 04/30/18 07:15 Nutrition/Malnutrition Assess - Dietary Evaluation Nutrition/Malnutrition Findings: Nutrition Notes Start: 05/01/18 14:57 Freq: Status: Active Protocol: Document 05/01/18 15:00 ER (Rec: 05/01/18 15:15 ER [id number]) Co-Sign 05/01/18 15:00 LP Nutrition Notes Need for Assessment generated from: nurse reviewer Initial or Follow up Brief Note Current Diagnosis Acute Kidney Injury Other Pertinent Diagnosis Right BKA, UTI Current Diet Consistent CHO Labs/Tests Reviewed Pertinent Medications Reviewed Height 5 ft 4 in Weight 90.8 kg [place] Body Weight (kg) 54.54 BMI 34.3 Weight change and time frame RN screen for skin risk. Garry score 18. Pt. stated she is eating 100% of meals and does not have any N/V/D/C or chewing/swallowing difficulties or previous weight-loss. Pt. has a right BKA, but pt. does not want Guilherme. #1 Nutrition Diagnosis No nutrition diagnosis at this time Nutrition Intervention Revisit per MD consult or patient Sign Off request:
[2018-05-02] MEDS ORDERED: ADRENALIN ONE ×2 (16:21→16:45)
[2018-05-02] MEDS ORDERED: ROBINUL ONE (16:21)
--- NOTE | 2018-05-02 16:40 | Event Note ---
Date: 05/02/18 Pt scheduled for partial toe amputation in OR today. case unable to be completed. After induction and prior to incision, the patient coded. Procedure was not able to be started. Pt was coded in OR and taken to ICU. Multiple attempts were made to contact family without any success. ICU attending asked for central line placement which I did. Will ask wound care nurse to continue routine wound care for now.
--- NOTE | 2018-05-02 16:43 | Procedure Note ---
Date of procedure: 05/02/18 Pre-op diagnosis: cardiac arrest Post-op diagnosis: same Procedure: Right femoral central line placement Pt was in a code situation. No family was available for consent. Sterile prep and drape. Anatomical landmarks were identified. Introducer needle was inserted in the right groin and aimed medially. Dark blood was easily aspirated. Guide wire was easily inserted. Tract was dilated and catheter was subsequently inserted. All 3 lines were easily aspirated and flushed. Dressings were placed. Patient on procedure well. There were no complications. Anesthesia: none Surgeon: CECE ELLSWORTH Estimated blood loss: minimal Pathology: none Condition: critical Disposition: ICU
[2018-05-02] MEDS ORDERED: ADRENALIN IV ONE (16:45)
[2018-05-02] MEDS ORDERED: ATROPINE 0.1% (CARDIAC) ONE (16:45)
[2018-05-02] MEDS ORDERED: SUBLIMAZE IV PRN (16:54)
[2018-05-02] MEDS ORDERED: VASELINE LIP THERAPY TP PRN (16:54)
[2018-05-02] MEDS ORDERED: ARTIFICIAL TEARS OPHTH OINT OU PRN (16:54)
[2018-05-02] MEDS ORDERED: D5W 1,000 ML with SODIUM BICARBONATE 150 MEQ IV ONE (17:00)
[2018-05-02] MEDS ORDERED: Vasostrict 20 UNIT in NACL 0.9% 100 ML IV SCH (17:00)
[2018-05-02] MEDS ORDERED: SODIUM BICARBONATE 150 MEQ in D5W 1,000 ML IV SCH (17:00)
[2018-05-02] MEDS ORDERED: fentaNYL DRIP Premix 2,000 MCG/100 ML BAG IV SCH (17:00)
[2018-05-02] MEDS ORDERED: INTROPIN DRIP 800 MG/D5W 250 ML 800 MG/250 ML BAG IV SCH (17:00)
--- NOTE | 2018-05-02 17:14 | Event Note ---
Date: 05/02/18 Prior to preceding to surgery, patient received clearance from cardiac team high D-dimer. Per report, patient had negative V/Q scan, bilateral dopplers. Additionally, risk management was consulted regarding status given her recent positive B-HCG. Both teams cleared patient for surgery. Patient arrived to OR4 from preop holding area at 1443. VSS on arrival were SpO2 98% on room air, BP 127/94, and pulse 77. Of note, she reported 8/10 pain and 0.5mg dilaudid was given prior to commencing induction. After 5 minutes of adequate preoxygenation with 10L/min on FiO2 1.0, new set of vitals were SpO2 100%. Patient had BP 152/105 and pulse 78. On induction at 1452, 50mg lidocaine IV and 200mg propofol IV were given by attending anesthesiologist. Placement of Ambu LMA#3 was successfully placed by anesthesiologist optometrist assistant. Adequate ventilation was confirmed by presence of continuos ETCO2 wave, bilateral chest sounds, chest rise, and mist in tube. 5 minutes post-induction patient vitals were SpO2 100% BP 140/85 pulse 67. Per report of AA, after a few minutes of troubleshooting LMA placement, BP was 64/39 pulse 56 and SpO2 79% (on FiO2 1.0); time out was done at 15:01 and attending called to the room immediately. Within the next minute (by 15:02), attending arrived. As part of the code,patient was intubated; immediately upon insertion of endotracheal tube, copious amount of ana red serosanguinous, frothy fluid coming out of the tube. During event, patient required multiple in-line suctioning of ETT and airway. Please refer to anesthesia record and code sheet for further details regarding code event.
[2018-05-02 17:22] VITALS: BP 150/104
[2018-05-02 17:31] LABS: Hematocrit 30.5 % (30.3-42.9); Hemoglobin 9.3 gm/dl (10.1-14.3); Mean Corpuscular HGB Conc 31 % (30-34); Mean Corpuscular Volume 90 fl (79-97); Platelet Count 299 K/mm3 (140-440); Red Cell Distribution Width 17.7 % (13.2-15.2)
[2018-05-02 17:50] LABS: Albumin 1.8 g/dL (3.9-5); Calcium 6.9 mg/dL (8.4-10.2)
--- NOTE | 2018-05-02 17:55 | XRay Report ---
FINAL REPORT EXAM: XR CHEST 1V AP HISTORY: ETT placement TECHNIQUE: Frontal chest radiograph. PRIORS: 04/29/2018. FINDINGS: The endotracheal tube tip projects in the mid thoracic trachea. The cardiomediastinal silhouette is n ormal. New diffuse bilateral consolidative pulmonary opacities are seen. No pleural effusion. No pneumothorax. No acute osseous abnormality. IMPRESSION: 1. Endotracheal tube tip projecting in the mid thoracic trachea. 2. New diffuse pulmonary opacities may reflect multifocal pneumonia versus pulmonary edema. ARDS is a lso possible.
[2018-05-02 18:22] LABS: Anisocytosis 1+; Basophils % (Manual) 0 % (0.0-1.8); Large Platelets 1+; Poikilocytosis 1+; Total Cells Counted 100
[2018-05-02 18:23] LABS: Platelet Estimate Consistent w Auto
--- NOTE | 2018-05-02 19:08 | Event Note ---
Date: 05/02/18 Nurse called and reported that patient When I evaluated the patient patient is unresponsive, pupils dilated and fixed No cardiopulmonary activity noted, pronounced Time of 18:47 Hrs [6:47 pm] on 05/02/2018
--- NOTE | 2018-05-02 19:18 | Death Summary ---
Summary - Providers Date of service: 05/02/18 Consults: 04/30/18 04:48 Consult to Cardiology [CONS] Routine Consulting Provider: ROCK CARLOS Reason For Exam: Elevated troponin 05/01/18 08:49 Consult to Wound/ET Nurse [CONS] Routine Reason For Exam: wound eval 05/02/18 16:35 Consult to Physician [CONS] Routine Comment: Consulting Provider: GAIL AGUILLON Physician Instructions: Reason For Exam: Cr Care cosult/Cardiac arrest 05/02/18 16:54 Consult to Dietitian/Nutrition [CONS] Routine Physician Instructions: Reason For Exam: Reason for Consult: Evaluate nutritional intake Attending: JAMIE MCADAMS - summary Date of admission: 04/30/18 07:20 Date of : 05/02/18 (18:47 hrs [6:47 pm]) Significant findings: --Status post multiple events of cardiac arrest; Status post CPR, continue current medications, patient is on resource Critically ill, DO NOT RESUSCITATE status --Acute respiratory failure; continue ventilatory support, nebulizers, pulmonary following --Shock/possible septic shock; continue pressors, IV antibiotics, supportive care --History of diabetic foot ulcer; wound care and antibiotics, --Lactic acidosis; secondary to sepsis --Non-ST elevation [place]/cardiology following, continue current management --Diabetic neuropathy; on Neurontin
--- NOTE | 2018-05-02 21:19 | Progress Note ---
Assessment and Plan Assessment and plan: -- Lt Diabetic foot ulcer; wound care, empiric antibiotics, Surgical procedure, partial amputation of the toe for surgery today --Diabetic neuropathy; continue gabapentin --History of osteomyelitis of right ankle/status post right BKA in 2017 --2 diabetes mellitus; moderate control, Accu-Chek sliding scale coverage and ADA diet and long-acting insulin , , check A1c, diabetic education if needed --Non-ST elevation UT; atypical chest pain positive cardiac enzymes, aspirin and beta blockers and erasmo inhibitors nitrates statins Cardiology evaluated the patient, medical management --Elevated D dimers; negative PE, negative DVT --Acute kidney injury; TOMMIE; worsening renal function,Vasomotor nephropathy IV hydration monitor renal function, avoid nephrotoxins, consider nephrology evaluation --Urinary tract infection; empiric antibiotics with Rocephin, follow cultures --Hypertension; resume home antihypertensives and when necessary medications --Obesity; BMI 34.4, advised weight reduction when medically stable --DVT prophylaxis; Lovenox --Physical therapy/occupational therapy Closely monitor the patient and adjust management as needed Plan of care reviewed with the patient and her nurse Possible discharge in 1-2 days if stable History Interval history: Patient seen and examined medical records reviewed No new events reported by the nursing Scheduled for partial amputation of toe NPO for the procedure Vital signs reviewed Not in acute distress Hospitalist Physical - Constitutional Vitals: Temp Pulse Resp BP Pulse Ox 98.2 F 123 H 14 150/104 70 L 05/02/18 12:45 05/02/18 17:11 05/02/18 12:45 05/02/18 17:11 05/02/18 17:11 General appearance: Present: no acute distress, well-nourished, obese - EENT Eyes: Present: PERRL, EOM intact - Neck Neck: Present: supple, normal ROM - Respiratory Respiratory effort: normal Respiratory: bilateral: diminished, negative: rales, rhonchi, wheezing - Cardiovascular Rhythm: regular Heart Sounds: Present: S1 & S2 - Extremities Extremities: No edema, abnormal (status post right BKA) Extremity abnormal: other (diabetic foot infection left third digit) - Abdominal General gastrointestinal: soft, non-tender - Integumentary Integumentary: Present: clear, warm - Psychiatric Psychiatric: appropriate mood/affect, cooperative - Neurologic Neurologic: CNII-XII intact, moves all extremities Results - Labs CBC & Chem 7: 05/02/18 17:00 05/02/18 17:00 Labs: Laboratory Last Values WBC 13.4 K/mm3 (4.5-11.0) H 05/02/18 17:00 RBC 3.40 M/mm3 (3.65-5.03) L 05/02/18 17:00 Hgb 9.3 gm/dl (10.1-14.3) L 05/02/18 17:00 Hct 30.5 % (30.3-42.9) 05/02/18 17:00 MCV 90 fl (79-97) 05/02/18 17:00 MCH 27 pg (28-32) L 05/02/18 17:00 MCHC 31 % (30-34) 05/02/18 17:00 RDW 17.7 % (13.2-15.2) H 05/02/18 17:00 Plt Count 299 K/mm3 (140-440) 05/02/18 17:00 Lymph % (Auto) 15.0 % (13.4-35.0) 05/01/18 05:54 Mitchell % (Auto) 7.4 % (0.0-7.3) H 05/01/18 05:54 Eos % (Auto) 7.5 % (0.0-4.3) H 05/01/18 05:54 Baso % (Auto) 0.9 % (0.0-1.8) 05/01/18 05:54 Lymph # 1.5 K/mm3 (1.2-5.4) 05/01/18 05:54 Mitchell # 0.8 K/mm3 (0.0-0.8) 05/01/18 05:54 Eos # 0.8 K/mm3 (0.0-0.4) H 05/01/18 05:54 Baso # 0.1 K/mm3 (0.0-0.1) 05/01/18 05:54 Add Manual Diff Complete 05/02/18 17:00 Total Counted 100 05/02/18 17:00 Seg Neutrophils % 69.2 % (40.0-70.0) 05/01/18 05:54 Seg Neuts % (Manual) 70.0 % (40.0-70.0) 05/02/18 17:00 Band Neutrophils % 0 % 05/02/18 17:00 Lymphocytes % (Manual) 22.0 % (13.4-35.0) 05/02/18 17:00 Reactive Lymphs % (Man) 0 % 05/02/18 17:00 Monocytes % (Manual) 5.0 % (0.0-7.3) 05/02/18 17:00 Eosinophils % (Manual) 2.0 % (0.0-4.3) 05/02/18 17:00 Basophils % (Manual) 0 % (0.0-1.8) 05/02/18 17:00 Metamyelocytes % 1.0 % 05/02/18 17:00 Myelocytes % 0 % 05/02/18 17:00 Promyelocytes % 0 % 05/02/18 17:00 Blast Cells % 0 % 05/02/18 17:00 Nucleated RBC % 2.0 % (0.0-0.9) H 05/02/18 17:00 Seg Neutrophils # 7.0 K/mm3 (1.8-7.7) 05/01/18 05:54 Seg Neutrophils # Man 9.4 K/mm3 (1.8-7.7) H 05/02/18 17:00 Band Neutrophils # 0.0 K/mm3 05/02/18 17:00 Lymphocytes # (Manual) 2.9 K/mm3 (1.2-5.4) 05/02/18 17:00 Abs React Lymphs (Man) 0.0 K/mm3 05/02/18 17:00 Monocytes # (Manual) 0.7 K/mm3 (0.0-0.8) 05/02/18 17:00 Eosinophils # (Manual) 0.3 K/mm3 (0.0-0.4) 05/02/18 17:00 Basophils # (Manual) 0.0 K/mm3 (0.0-0.1) 05/02/18 17:00 Metamyelocytes # 0.1 K/mm3 05/02/18 17:00 Myelocytes # 0.0 K/mm3 05/02/18 17:00 Promyelocytes # 0.0 K/mm3 05/02/18 17:00 Blast Cells # 0.0 K/mm3 05/02/18 17:00 WBC Morphology Not Reportable 05/02/18 17:00 Hypersegmented Neuts Not Reportable 05/02/18 17:00 Hyposegmented Neuts Not Reportable 05/02/18 17:00 Hypogranular Neuts Not Reportable 05/02/18 17:00 Smudge Cells Not Reportable 05/02/18 17:00 Toxic Granulation Not Reportable 05/02/18 17:00 Toxic Vacuolation Not Reportable 05/02/18 17:00 Dohle Bodies Not Reportable 05/02/18 17:00 Pelger-Huet Anomaly Not Reportable 05/02/18 17:00 Magy Rods Not Reportable 05/02/18 17:00 Platelet Estimate Consistent w auto 05/02/18 17:00 Clumped Platelets Not Reportable 05/02/18 17:00 Plt Clumps, EDTA Not Reportable 05/02/18 17:00 Large Platelets 1+ 05/02/18 17:00 Giant Platelets Not Reportable 05/02/18 17:00 Platelet Satelliting Not Reportable 05/02/18 17:00 Plt Morphology Comment Not Reportable 05/02/18 17:00 RBC Morphology Not Reportable 05/02/18 17:00 Dimorphic RBCs Not Reportable 05/02/18 17:00 Polychromasia Not Reportable 05/02/18 17:00 Hypochromasia Not Reportable 05/02/18 17:00 Poikilocytosis 1+ 05/02/18 17:00 Anisocytosis 1+ 05/02/18 17:00 Microcytosis Not Reportable 05/02/18 17:00 Macrocytosis Not Reportable 05/02/18 17:00 Spherocytes Not Reportable 05/02/18 17:00 Pappenheimer Bodies Not Reportable 05/02/18 17:00 Sickle Cells Not Reportable 05/02/18 17:00 Target Cells Not Reportable 05/02/18 17:00 Tear Drop Cells Not Reportable 05/02/18 17:00 Ovalocytes Not Reportable 05/02/18 17:00 Helmet Cells Not Reportable 05/02/18 17:00 [place] Bodies Not Reportable 05/02/18 17:00 [place] Rings Not Reportable 05/02/18 17:00 [place] Cells Not Reportable 05/02/18 17:00 Bite Cells Not Reportable 05/02/18 17:00 Crenated Cell Not Reportable 05/02/18 17:00 Elliptocytes Not Reportable 05/02/18 17:00 Acanthocytes (Spur) Not Reportable 05/02/18 17:00 Rouleaux Not Reportable 05/02/18 17:00 Hemoglobin C Crystals Not Reportable 05/02/18 17:00 Schistocytes Not Reportable 05/02/18 17:00 Malaria parasites Not Reportable 05/02/18 17:00 Adonis Bodies Not Reportable 05/02/18 17:00 Hem Pathologist Commnt No 05/02/18 17:00 D-Dimer 3598.04 ng/mlDDU (0-234) H 04/30/18 04:25 POC ABG pH 7.128 (7.35-7.45) L 05/02/18 16:48 POC ABG pCO2 68.3 (35-45) H 05/02/18 16:48 POC ABG pO2 57 (80-105) L 05/02/18 16:48 POC ABG HCO3 22.6 05/02/18 16:48 POC ABG Total CO2 25 05/02/18 16:48 POC ABG O2 Sat 78 05/02/18 16:48 POC ABG Base Excess -7 05/02/18 16:48 FiO2 100 % 05/02/18 16:48 Sodium 146 mmol/L (137-145) H 05/02/18 17:00 Potassium 4.5 mmol/L (3.6-5.0) 05/02/18 17:00 Chloride 108.7 mmol/L (98-107) H 05/02/18 17:00 Carbon Dioxide 19 mmol/L (22-30) L 05/02/18 17:00 Anion Gap 23 mmol/L 05/02/18 17:00 BUN 31 mg/dL (7-17) H 05/02/18 17:00 Creatinine 2.1 mg/dL (0.7-1.2) H 05/02/18 17:00 Estimated GFR 31 ml/min 05/02/18 17:00 BUN/Creatinine Ratio 15 % 05/02/18 17:00 Glucose 189 mg/dL (65-100) H 05/02/18 17:00 POC Glucose 269 (70-105) H 05/02/18 17:01 Lactic Acid 6.70 mmol/L (0.7-2.0) H* 05/02/18 17:00 Calcium 6.9 mg/dL (8.4-10.2) L 05/02/18 17:00 Phosphorus 6.80 mg/dL (2.5-4.5) H 05/02/18 17:00 Magnesium 1.80 mg/dL (1.7-2.3) 05/02/18 17:00 Total Bilirubin 0.20 mg/dL (0.1-1.2) 05/02/18 17:00 Direct Bilirubin 0.2 mg/dL (0-0.2) 04/29/18 19:35 Indirect Bilirubin 0.5 mg/dL 04/29/18 19:35 AST 40 units/L (5-40) 05/02/18 17:00 ALT 16 units/L (7-56) 05/02/18 17:00 Alkaline Phosphatase 156 units/L (35-129) H 05/02/18 17:00 Troponin T 0.118 ng/mL (0.00-0.029) H* D 05/02/18 17:00 C-Reactive Protein 7.00 mg/dL (0.00-1.30) H 05/02/18 17:00 Total Protein 5.9 g/dL (6.3-8.2) L D 05/02/18 17:00 Albumin 1.8 g/dL (3.9-5) L 05/02/18 17:00 Albumin/Globulin Ratio 0.4 % 05/02/18 17:00 Triglycerides 99 mg/dL (2-149) 04/29/18 19:35 Cholesterol 134 mg/dL (50-199) 04/29/18 19:35 LDL Cholesterol Direct 65 mg/dL (50-130) 04/29/18 19:35 HDL Cholesterol 56 mg/dL (40-59) 04/29/18 19:35 Cholesterol/HDL Ratio 2.39 % 04/29/18 19:35 Lipase 6 units/L (13-60) L 04/29/18 19:35 HCG, Qual Positive (Negative) 04/29/18 19:35 HCG, Quant 6.94 mIU/mL (0-4) H 04/29/18 19:35 Urine Color Shayla (Yellow) 04/30/18 07:15 Urine Turbidity Cloudy (Clear) 04/30/18 07:15 Urine pH 5.0 (5.0-7.0) 04/30/18 07:15 Ur Specific Cedar 1.017 (1.003-1.030) 04/30/18 07:15 Urine Protein >2000 mg dl mg/dL (Negative) 04/30/18 07:15 Urine Glucose (UA) 50 mg/dL (Negative) 04/30/18 07:15 Urine Ketones Tr mg/dL (Negative) 04/30/18 07:15 Urine Blood Sm (Negative) 04/30/18 07:15 Urine Nitrite Neg (Negative) 04/30/18 07:15 Urine Bilirubin Neg (Negative) 04/30/18 07:15 Urine Urobilinogen < 2.0 mg/dL (<2.0) 04/30/18 07:15 Ur Leukocyte Esterase Mod (Negative) 04/30/18 07:15 Urine WBC (Auto) > 182.0 /HPF (0.0-6.0) H 04/30/18 07:15 Urine RBC (Auto) 149.0 /HPF (0.0-6.0) 04/30/18 07:15 U Epithel Cells (Auto) 4.0 /HPF (0-13.0) 04/30/18 07:15 Urine Bacteria (Auto) 4+ /HPF (Negative) 04/30/18 07:15 Urine WBC Clumps 3+ /HPF 04/30/18 07:15 Urine Mucus Few /HPF 04/30/18 07:15 Nutrition/Malnutrition Assess - Dietary Evaluation Nutrition/Malnutrition Findings: Nutrition Notes Start: 05/01/18 14:57 Freq: Status: Active Protocol: Document 05/01/18 15:00 ER (Rec: 05/01/18 15:15 ER [id number]) Co-Sign 05/01/18 15:00 LP Nutrition Notes 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 Garry score 18. Pt. stated she is eating 100% of meals and does not have any N/V/D/C or chewing/swallowing difficulties or previous weight-loss. Pt. has a right BKA, but pt. does not want Guilherme. #1 Nutrition Diagnosis No nutrition diagnosis at this time Nutrition Intervention Revisit per MD consult or patient Sign Off request:
--- NOTE | 2018-05-02 22:24 | Consultation ---
PULMONARY AND CRITICAL CARE CONSULTATION REQUESTING PHYSICIAN: Dr. Mary Short. REASON FOR CONSULTATION: Status post cardiac arrest with return of spontaneous circulation. CHIEF COMPLAINT AND HISTORY OF PRESENT ILLNESS: The patient is a 43-year-old female with past medical history significant amongst other things for a diagnosis of diabetes and likely peripheral vascular disease, status post right rrshr-aih-qehw amputation, who came in to the Emergency Room on the , which is about 2 days ago, complaining of right-sided abdominal pain, increasing shortness of breath and some dysuria and some hematuria. She was evaluated in the Emergency Room. She had denied nausea and vomiting in the Emergency Room, but I am not sure if she had any episodes of vomiting, plus or minus aspiration prior to coming in. She had an elevated D-dimer. A V/Q scan was negative. Venous thromboembolic disorder workup was negative. She was admitted ultimately to the medical floor with a non-ST elevation myocardial infarction, atypical chest pain and had been on the medical floor. I believe she went for a semi-elective procedure earlier today; however, while in the OR after induction of anesthesia, the patient reportedly francine'd down. She had a PEA arrest, this is what I was told and she achieved return of spontaneous circulation, was intubated, had another episode, again achieved return of spontaneous circulation, brought in to the intensive care unit and again suffered 2 rounds of cardiac arrest while she was in there. The patient's tobacco use/abuse history is unknown at this point. The above is as much of the history of presentation as I have. PAST MEDICAL HISTORY: Diabetes, history of hypertension, history of hyperlipidemia, likely peripheral vascular disease. She is obese and has history of tobacco abuse. PAST SURGICAL HISTORY: Right fcwlz-utc-wbia amputation. MEDICATIONS: She was on at the time I stopped by to see were reviewed, pertinent medications include the following: Tylenol 650 mg p.o. q. 4 hours p.r.n. mild pain, Xanax 1 mg p.o. at bedtime p.r.n. anxiety, Rocephin 2 grams IV daily, Pepcid 20 mg IV preop, hydralazine 25 mg p.o. q. 8 hours scheduled, insulin 70/30 12 units subq b.i.d., insulin via sliding scale, Keppra 750 mg p.o. b.i.d., Lopressor 25 mg p.o. b.i.d., Versed 2 mg preoperatively. She is now on a Levophed drip at 20 mcg per minute. ALLERGIES: CODEINE AND EGGPLANT, nature of this allergy is unknown. DIET: Obese lady, acute weight loss or gain history is unknown. FAMILY AND SOCIAL HISTORY: Apparently lives in the community with family. She does have a tobacco smoking history, alcohol, illicit drug use were denied at presentation and there is a family history of hypertension. REVIEW OF SYSTEMS: Unobtainable secondary to the patient's medical and mental condition. Since she has been here, no gross hematochezia or melena has been reported to me. No witnessed seizures as far as I can tell. PHYSICAL EXAMINATION: VITAL SIGNS: At presentation in the Emergency Room, review of vital signs showed that she was afebrile, temperature 98.8 degrees Fahrenheit, pulse 115, respiratory rate of 13, blood pressure 151/103, O2 sats 97%, inspired oxygen concentration was not recorded. At the time I saw her, she was on 100% FiO2, being bagged via the ET tube, but O2 sats were in the 60s. GENERAL: She is a middle-aged obese female. Normocephalic, intubated on the mechanical ventilator with some bloody effluent in the endotracheal tube. Nonresponsive. HEAD, EYES, EARS, NOSE AND THROAT: She is anicteric. No conjunctival erythema. Oropharynx is moist. Endotracheal tube is taped at the lips around 22 cm. Grossly, no palpable lymph nodes in the supraclavicular or submandibular lymph node chains. LUNGS: Auscultation of both lung lentz reveal bilateral rales, no wheezing. HEART: Heart sounds 1 and 2 are heard. At the time of my evaluation, it was regular tachycardia. This was post return of spontaneous circulation. No rubs or murmurs. ABDOMEN: Soft, full, bowel sounds are positive, but hypoactive. Does not appear tender. EXTREMITIES: Without overt digital clubbing or cyanosis. No pedal edema. She has a right below the knee amputation. Dorsalis pedis pulses weakly palpable on the left. NEUROLOGIC: Pupils equal, round, about 7 mm, sluggishly if at all reactive to light. Extraocular muscle movements could not be assessed. Otherwise, she did not have any spontaneous movements to extremities. LABORATORY DATA: From my review are as follows: Admission white cell count 13,800, hemoglobin 11.2, hematocrit 34.4, platelet count 298. D-dimer 3598. Serum sodium 142, potassium 4.6, chloride 106, bicarbonate 21, BUN 20, creatinine 1.6, glucose 147. Troponin was 0.140 at presentation. Albumin was low at 2.8, otherwise liver function tests within normal limits. Urine test was positive. Urinalysis was negative for nitrites, but showed moderate leukocyte esterase and greater than 182 white cells per high power field. Microbiology, tissue cultures no growth to date. RADIOLOGICAL DATA: Radiographic studies have been reviewed. Admission chest x-ray shows gross cardiomegaly, possibly mild interstitial edema. She has just had a repeat chest x-ray done that I took a look at on the x-ray machine. She has a dense infiltrate in the right lung, almost all the way to the apex, cannot rule out a pleural effusion there. She also had an infiltrate in the left lower lobe region and there appeared to be some air bronchogram-type features even on the chest x-ray, suspicious for possible aspiration event. ASSESSMENT AND PLAN: 1. Acute hypoxemic respiratory failure, on mechanical ventilator support. 2. Status post cardiac arrest with return of spontaneous circulation. 3. Pneumonia. 4. Possible pulmonary edema. 5. Diabetic ketoacidosis. 6. Likely peripheral vascular disease. 7. Hypertension. 8. Hyperlipidemia. 9. Tobacco use disorder. 10. Obesity. PLAN: Initial ABG was venous but did clearly show acidosis. I do feel that a metabolic acidosis might be one of the things driving her ____; however, it is really unclear what else might be going on. I do feel there is an aspiration event that might have happened at some point and there may have been some medication interaction around the time of induction. From a respiratory standpoint, we will keep her on a full mechanical ventilatory support. We will hyperventilate in the short time to correct for any metabolic acidosis component. Aspiration precautions will be maintained. Ventilator-associated pneumonia bundle has been instituted. We will keep the PEEP at 12-14 in the short term for possible acute respiratory distress syndrome. A 2D echocardiogram will ultimately be ordered. Cardiac enzymes will be ordered. She is going to be pancultured. Electrolytes will be corrected as necessary. We will put her on a D5W drip with 3 amps of bicarbonate per liter and run it at about 150 mL per hour in the short term. She will be started on broad-spectrum antibiotic therapy. Cardiac enzymes will be monitored. Cardiology evaluation will be instituted depend on the results of an EKG and cardiac enzymes. She has been started on multiple vasopressors, Levophed and vasopressin at this time. Target mean arterial pressure of 65 mmHg or more. She will be kept on GI prophylaxis. She will be on DVT prophylaxis. Flu and pneumonia vaccination will be addressed per protocol. Thank you very much for the consult. We will follow along. We will make further recommendations as picture progresses/becomes clearer. At this time, I spent about 35-40 minutes of critical care time without overlap excluding any procedural time that may be necessary. JOB# [id number] SHEN/MAKENZIE
--- NOTE | 2018-06-17 14:11 | Death Summary ---
Summary - Providers Date of service: 05/02/18 Consults: 04/30/18 04:48 Consult to Cardiology [CONS] Routine Consulting Provider: ROCK CARLOS Reason For Exam: Elevated troponin 05/01/18 08:49 Consult to Wound/ET Nurse [CONS] Routine Reason For Exam: wound eval 05/02/18 16:35 Consult to Physician [CONS] Routine Comment: Consulting Provider: GAIL AGUILLON Physician Instructions: Reason For Exam: Cr Care cosult/Cardiac arrest 05/02/18 16:54 Consult to Dietitian/Nutrition [CONS] Routine Physician Instructions: Reason For Exam: Reason for Consult: Evaluate nutritional intake Attending: JAMIE MCADAMS - summary Date of admission: 04/30/18 07:20 Date of : 05/02/18 Reason for admission: abdominal pain/non-ST elevation/diabetic foot ulcer/ Significant findings: 43-year-old female patient was admitted through emergency room with abdominal pain and right-sided chest pain. Initial evaluation was consistent with non-ST elevation TN evaluated and managed by cardiology, had elevated d-dimer is negative for PE. Patient also had diabetic foot ulcers evaluated by surgery were planning surgical procedure Had lactic acidosis and severe septic shock admitted to ICU and placed on pressors and IV antibiotics Time of admission patient had nonspecific positive beta hCG, subsequently underwent pelvic and transvaginal ultrasound No evidence of fetus or noted. Patient was seen and evaluated and managed by cardiology, pulmonary critical and surgery On 05/02/2018, patient was scheduled for surgical procedure partial amputation of the toe[diabetic foot ulcer] Patient was scheduled for partial amputation of left third toe. Patient was taken to the OR and as per medical records, patient went into cardiac arrest even before the surgery was started Francisco moon was called, CPR was done per ACLS protocol in OR, patient was intubated and transferred to ICU. As the patient was being wheeled in to ICU , patient had another cardiac arrest, FRANCISCO MOON was called CPR per ACLS protocol was run by oysterman Dr. Escobar. The patient revived briefly Patient subsequently had cardiac arrests multiple times requiring CPR per ACLS protocol ,Refer to code records Patient was hypotensive requiring multiple pressors, septic shock, ARDS, possible pulmonary edema with very poor prognosis Family was not available,could not be contacted ,tried by multiple physicians and administrators . And finally could contact [facility] Mr.Ronald Gerson Valladares, a cousin of the patient from [place]. Patient's critical condition, Multiple cardiac arrests and resuscitation efforts, poor prognosis discussed with the cousin from [place] Cousin who is a medical person, requested DO NOT RESUSCITATE on further events of cardiac arrest. Patient was made DO NOT RESUSCITATE status. Patient remained critically ill hypotensive, on pressors on ventilatory support, in severe distress Later that afternoon Nurse called and reported that patient [patient was DO NOT RESUSCITATE] When I evaluated the patient patient is unresponsive, pupils dilated and fixed No cardiopulmonary activity noted, pronounced Time of 18:47 Hrs [6:47 pm] on 05/02/2018 Director Advanced picked up the body to determine the cause of Final Diagnosis: --Cardiac Arrest : --Status post multiple events of cardiac arrest; Status post CPR, per ACLS protocol, could not be revived --ARDS /pulmonary edema --Acute respiratory failure; on ventilatory support, and urinary following --Severe septic shock; requiring pressors, IV antibiotics, --Lactic acidosis; secondary to sepsis --History of diabetic foot ulcer; wound care and antibiotics, --Chronic kidney disease; nephrology consult as needed; --Non-ST elevation TN/cardiology following, continue current management --Diabetic neuropathy; on Neurontin --Moderate to severe malnutrition; supportive care --DO NOT RESUSCITATE status[ per [facility] ] Patient is critically ill with very poor prognosis the patient's cousin Gerson Valladares was aware. Patient on 05/02/2018 at 1847 hrs. Pertinent studies: Chest x-ray CT abdomen and pelvis Transvaginal ultrasound Abdominal ultrasound ultrasound VQ scan Echocardiogram Lower extremity venous Doppler Intubation/ventilatory support Multiple events of CPR per ACLS protocol - Final diagnosis (1) Cardiac arrest Note: Final diagnosis: (2) Septic shock Note: Final diagnosis: (3) Acute respiratory failure Note: Final diagnosis: (4) ARDS (adult respiratory distress syndrome) Note: Final diagnosis: (5) NSTEMI (non-ST elevation myocardial infarction) Note: Final diagnosis: (6) CKD (chronic kidney disease) Qualifiers: Chronic kidney disease stage: unspecified stage Qualified Code(s): N18.9 - Chronic kidney disease, unspecified Note: Final diagnosis: (7) Diabetic foot ulcer Qualifiers: Diabetic foot ulcer location: toe Laterality: left Non-pressure ulcer stage: with bone involvement without evidence of necrosis Note: Final diagnosis: (8) Pulmonary edema Note: Final diagnosis: (9) Lactic acidosis Note: Final diagnosis:
== END 2018-05-02 18:47 ==
LOC: ED 20:36 → 4A 04-30 07:20 → CC1 05-02 15:51
PROVIDERS: ADMIT Internal Medicine; ATTEND Internal Medicine
PROC: 5A1935Z Respiratory Ventilation, Less than 24 Consecutive Hours (ICD-10-PCS; principal; 2018-05-02)
PROC: 0BH17EZ Insertion of Endotracheal Airway into Trachea, Via Natural or Artificial Opening (ICD-10-PCS; 2018-05-02)
PROC: 4A033R1 Measurement of Arterial Saturation, Peripheral, Percutaneous Approach (ICD-10-PCS; 2018-05-02)
PROC: 5A12012 Performance of Cardiac Output, Single, Manual (ICD-10-PCS; 2018-05-02)
PROC: 06HM33Z Insertion of Infusion Device into Right Femoral Vein, Percutaneous Approach (ICD-10-PCS; 2018-05-02)
DX: I21.4 Non-ST elevation (NSTEMI) myocardial infarction (principal); N17.0 Acute kidney failure with tubular necrosis; E43 Unspecified severe protein-calorie malnutrition; J96.01 Acute respiratory failure with hypoxia; E11.10 Type 2 diabetes mellitus with ketoacidosis without coma; K21.9 Gastro-esophageal reflux disease without esophagitis; J95.851 Ventilator associated pneumonia; M19.90 Unspecified osteoarthritis, unspecified site; J45.909 Unspecified asthma, uncomplicated; Z89.511 Acquired absence of right leg below knee; F17.210 Nicotine dependence, cigarettes, uncomplicated; Z79.899 Other long term (current) drug therapy; M79.7 Fibromyalgia; E11.40 Type 2 diabetes mellitus with diabetic neuropathy, unspecified; I12.9 Hypertensive chronic kidney disease with stage 1 through stage 4 chronic kidney disease, or unspecified chronic kidney disease; E11.51 Type 2 diabetes mellitus with diabetic peripheral angiopathy without gangrene; Z82.49 Family history of ischemic heart disease and other diseases of the circulatory system; Z88.5 Allergy status to narcotic agent; Z88.8 Allergy status to other drugs, medicaments and biological substances; E11.621 Type 2 diabetes mellitus with foot ulcer; L97.529 Non-pressure chronic ulcer of other part of left foot with unspecified severity; I25.10 Atherosclerotic heart disease of native coronary artery without angina pectoris; N39.0 Urinary tract infection, site not specified; G40.909 Epilepsy, unspecified, not intractable, without status epilepticus; E66.9 Obesity, unspecified; Z68.35 Body mass index [BMI] 35.0-35.9, adult; D64.9 Anemia, unspecified; I46.9 Cardiac arrest, cause unspecified; Z66 Do not resuscitate; E78.5 Hyperlipidemia, unspecified; Y84.8 Other medical procedures as the cause of abnormal reaction of the patient, or of later complication, without mention of misadventure at the time of the procedure
CPT/HCPCS: 36415; 36600; 71045; 71046; 74176; 76700; 76801; 76817; 78582; 80048; 80053; 80061; 80076; 81001; 82140; 82803; 82962; 83690; 83735; 84100; 84484; 84702; 84703; 85007; 85025; 85027; 85379; 86140; 87070; 87116; 87205; 90686; 93005; 93010; 93306; 93970; 94002; 94003; 96374; 96375; 99285; G0378; A9540; A9558; J0171; J0461; J0696; J1170; J1265; J1815; J2250; J2270; J2405; J2704; J7030; J7070